=== PATIENT | female | born 1965 | race Caucasian/White ===

== ENCOUNTER 2017-07-09 14:45 | Outpatient (RCR) | payer OTHER, SELFPAY ==
[2017-07-02 15:13] VITALS: BP 137/86; PULSE 16; RESP 16; TEMP 37; BMI 36.8
--- NOTE | 2017-07-02 16:41 | PCM.WC.HP ---
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 She developed the ulcer after a varicose vein in her julio burst. She had stitches placed to close the area initially but it never healed. She has been applying neosporin, carmex and medi-honey to the wound at different times and nothing has helped. She has been prescribed compression stockings but is unable to tolerate wearing them. 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 She denies fever, chills, increased pain or erythema. 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) H/O deep venous thrombosis (Chronic) Lymphedema (Chronic) Surgical History: no surgical history Allergies/Adverse Reactions: Allergies No Known Allergies Allergy (Verified 07/02/17 17:04) Home Medications: Ambulatory Orders Medication Instructions Recorded Apixaban [Eliquis] 2.5 mg PO BID 07/02/17 - Family History Maternal Diabetes Paternal Diabetes Lives: Spouse/ Significant Other Smoking Status: Former smoker Tobacco Use: Non-smoker Alcohol: None Drugs: None Review of Systems Constitutional: Denies: Chills, Fever, Weight Change Eyes: Denies: Pain, Vision Change HEENT: Denies: Difficulty Hearing, Difficulty Swallowing, Sinus Congestion Cardiovascular: Reports: Edema. Denies: Chest Pain, Palpitations Respiratory: Denies: Cough, Shortness of Breath Gastrointestinal: Denies: Diarrhea, Nausea, Vomiting Genitourinary: Denies: Dysuria, Hematuria Skin: Reports: Wounds Endocrine: Denies: Heat/ Cold Intolerance, Polydipsia, Polyuria Hematologic/ Lymphatic: Denies: Easy Bruising, Easy Bleeding - Physical Exam Vital Signs Temp Pulse Resp BP 98.6 F 16 L 16 137/86 H 07/02/17 15:13 07/02/17 15:13 07/02/17 15:13 07/02/17 15:13 General: Alert, Oriented x3, Cooperative, No apparent distress HEENT: Atraumatic, Normocephalic Oral: Moist Mucosa Neck: Supple, No JVD, Negative Carotid Bruits Lungs: Clear to auscultation Cardiovascular: Regular rate, Regular Rhythm, - - occ. ectopy Abdomen: Soft, Non Tender, Obese Extremities: Edema, Peripheral Pulses Normal Skin: Ulcer/ Wound Wound Measurements and Assessment - Nurse 1 - General Ulcer Measurement Start: 07/02/17 15:13 Freq: Status: Active Protocol: Activity Type Activity Date Activity User E-Sign Co-Sign Detail Recorded Client Recorded Date Recorded By Document 07/02/17 15:13 MW [id number] 07/02/17 15:32 MW 07/02/17 15:13 Wound Center Nurse 1 [Ulcer Assessment Protocol: .WD.LOC] #1 Left julio cluster -Combined with other wound No -Current Size (cm) - Length 1.4 -Current Size (cm) - Width 2.0 -Current Size (cm) - Depth 0.2 -Total Square Cm 2.80 -Date of Last Picture (Recall this 07/02/17 field) -Photo Taken Yes -Epithelialization None Present -Tunneling No -Undermining/Tunneling No -Circular Undermining No -Exudate Amt Small (1-33%) -Exudate Type Serosanguineous -Wound Margin Distinct, Outline Attached -Granulation Amt Small (1-33%) -Granulation Quality [place] -Slough/Fibrin Yes -Necrosis Amt Medium (34-66%) -Necrotic Tissue Type Adherent Slough -Structure Exposed N/A -Texture (Kira-wound Skin Appearance) Assessed Localized Edema Scarring -Moisture (Kira-wound Skin Appearance Assessed ) Weeping -Color (Kira-wound Skin Appearance) Assessed Rubor -Temperature (Kira-wound Skin No Abnormality Appearance) (Pt Warm) -Tenderness on Palpation (Kira-wound No Skin Appearance) -Ulcer Cleansing Rinsed/ Irrigated with Saline -Foul Odor after Cleansing No -Anesthetic Used 4% Lidocaine Solution [Edema Assessment] -Lower Limb Edema Present No -Right Calf (cm) 45.4 -Right Ankle (cm) 26.4 -Left Calf (cm) 46.4 -Left Ankle (cm) 26.8 WC - Nurse 2 - General Ulcer CM Notes Start: 07/02/17 15:13 Freq: Status: Active Protocol: Activity Type Activity Date Activity User E-Sign Co-Sign Detail Recorded Client Recorded Date Recorded By Document 07/02/17 16:06 MW [id number] 07/02/17 16:11 MW 07/02/17 16:06 Wound Center Nurse 2 [Procedure/Treatment] #1 Left julio cluster -Time 16:06 -Correct Patient Yes -Correct Side, Site, Position Yes -Correct Procedure Yes -Procedure Performed Yes -Type of Procedure Debridement -Clinical Debridement Subcutaneous -Post Debridement Size (cm) - Length 1.5 -Post Debridement Size (cm) - Width 1.7 -Post Debridement Size (cm) - Depth 0.2 -Total Square Cm 2.55 -Wound/Ulcer Outcome Not Healed -Foul Odor after Cleansing No -Bioengineered Tissue No -Cetacaine [place] No -Bleeding Controlled with Pressure -Treatment Response Procedure Tolerated Well [See Physician Procedure note for Specifics] Pain Scale: 0-10 Numeric [Pain] -Is Patient Pain Free? Yes Psych/Mental Status: Normal Affect, Appropriate Debridement Note Post-Debridement Measurements/Treatment WC - Nurse 2 - General Ulcer CM Notes Start: 07/02/17 15:13 Freq: Status: Active Protocol: Activity Type Activity Date Activity User E-Sign Co-Sign Detail Recorded Client Recorded Date Recorded By Document 07/02/17 16:06 MW [id number] 07/02/17 16:11 MW 07/02/17 16:06 Wound Center Nurse 2 #1 Left julio cluster -Time 16:06 -Correct Patient Yes -Correct Side, Site, Position Yes -Correct Procedure Yes -Procedure Performed Yes -Type of Procedure Debridement -Clinical Debridement Subcutaneous -Post Debridement Size (cm) - Length 1.5 -Post Debridement Size (cm) - Width 1.7 -Post Debridement Size (cm) - Depth 0.2 -Total Square Cm 2.55 -Wound/Ulcer Outcome Not Healed -Foul Odor after Cleansing No -Bioengineered Tissue No -Cetacaine [place] No -Bleeding Controlled with Pressure -Treatment Response Procedure Tolerated Well Pain Scale: 0-10 Numeric Is Patient Pain Free? 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 lymphedema Plan: Fannie's wounds were evaluated and debrided today. Will use Debbie to her wounds once daily and treat her edema with tubigrips for compression. Will obtain recent vascular testing she had done in the summer. Discussed importance of decreasing edema and ways that this can be acheived. Advised her to elevate her legs when possible and avoid idle standing or sitting. Encouraged her to activate her calf muscles when possible while standing at work. Wound/ulcer cultured. Will treat based on results. Also, gave tramadol 50 mg #28 to use as needed for pain. OARRS appropriate and no signs of diversion or abuse. Advised to call if increased pain, erythema, edema or fever or chills. F/U 1 week.
--- NOTE | 2017-07-02 17:00 | HP.PCM_ITS ---
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 She developed the ulcer after a varicose vein in her julio burst. She had stitches placed to close the area initially but it never healed. She has been applying neosporin, carmex and medi-honey to the wound at different times and nothing has helped. She has been prescribed compression stockings but is unable to tolerate wearing them. 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 She denies fever , chills, increased pain or erythema. 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) H/O deep venous thrombosis (Chronic) Lymphedema (Chronic) Surgical History: no surgical history Allergies/Adverse Reactions: Allergies No Known Allergies Allergy (Verified 07/02/17 17:04) Home Medications: Ambulatory Orders Medication Instructions Recorded Apixaban [Eliquis] 2.5 mg PO BID 07/02/17 - Family History Maternal Diabetes Paternal Diabetes Lives: Spouse/ Significant Other Smoking Status: Former smoker Tobacco Use: Non-smoker Alcohol: None Drugs: None Review of Systems Constitutional: Denies: Chills, Fever, Weight Change Eyes: Denies: Pain, Vision Change HEENT: Denies: Difficulty Hearing, Difficulty Swallowing, Sinus Congestion Cardiovascular: Reports: Edema. Denies: Chest Pain, Palpitations Respiratory: Denies: Cough, Shortness of Breath Gastrointestinal: Denies: Diarrhea, Nausea, Vomiting Genitourinary: Denies: Dysuria, Hematuria Skin: Reports: Wounds Endocrine: Denies: Heat/ Cold Intolerance, Polydipsia, Polyuria Hematologic/ Lymphatic: Denies: Easy Bruising, Easy Bleeding - Physical Exam Vital Signs Temp Pulse Resp BP 98.6 F 16 L 16 137/86 H 07/02/17 15:13 07/02/17 15:13 07/02/17 15:13 07/02/17 15:13 General: Alert, Oriented x3, Cooperative, No apparent distress HEENT: Atraumatic, Normocephalic Oral: Moist Mucosa Neck: Supple, No JVD, Negative Carotid Bruits Lungs: Clear to auscultation Cardiovascular: Regular rate, Regular Rhythm, - - occ. ectopy Abdomen: Soft, Non Tender, Obese Extremities: Edema, Peripheral Pulses Normal Skin: Ulcer/ Wound Wound Measurements and Assessment - Nurse 1 - General Ulcer Measurement Start: 07/02/17 15:13 Freq: Status: Active Protocol: Activity Type Activity Date Activity User E-Sign Co-Sign Detail Recorded Client Recorded Date Recorded By Document 07/02/17 15:13 MW [id number] 07/02/17 15:32 MW 07/02/17 15:13 Wound Center Nurse 1 [Ulcer Assessment Protocol: .WD.LOC] #1 Left julio cluster -Combined with other wound No -Current Size (cm) - Length 1.4 -Current Size (cm) - Width 2.0 -Current Size (cm) - Depth 0.2 -Total Square Cm 2.80 -Date of Last Picture (Recall this 07/02/17 field) -Photo Taken Yes -Epithelialization None Present -Tunneling No -Undermining/Tunneling No -Circular Undermining No -Exudate Amt Small (1-33%) -Exudate Type Serosanguineous -Wound Margin Distinct, Outline Attached -Granulation Amt Small (1-33%) -Granulation Quality [place] -Slough/Fibrin Yes -Necrosis Amt Medium (34-66%) -Necrotic Tissue Type Adherent Slough -Structure Exposed N/A -Texture (Kira-wound Skin Appearance) Assessed Localized Edema Scarring -Moisture (Kira-wound Skin Appearance Assessed ) Weeping -Color (Kira-wound Skin Appearance) Assessed Rubor -Temperature (Kira-wound Skin No Abnormality Appearance) (Pt Warm) -Tenderness on Palpation (Kira-wound No Skin Appearance) -Ulcer Cleansing Rinsed/ Irrigated with Saline -Foul Odor after Cleansing No -Anesthetic Used 4% Lidocaine Solution [Edema Assessment] -Lower Limb Edema Present No -Right Calf (cm) 45.4 -Right Ankle (cm) 26.4 -Left Calf (cm) 46.4 -Left Ankle (cm) 26.8 WC - Nurse 2 - General Ulcer CM Notes Start: 07/02/17 15:13 Freq: Status: Active Protocol: Activity Type Activity Date Activity User E-Sign Co-Sign Detail Recorded Client Recorded Date Recorded By Document 07/02/17 16:06 MW [id number] 07/02/17 16:11 MW 07/02/17 16:06 Wound Center Nurse 2 [Procedure/Treatment] #1 Left julio cluster -Time 16:06 -Correct Patient Yes -Correct Side, Site, Position Yes -Correct Procedure Yes -Procedure Performed Yes -Type of Procedure Debridement -Clinical Debridement Subcutaneous -Post Debridement Size (cm) - Length 1.5 -Post Debridement Size (cm) - Width 1.7 -Post Debridement Size (cm) - Depth 0.2 -Total Square Cm 2.55 -Wound/Ulcer Outcome Not Healed -Foul Odor after Cleansing No -Bioengineered Tissue No -Cetacaine [place] No -Bleeding Controlled with Pressure -Treatment Response Procedure Tolerated Well [See Physician Procedure note for Specifics] Pain Scale: 0-10 Numeric [Pain] -Is Patient Pain Free? Yes Psych/Mental Status: Normal Affect, Appropriate Debridement Note Post-Debridement Measurements/Treatment WC - Nurse 2 - General Ulcer CM Notes Start: 07/02/17 15:13 Freq: Status: Active Protocol: Activity Type Activity Date Activity User E-Sign Co-Sign Detail Recorded Client Recorded Date Recorded By Document 07/02/17 16:06 MW [id number] 07/02/17 16:11 MW 07/02/17 16:06 Wound Center Nurse 2 #1 Left julio cluster -Time 16:06 -Correct Patient Yes -Correct Side, Site, Position Yes -Correct Procedure Yes -Procedure Performed Yes -Type of Procedure Debridement -Clinical Debridement Subcutaneous -Post Debridement Size (cm) - Length 1.5 -Post Debridement Size (cm) - Width 1.7 -Post Debridement Size (cm) - Depth 0.2 -Total Square Cm 2.55 -Wound/Ulcer Outcome Not Healed -Foul Odor after Cleansing No -Bioengineered Tissue No -Cetacaine [place] No -Bleeding Controlled with Pressure -Treatment Response Procedure Tolerated Well Pain Scale: 0-10 Numeric Is Patient Pain Free? 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 lymphedema Plan: Fannie's wounds were evaluated and debrided today. Will use Debbie to her wounds once daily and treat her edema with tubigrips for compression. Will obtain recent vascular testing she had done in the summer. Discussed importance of decreasing edema and ways that this can be acheived. Advised her to elevate her legs when possible and avoid idle standing or sitting. Encouraged her to activate her calf muscles when possible while standing at work. Wound/ulcer cultured. Will treat based on results. Also, gave tramadol 50 mg #28 to use as needed for pain. OARRS appropriate and no signs of diversion or abuse. Advised to call if increased pain, erythema, edema or fever or chills. F/U 1 week.
[2017-07-09 16:00] VITALS: BP 140/96; PULSE 87; RESP 18; TEMP 37.4; BMI 36.8
--- NOTE | 2017-07-09 20:08 | PCM.WC.PN ---
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 She developed the ulcer after a varicose vein in her julio burst. She had stitches placed to close the area initially but it never healed. She has been applying neosporin, carmex and medi-honey to the wound at different times and nothing has helped. She has been prescribed compression stockings but is unable to tolerate wearing them. 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 She denies fever, chills, increased pain or erythema. Progress of Wound: Fannie is here for follow up of nonhealing wound/ulcer of her left julio. Debbie was used on the wound for the last week but she states that it was very adherent and dried to the wound. She also has had increased pain. Wound culture taken last week was positive for coag neg. staph which was felt to be skin contaminant and no sensitivities were performed by the micro lab. She denies fever or chills or incresed drainage. She tolerated compression. - Physical Exam Vital Signs Temp Pulse Resp BP 99.3 F H 87 18 140/96 H 07/09/17 16:00 07/09/17 16:00 07/09/17 16:00 01/26/18 16:00 General: Alert, Oriented x3, Cooperative, No apparent distress HEENT: Atraumatic, Normocephalic Oral: Moist Mucosa Abdomen: Obese Extremities: Edema Skin: Ulcer/ Wound Wound Measurements and Assessment - Nurse 1 - General Ulcer Measurement Start: 07/02/17 15:13 Freq: Status: Active Protocol: Activity Type Activity Date Activity User E-Sign Co-Sign Detail Recorded Client Recorded Date Recorded By Document 07/09/17 16:00 MW [id number] 07/09/17 16:02 MW 07/09/17 16:00 Wound Center Nurse 1 [Ulcer Assessment Protocol: .WD.LOC] #1 Left julio cluster -Current Size (cm) - Length 1.5 -Current Size (cm) - Width 1.5 -Current Size (cm) - Depth 0.1 -Total Square Cm 2.25 -Photo Taken No -Exudate Amt Small (1-33%) -Exudate Type Serosanguineous -Wound Margin Distinct, Outline Attached -Granulation Amt Small (1-33%) -Granulation Quality [place] -Necrosis Amt Small (1-33%) -Necrotic Tissue Type Adherent Slough -Structure Exposed N/A -Texture (Kira-wound Skin Appearance) Localized Edema -Moisture (Kira-wound Skin Appearance No Abnormality ) -Color (Kira-wound Skin Appearance) Erythema -Temperature (Kira-wound Skin No Abnormality Appearance) (Pt Warm) -Ulcer Cleansing Rinsed/ Irrigated with Saline -Foul Odor after Cleansing No -Anesthetic Used 4% Lidocaine Solution [Edema Assessment] -Left Calf (cm) 46.9 -Left Ankle (cm) 29.4 WC - Nurse 2 - General Ulcer CM Notes Start: 07/02/17 15:13 Freq: Status: Active Protocol: Activity Type Activity Date Activity User E-Sign Co-Sign Detail Recorded Client Recorded Date Recorded By Document 07/09/17 16:26 TM [id number] 07/09/17 16:33 TM 07/09/17 16:26 Wound Center Nurse 2 [Procedure/Treatment] #1 Left julio cluster -Time 16:31 -Correct Patient Yes -Correct Side, Site, Position Yes -Correct Procedure Yes -Procedure Performed Yes -Type of Procedure Debridement -Clinical Debridement Subcutaneous -Post Debridement Size (cm) - Length 1.2 -Post Debridement Size (cm) - Width 1.5 -Post Debridement Size (cm) - Depth 0.2 -Total Square Cm 1.80 -Wound/Ulcer Outcome Not Healed -Ulcer Cleansing Rinsed/ Irrigated with Saline -Foul Odor after Cleansing No -Bioengineered Tissue No -Cetacaine [place] No -Topical Lidocaine (%) 5 -Bleeding Controlled with Pressure -Treatment Response Procedure Tolerated Well [See Physician Procedure note for Specifics] Pain Scale: 0-10 Numeric [Pain] -Is Patient Pain Free? Yes Psych/Mental Status: Normal Affect, Appropriate Debridement Note Post-Debridement Measurements/Treatment WC - Nurse 2 - General Ulcer CM Notes Start: 07/02/17 15:13 Freq: Status: Active Protocol: Activity Type Activity Date Activity User E-Sign Co-Sign Detail Recorded Client Recorded Date Recorded By Document 07/02/17 16:06 MW [id number] 07/02/17 16:11 MW Document 07/09/17 16:26 TM [id number] 07/09/17 16:33 TM 07/02/17 07/09/17 16:06 16:26 Wound Center Nurse 2 #1 Left julio cluster -Time 16:06 16:31 -Correct Patient Yes Yes -Correct Side, Site, Position Yes Yes -Correct Procedure Yes Yes -Procedure Performed Yes Yes -Type of Procedure Debridement Debridement -Clinical Debridement Subcutaneous Subcutaneous -Post Debridement Size (cm) - Length 1.5 1.2 -Post Debridement Size (cm) - Width 1.7 1.5 -Post Debridement Size (cm) - Depth 0.2 0.2 -Total Square Cm 2.55 1.80 -Wound/Ulcer Outcome Not Healed Not Healed -Ulcer Cleansing Rinsed/ Irrigated with Saline -Foul Odor after Cleansing No No -Bioengineered Tissue No No -Cetacaine [place] No No -Topical Lidocaine (%) 5 -Bleeding Controlled with Pressure Pressure -Treatment Response Procedure Procedure Tolerated Well Tolerated Well Pain Scale: 0-10 Numeric Is Patient Pain Free? 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 lymphedema Plan: Fannie's wounds were evaluated and debrided today. Will have her change to collagen hydrogel and adaptic changed once daily for dressings and treat her edema with tubigrips for compression. Will have her start Augmentin for treatment of wound culture due to her pain. Reviewed vascular testing from [facility] which showed normal JOE's and no evidence of PAD but her venous testing was not in depth and did not assess for competency or reflux. Venous studies were ordered to be done at the hospital to assess the competency of her veins and assess for reflux as I feel that this is likely playing a major role in the poor healing she has had. Discussed importance of decreasing edema and ways that this can be acheived. Advised her to elevate her legs when possible and avoid idle standing or sitting. Encouraged her to activate her calf muscles when possible while standing at work. Advised to call if increased pain, erythema, edema or fever or chills. F/U 1 week.
--- NOTE | 2017-07-09 20:16 | PN.PCM_ITS ---
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 She developed the ulcer after a varicose vein in her julio burst. She had stitches placed to close the area initially but it never healed. She has been applying neosporin, carmex and medi-honey to the wound at different times and nothing has helped. She has been prescribed compression stockings but is unable to tolerate wearing them. 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 She denies fever , chills, increased pain or erythema. Progress of Wound: Fannie is here for follow up of nonhealing wound/ulcer of her left julio. Debbie was used on the wound for the last week but she states that it was very adherent and dried to the wound. She also has had increased pain. Wound culture taken last week was positive for coag neg. staph which was felt to be skin contaminant and no sensitivities were performed by the micro lab. She denies fever or chills or incresed drainage. She tolerated compression. - Physical Exam Vital Signs Temp Pulse Resp BP 99.3 F H 87 18 140/96 H 07/09/17 16:00 07/09/17 16:00 07/09/17 16:00 01/26/18 16:00 General: Alert, Oriented x3, Cooperative, No apparent distress HEENT: Atraumatic, Normocephalic Oral: Moist Mucosa Abdomen: Obese Extremities: Edema Skin: Ulcer/ Wound Wound Measurements and Assessment - Nurse 1 - General Ulcer Measurement Start: 07/02/17 15:13 Freq: Status: Active Protocol: Activity Type Activity Date Activity User E-Sign Co-Sign Detail Recorded Client Recorded Date Recorded By Document 07/09/17 16:00 MW [id number] 07/09/17 16:02 MW 07/09/17 16:00 Wound Center Nurse 1 [Ulcer Assessment Protocol: .WD.LOC] #1 Left julio cluster -Current Size (cm) - Length 1.5 -Current Size (cm) - Width 1.5 -Current Size (cm) - Depth 0.1 -Total Square Cm 2.25 -Photo Taken No -Exudate Amt Small (1-33%) -Exudate Type Serosanguineous -Wound Margin Distinct, Outline Attached -Granulation Amt Small (1-33%) -Granulation Quality Red -Necrosis Amt Small (1-33%) -Necrotic Tissue Type Adherent Slough -Structure Exposed N/A -Texture (Kira-wound Skin Appearance) Localized Edema -Moisture (Kira-wound Skin Appearance No Abnormality ) -Color (Kira-wound Skin Appearance) Erythema -Temperature (Kira-wound Skin No Abnormality Appearance) (Pt Warm) -Ulcer Cleansing Rinsed/ Irrigated with Saline -Foul Odor after Cleansing No -Anesthetic Used 4% Lidocaine Solution [Edema Assessment] -Left Calf (cm) 46.9 -Left Ankle (cm) 29.4 WC - Nurse 2 - General Ulcer CM Notes Start: 07/02/17 15:13 Freq: Status: Active Protocol: Activity Type Activity Date Activity User E-Sign Co-Sign Detail Recorded Client Recorded Date Recorded By Document 07/09/17 16:26 TM [id number] 07/09/17 16:33 TM 07/09/17 16:26 Wound Center Nurse 2 [Procedure/Treatment] #1 Left julio cluster -Time 16:31 -Correct Patient Yes -Correct Side, Site, Position Yes -Correct Procedure Yes -Procedure Performed Yes -Type of Procedure Debridement -Clinical Debridement Subcutaneous -Post Debridement Size (cm) - Length 1.2 -Post Debridement Size (cm) - Width 1.5 -Post Debridement Size (cm) - Depth 0.2 -Total Square Cm 1.80 -Wound/Ulcer Outcome Not Healed -Ulcer Cleansing Rinsed/ Irrigated with Saline -Foul Odor after Cleansing No -Bioengineered Tissue No -Cetacaine Stella No -Topical Lidocaine (%) 5 -Bleeding Controlled with Pressure -Treatment Response Procedure Tolerated Well [See Physician Procedure note for Specifics] Pain Scale: 0-10 Numeric [Pain] -Is Patient Pain Free? Yes Psych/Mental Status: Normal Affect, Appropriate Debridement Note Post-Debridement Measurements/Treatment WC - Nurse 2 - General Ulcer CM Notes Start: 07/02/17 15:13 Freq: Status: Active Protocol: Activity Type Activity Date Activity User E-Sign Co-Sign Detail Recorded Client Recorded Date Recorded By Document 07/02/17 16:06 MW [id number] 07/02/17 16:11 MW Document 07/09/17 16:26 TM [id number] 07/09/17 16:33 TM 07/02/17 07/09/17 16:06 16:26 Wound Center Nurse 2 #1 Left julio cluster -Time 16:06 16:31 -Correct Patient Yes Yes -Correct Side, Site, Position Yes Yes -Correct Procedure Yes Yes -Procedure Performed Yes Yes -Type of Procedure Debridement Debridement -Clinical Debridement Subcutaneous Subcutaneous -Post Debridement Size (cm) - Length 1.5 1.2 -Post Debridement Size (cm) - Width 1.7 1.5 -Post Debridement Size (cm) - Depth 0.2 0.2 -Total Square Cm 2.55 1.80 -Wound/Ulcer Outcome Not Healed Not Healed -Ulcer Cleansing Rinsed/ Irrigated with Saline -Foul Odor after Cleansing No No -Bioengineered Tissue No No -Cetacaine Stella No No -Topical Lidocaine (%) 5 -Bleeding Controlled with Pressure Pressure -Treatment Response Procedure Procedure Tolerated Well Tolerated Well Pain Scale: 0-10 Numeric Is Patient Pain Free? Yes Yes Wound debrided: left julio cluster Laterality: Left Type of Debridement: Excisional debridement Anesthesia Used: 4% Lidocaine Solution Depth: Down to and including healthy tissue, in the subcutaneous layer Percentage of wound debrided: 100 Instrument Used: 3mm curette Tissue Removed: yellow slough, devitalized tissue Severity: Fat Layer Exposed Amount of bleeding with debridement: Mild Bleeding Controlled with: Compression and gauze Patient tolerated procedure well Assessment/Plan Active Problems Venous ulcer of left lower extremity with varicose veins (Chronic) Protein S deficiency (Chronic) Factor V deficiency (Chronic) [facility] current use of anticoagulant (Chronic) H/O deep venous thrombosis (Chronic) Lymphedema (Chronic) Assessment: left julio venous ulcer. lymphedema Plan: Fannie's wounds were evaluated and debrided today. Will have her change to collagen hydrogel and adaptic changed once daily for dressings and treat her edema with tubigrips for compression. Will have her start Augmentin for treatment of wound culture due to her pain. Reviewed vascular testing from [facility] which showed normal JOE's and no evidence of PAD but her venous testing was not in depth and did not assess for competency or reflux. Venous studies were ordered to be done at the hospital to assess the competency of her veins and assess for reflux as I feel that this is likely playing a major role in the poor healing she has had. Discussed importance of decreasing edema and ways that this can be acheived. Advised her to elevate her legs when possible and avoid idle standing or sitting. Encouraged her to activate her calf muscles when possible while standing at work. Advised to call if increased pain, erythema, edema or fever or chills. F/U 1 week.
== END 2017-07-14 23:59 ==
LOC: WC 14:45
PROVIDERS: PCP Family Medicine; Visit Provider Family Medicine
DX: I83.028 Varicose veins of left lower extremity with ulcer other part of lower leg (principal); L97.822 Non-pressure chronic ulcer of other part of left lower leg with fat layer exposed; D68.59 Other primary thrombophilia; D68.2 Hereditary deficiency of other clotting factors; Z79.01 Long term (current) use of anticoagulants; I89.0 Lymphedema, not elsewhere classified; Z86.718 Personal history of other venous thrombosis and embolism
CPT/HCPCS: 11042; 87070; 87075; 87205; 99203; G0463

== ENCOUNTER 2017-07-30 14:45 | Outpatient (RCR) | payer OTHER, SELFPAY ==
[2017-07-09 16:00] VITALS: BP 140/96
[2017-07-15 01:14] VITALS: PULSE 87; RESP 18; TEMP 37.4
--- NOTE | 2017-07-16 13:47 | VDLE_ITS ---
Reason For Study: Non-healing wound RIGHT LEFT GSV is normal. GSV is normal. CFV is compressible, spontaneous, phasic, CFV is compressible, spontaneous, phasic, competent and demonstrates normal competent, and demonstrates normal augmentation. augmentation. FV is compressible, spontaneous, phasic, FV is compressible, spontaneous, phasic, competent and demonstrates normal competent and demonstrates normal augmentation. augmentation. POP V is compressible, spontaneous, phasic, POP V is compressible, spontaneous, phasic, competent and demonstrates normal competent and demonstrates normal augmentation. augmentation. T/P Trunk is compressible. T/P Trunk is compressible. PTV is compressible. PTV is compressible. RT PerV is compressible. LT PerV is compressible. SFJ is competent SFJ is INCOMPETENT GSV is INCOMPETENT with reflux greater GSV is INCOMPETENT with reflux greater than .5 sec and diameter of .49 x .45 cm than .5 sec and diameter of .97 x .96 cm SSV is INCOMPETENT with reflux greater GSV branch at S3 is INCOMPETENT with reflux than .5 sec and diameter of .66 x .65 cm. greater than .5 sec and diameter of .71 Procedure x .73 cm Exam performed in department. SSV is INCOMPETENT with reflux greater A preliminary report was called and/or faxed than .5 sec and diameter of .37 x .34 cm. to [facility]. Interpretation Summary Deep veins of the lower extremities are bilaterally patent and compressible segmentally. There is no evidence of deep vein thrombosis on either side. Valvular competence appears intact within the proximal deep venous systems bilaterally. The greater saphenous veins appear bilaterally patent and compressible segmentally. The right sapheno-femoral junction is competent . The left sapheno- femoral junction is incompetent . Segmental valvular incompetence is noted within the greater saphenous veins bilaterally. Small saphenous veins are patent and incompetent bilaterally. The left accessory saphenous vein at the S3 position is incompetent. Ordering Physician: Domonique Liang Referring Physician: Domonique Liang Performed By: Liat Figueroa RVT
[2017-07-16 15:53] VITALS: BP 143/78; PULSE 83; RESP 16; BMI 36.8
--- NOTE | 2017-07-16 19:22 | PCM.WC.PN ---
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 She developed the ulcer after a varicose vein in her julio burst. She had stitches placed to close the area initially but it never healed. She has been applying neosporin, carmex and medi-honey to the wound at different times and nothing has helped. She has been prescribed compression stockings but is unable to tolerate wearing them. 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 She denies fever, chills, increased pain or erythema. Progress of Wound: Fannie is here for follow up of nonhealing wound/ulcer of her left julio. She used collagen hydrogel to the wound this week with adaptic and states that it stuck to the wound and pulled the skin of the wound. She also has had increased pain. She is almost finished with antibiotics but still has a lot of pain in her leg around the wound and describes it as needles pricking her. She denies fever or chills or increased drainage. She tolerated compression. She had venous studies done today. - Physical Exam Vital Signs Temp Pulse Resp BP 99.3 F H 83 16 143/78 H 07/15/17 01:14 07/16/17 15:53 07/16/17 15:53 07/16/17 15:53 General: Alert, Oriented x3, Cooperative, No apparent distress HEENT: Atraumatic, Normocephalic Oral: Moist Mucosa Abdomen: Obese Extremities: Edema, Tenderness Skin: Ulcer/ Wound Wound Measurements and Assessment WC - Nurse 1 - General Ulcer Measurement Start: 07/16/17 15:42 Freq: Status: Active Protocol: Activity Type Activity Date Activity User E-Sign Co-Sign Detail Recorded Client Recorded Date Recorded By Document 07/16/17 15:53 TN [id number] 07/16/17 15:56 TN 07/16/17 15:53 Wound Center Nurse 1 [Ulcer Assessment Protocol: RADHA.MAREN.LOC] #1 Left julio cluster -Combined with other wound No -Current Size (cm) - Length 0.6 -Current Size (cm) - Width 1.6 -Current Size (cm) - Depth 0.2 -Total Square Cm 0.96 -Photo Taken No -Epithelialization None Present -Tunneling No -Undermining/Tunneling No -Circular Undermining No -Classification - Thickness Full Thickness without Exposed Support Structure -Exudate Amt Small (1-33%) -Exudate Type Serosanguineous -Wound Margin Distinct, Outline Attached -Granulation Amt None Present (0 %) -Slough/Fibrin Yes -Necrosis Amt Small (1-33%) -Necrotic Tissue Type Adherent Slough -Structure Exposed None/Limited to Skin Breakdown -Texture (Kira-wound Skin Appearance) Assessed Localized Edema Scarring -Moisture (Kira-wound Skin Appearance No Abnormality ) Assessed -Color (Kira-wound Skin Appearance) Assessed Erythema Hemosiderin Staining -Temperature (Kira-wound Skin No Abnormality Appearance) (Pt Warm) -Tenderness on Palpation (Kira-wound Yes Skin Appearance) -Ulcer Cleansing Rinsed/ Irrigated with Saline -Foul Odor after Cleansing No -Anesthetic Used 4% Lidocaine Solution 5% Lidocaine Gel [Edema Assessment] -Lower Limb Edema Present No WC - Nurse 2 - General Ulcer CM Notes Start: 07/16/17 15:42 Freq: Status: Active Protocol: Activity Type Activity Date Activity User E-Sign Co-Sign Detail Recorded Client Recorded Date Recorded By Document 07/16/17 15:55 TM [id number] 07/16/17 15:59 TM 07/16/17 15:55 Wound Center Nurse 2 [Procedure/Treatment] #1 Left julio cluster -Time 15:58 -Correct Patient Yes -Correct Side, Site, Position Yes -Correct Procedure Yes -Procedure Performed Yes -Type of Procedure Debridement -Clinical Debridement Subcutaneous -Post Debridement Size (cm) - Length 1.0 -Post Debridement Size (cm) - Width 1.3 -Post Debridement Size (cm) - Depth 0.2 -Total Square Cm 1.30 -Wound/Ulcer Outcome Not Healed -Ulcer Cleansing Rinsed/ Irrigated with Saline -Foul Odor after Cleansing No -Bioengineered Tissue No -Cetacaine [place] No -Topical Lidocaine (%) 5 -Bleeding Controlled with Pressure -Treatment Response Procedure Tolerated Well [See Physician Procedure note for Specifics] Pain Scale: 0-10 Numeric [Pain] -Is Patient Pain Free? Yes Psych/Mental Status: Normal Affect, Appropriate Debridement Note Post-Debridement Measurements/Treatment WC - Nurse 2 - General Ulcer CM Notes Start: 07/16/17 15:42 Freq: Status: Active Protocol: Activity Type Activity Date Activity User E-Sign Co-Sign Detail Recorded Client Recorded Date Recorded By Document 07/16/17 15:55 [id number] 07/16/17 15:59 07/16/17 15:55 Wound Center Nurse 2 #1 Left julio cluster -Time 15:58 -Correct Patient Yes -Correct Side, Site, Position Yes -Correct Procedure Yes -Procedure Performed Yes -Type of Procedure Debridement -Clinical Debridement Subcutaneous -Post Debridement Size (cm) - Length 1.0 -Post Debridement Size (cm) - Width 1.3 -Post Debridement Size (cm) - Depth 0.2 -Total Square Cm 1.30 -Wound/Ulcer Outcome Not Healed -Ulcer Cleansing Rinsed/ Irrigated with Saline -Foul Odor after Cleansing No -Bioengineered Tissue No -Cetacaine [place] No -Topical Lidocaine (%) 5 -Bleeding Controlled with Pressure -Treatment Response Procedure Tolerated Well Pain Scale: 0-10 Numeric Is Patient Pain Free? Yes Wound debrided: left julio cluster Laterality: Left Type of Debridement: Excisional debridement Anesthesia Used: 5% Lidocaine Gel Depth: Down to and including healthy tissue, in the subcutaneous layer Percentage of wound debrided: 100 Instrument Used: 5mm curette Tissue Removed: yellow slough, devitalized tissue Severity: Fat Layer Exposed Amount of bleeding with debridement: Mild Bleeding Controlled with: Compression and gauze Patient tolerated procedure well Assessment/Plan Active Problems Venous ulcer of left lower extremity with varicose veins (Chronic) Protein S deficiency (Chronic) Factor V deficiency (Chronic) 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 lymphedema Plan: Fannie's wounds were evaluated and debrided today. Will have her continue collagen hydrogel and adaptic changed once daily for dressings and treat her edema with tubigrips for compression. Will have her use a washcloth before removing dressings to help alleviate the skin tearing that she experiences. Will have her complete Augmentin for treatment of wound culture. Reviewed vascular testing from [facility] which showed normal JOE's and no evidence of PAD. Venous studies were done today at [facility] and showed that she has incometence of veins in her legs b/l at [facility] and [facility] and [facility]. This is likely playing a major role in the poor healing she has had but her continued high level of pain is concerning to me and I would like to r/o any underlying deeper infection. CT with and without contrast was ordered of her left julio area to r/o underlying abscess or soft tissue infection that may need surgical debridement or IV antibiotics as well as osteomyelitis given the level of pain being out of proportion to the size of her wound. Discussed importance of decreasing edema and ways that this can be acheived. Advised her to elevate her legs when possible and avoid idle standing or sitting. Encouraged her to activate her calf muscles when possible while standing at work. Will also refer her to Dr. Paz for evaluation for venous ablation. Advised to call if increased pain, erythema, edema or fever or chills. F/U 2 weeks.
--- NOTE | 2017-07-16 19:33 | PN.PCM_ITS ---
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 She developed the ulcer after a varicose vein in her julio burst. She had stitches placed to close the area initially but it never healed. She has been applying neosporin, carmex and medi-honey to the wound at different times and nothing has helped. She has been prescribed compression stockings but is unable to tolerate wearing them. 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 She denies fever , chills, increased pain or erythema. Progress of Wound: Fannie is here for follow up of nonhealing wound/ulcer of her left julio. She used collagen hydrogel to the wound this week with adaptic and states that it stuck to the wound and pulled the skin of the wound. She also has had increased pain. She is almost finished with antibiotics but still has a lot of pain in her leg around the wound and describes it as needles pricking her. She denies fever or chills or increased drainage. She tolerated compression. She had venous studies done today. - Physical Exam Vital Signs Temp Pulse Resp BP 99.3 F H 83 16 143/78 H 07/15/17 01:14 07/16/17 15:53 07/16/17 15:53 07/16/17 15:53 General: Alert, Oriented x3, Cooperative, No apparent distress HEENT: Atraumatic, Normocephalic Oral: Moist Mucosa Abdomen: Obese Extremities: Edema, Tenderness Skin: Ulcer/ Wound Wound Measurements and Assessment WC - Nurse 1 - General Ulcer Measurement Start: 07/16/17 15:42 Freq: Status: Active Protocol: Activity Type Activity Date Activity User E-Sign Co-Sign Detail Recorded Client Recorded Date Recorded By Document 07/16/17 15:53 TN [id number] 07/16/17 15:56 TN 07/16/17 15:53 Wound Center Nurse 1 [Ulcer Assessment Protocol: RADHA.MAREN.LOC] #1 Left julio cluster -Combined with other wound No -Current Size (cm) - Length 0.6 -Current Size (cm) - Width 1.6 -Current Size (cm) - Depth 0.2 -Total Square Cm 0.96 -Photo Taken No -Epithelialization None Present -Tunneling No -Undermining/Tunneling No -Circular Undermining No -Classification - Thickness Full Thickness without Exposed Support Structure -Exudate Amt Small (1-33%) -Exudate Type Serosanguineous -Wound Margin Distinct, Outline Attached -Granulation Amt None Present (0 %) -Slough/Fibrin Yes -Necrosis Amt Small (1-33%) -Necrotic Tissue Type Adherent Slough -Structure Exposed None/Limited to Skin Breakdown -Texture (Kira-wound Skin Appearance) Assessed Localized Edema Scarring -Moisture (Kira-wound Skin Appearance No Abnormality ) Assessed -Color (Kira-wound Skin Appearance) Assessed Erythema Hemosiderin Staining -Temperature (Kira-wound Skin No Abnormality Appearance) (Pt Warm) -Tenderness on Palpation (Kira-wound Yes Skin Appearance) -Ulcer Cleansing Rinsed/ Irrigated with Saline -Foul Odor after Cleansing No -Anesthetic Used 4% Lidocaine Solution 5% Lidocaine Gel [Edema Assessment] -Lower Limb Edema Present No WC - Nurse 2 - General Ulcer CM Notes Start: 07/16/17 15:42 Freq: Status: Active Protocol: Activity Type Activity Date Activity User E-Sign Co-Sign Detail Recorded Client Recorded Date Recorded By Document 07/16/17 15:55 TM [id number] 07/16/17 15:59 TM 07/16/17 15:55 Wound Center Nurse 2 [Procedure/Treatment] #1 Left julio cluster -Time 15:58 -Correct Patient Yes -Correct Side, Site, Position Yes -Correct Procedure Yes -Procedure Performed Yes -Type of Procedure Debridement -Clinical Debridement Subcutaneous -Post Debridement Size (cm) - Length 1.0 -Post Debridement Size (cm) - Width 1.3 -Post Debridement Size (cm) - Depth 0.2 -Total Square Cm 1.30 -Wound/Ulcer Outcome Not Healed -Ulcer Cleansing Rinsed/ Irrigated with Saline -Foul Odor after Cleansing No -Bioengineered Tissue No -Cetacaine [place] No -Topical Lidocaine (%) 5 -Bleeding Controlled with Pressure -Treatment Response Procedure Tolerated Well [See Physician Procedure note for Specifics] Pain Scale: 0-10 Numeric [Pain] -Is Patient Pain Free? Yes Psych/Mental Status: Normal Affect, Appropriate Debridement Note Post-Debridement Measurements/Treatment WC - Nurse 2 - General Ulcer CM Notes Start: 07/16/17 15:42 Freq: Status: Active Protocol: Activity Type Activity Date Activity User E-Sign Co-Sign Detail Recorded Client Recorded Date Recorded By Document 07/16/17 15:55 [id number] 07/16/17 15:59 07/16/17 15:55 Wound Center Nurse 2 #1 Left julio cluster -Time 15:58 -Correct Patient Yes -Correct Side, Site, Position Yes -Correct Procedure Yes -Procedure Performed Yes -Type of Procedure Debridement -Clinical Debridement Subcutaneous -Post Debridement Size (cm) - Length 1.0 -Post Debridement Size (cm) - Width 1.3 -Post Debridement Size (cm) - Depth 0.2 -Total Square Cm 1.30 -Wound/Ulcer Outcome Not Healed -Ulcer Cleansing Rinsed/ Irrigated with Saline -Foul Odor after Cleansing No -Bioengineered Tissue No -Cetacaine [place] No -Topical Lidocaine (%) 5 -Bleeding Controlled with Pressure -Treatment Response Procedure Tolerated Well Pain Scale: 0-10 Numeric Is Patient Pain Free? Yes Wound debrided: left julio cluster Laterality: Left Type of Debridement: Excisional debridement Anesthesia Used: 5% Lidocaine Gel Depth: Down to and including healthy tissue, in the subcutaneous layer Percentage of wound debrided: 100 Instrument Used: 5mm curette Tissue Removed: yellow slough, devitalized tissue Severity: Fat Layer Exposed Amount of bleeding with debridement: Mild Bleeding Controlled with: Compression and gauze Patient tolerated procedure well Assessment/Plan Active Problems Venous ulcer of left lower extremity with varicose veins (Chronic) Protein S deficiency (Chronic) Factor V deficiency (Chronic) 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 lymphedema Plan: Fannie's wounds were evaluated and debrided today. Will have her continue collagen hydrogel and adaptic changed once daily for dressings and treat her edema with tubigrips for compression. Will have her use a washcloth before removing dressings to help alleviate the skin tearing that she experiences. Will have her complete Augmentin for treatment of wound culture. Reviewed vascular testing from [facility] which showed normal JOE's and no evidence of PAD. Venous studies were done today at [facility] and showed that she has incometence of veins in her legs b/l at [facility] and [facility]. This is likely playing a major role in the poor healing she has had but her continued high level of pain is concerning to me and I would like to r/o any underlying deeper infection. CT with and without contrast was ordered of her left julio area to r/o underlying abscess or soft tissue infection that may need surgical debridement or IV antibiotics as well as osteomyelitis given the level of pain being out of proportion to the size of her wound. Discussed importance of decreasing edema and ways that this can be acheived. Advised her to elevate her legs when possible and avoid idle standing or sitting. Encouraged her to activate her calf muscles when possible while standing at work. Will also refer her to Dr. Paz for evaluation for venous ablation. Advised to call if increased pain, erythema, edema or fever or chills. F/U 2 weeks.
[2017-07-30 14:40] VITALS: BP 126/75; PULSE 81; RESP 16; TEMP 37.4; BMI 36.8
--- NOTE | 2017-07-30 18:58 | PCM.WC.PN ---
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 She developed the ulcer after a varicose vein in her julio burst. She had stitches placed to close the area initially but it never healed. She has been applying neosporin, carmex and medi-honey to the wound at different times and nothing has helped. She has been prescribed compression stockings but is unable to tolerate wearing them. 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 She denies fever, chills, increased pain or erythema. Progress of Wound: Fannie is here for follow up of nonhealing wound/ulcer of her left julio. She used collagen hydrogel to the wound this week with adaptic and has been tolerating this well. She underwent CT scan of her left lower leg today to r/o osteomyelitis or abscess which did not show either. She denies fever or chills or increased drainage. She tolerated compression. No odor or fever or chills. - Physical Exam Vital Signs Temp Pulse Resp BP 99.3 F H 81 16 126/75 H 07/30/17 14:40 07/30/17 14:40 07/30/17 14:40 07/30/17 14:40 General: Alert, Oriented x3, Cooperative, No apparent distress HEENT: Atraumatic, Normocephalic Oral: Moist Mucosa Extremities: Edema Skin: Ulcer/ Wound Wound Measurements and Assessment WC - Nurse 1 - General Ulcer Measurement Start: 07/16/17 15:42 Freq: Status: Active Protocol: Activity Type Activity Date Activity User E-Sign Co-Sign Detail Recorded Client Recorded Date Recorded By Document 07/30/17 14:40 MW [id number] 07/30/17 14:48 MW 07/30/17 14:40 Wound Center Nurse 1 [Ulcer Assessment] #1 Left julio cluster -Combined with other wound No -Current Size (cm) - Length 1.2 -Current Size (cm) - Width 1.3 -Current Size (cm) - Depth 0.2 -Total Square Cm 1.56 -Date of Last Picture (Recall this 07/30/17 field) -Photo Taken Yes -Epithelialization None Present -Tunneling No -Undermining/Tunneling No -Circular Undermining No -Exudate Amt Small (1-33%) -Exudate Type Serosanguineous -Wound Margin Distinct, Outline Attached -Granulation Amt None Present (0 %) -Granulation Quality Hyper- granulation -Slough/Fibrin Yes -Necrosis Amt Large (67-100%) -Necrotic Tissue Type Adherent Slough -Structure Exposed N/A -Texture (Kira-wound Skin Appearance) Assessed Localized Edema -Moisture (Kira-wound Skin Appearance No Abnormality ) Assessed -Color (Kira-wound Skin Appearance) Assessed Rubor -Temperature (Kira-wound Skin No Abnormality Appearance) (Pt Warm) -Tenderness on Palpation (Kira-wound No Skin Appearance) -Ulcer Cleansing Rinsed/ Irrigated with Saline -Foul Odor after Cleansing No -Anesthetic Used 5% Lidocaine Gel [Edema Assessment] -Lower Limb Edema Present Yes -Right Calf (cm) 46.5 -Right Ankle (cm) 30.5 WC - Nurse 2 - General Ulcer CM Notes Start: 07/16/17 15:42 Freq: Status: Active Protocol: Activity Type Activity Date Activity User E-Sign Co-Sign Detail Recorded Client Recorded Date Recorded By Document 07/30/17 16:14 TM [id number] 07/30/17 16:22 TM 07/30/17 16:14 Wound Center Nurse 2 [Procedure/Treatment] #1 Left julio cluster -Time 16:20 -Correct Patient Yes -Correct Side, Site, Position Yes -Correct Procedure Yes -Procedure Performed Yes -Type of Procedure Debridement -Clinical Debridement Subcutaneous -Post Debridement Size (cm) - Length 1.3 -Post Debridement Size (cm) - Width 1.4 -Post Debridement Size (cm) - Depth 0.2 -Total Square Cm 1.82 -Wound/Ulcer Outcome Not Healed -Ulcer Cleansing Rinsed/ Irrigated with Saline -Foul Odor after Cleansing No -Bioengineered Tissue No -Topical Lidocaine (%) 5 -Bleeding Controlled with Pressure -Treatment Response Procedure Tolerated Well [See Physician Procedure note for Specifics] Pain Scale: 0-10 Numeric [Pain] -Is Patient Pain Free? Yes Psych/Mental Status: Normal Affect, Appropriate Debridement Note Post-Debridement Measurements/Treatment WC - Nurse 2 - General Ulcer CM Notes Start: 07/16/17 15:42 Freq: Status: Active Protocol: Activity Type Activity Date Activity User E-Sign Co-Sign Detail Recorded Client Recorded Date Recorded By Document 07/16/17 15:55 TM [id number] 07/16/17 15:59 TM Document 07/30/17 16:14 TM [id number] 07/30/17 16:22 TM 07/16/17 07/30/17 15:55 16:14 Wound Center Nurse 2 #1 Left julio cluster -Time 15:58 16:20 -Correct Patient Yes Yes -Correct Side, Site, Position Yes Yes -Correct Procedure Yes Yes -Procedure Performed Yes Yes -Type of Procedure Debridement Debridement -Clinical Debridement Subcutaneous Subcutaneous -Post Debridement Size (cm) - Length 1.0 1.3 -Post Debridement Size (cm) - Width 1.3 1.4 -Post Debridement Size (cm) - Depth 0.2 0.2 -Total Square Cm 1.30 1.82 -Wound/Ulcer Outcome Not Healed Not Healed -Ulcer Cleansing Rinsed/ Rinsed/ Irrigated with Irrigated with Saline Saline -Foul Odor after Cleansing No No -Bioengineered Tissue No No -Cetacaine [place] No -Topical Lidocaine (%) 5 5 -Bleeding Controlled with Pressure Pressure -Treatment Response Procedure Procedure Tolerated Well Tolerated Well Pain Scale: 0-10 Numeric Is Patient Pain Free? Yes Yes Wound debrided: left julio cluster Laterality: Left Type of Debridement: Excisional debridement Anesthesia Used: 4% Lidocaine Solution, 5% Lidocaine Gel Depth: Down to and including healthy tissue, in the subcutaneous layer Percentage of wound debrided: 100 Instrument Used: 3mm curette Tissue Removed: yellow slough and devitalized tissue Severity: Fat Layer Exposed Amount of bleeding with debridement: Mild Bleeding Controlled with: Compression and gauze Patient tolerated procedure well Assessment/Plan Active Problems Lymphedema (Chronic) detention current use of anticoagulant (Chronic) 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 lymphedema Plan: Fannie's wounds were evaluated and debrided today. Will have her continue collagen hydrogel and adaptic changed once daily for dressings and treat her edema with tubigrips for compression. Will have her use a washcloth before removing dressings to help alleviate the skin tearing that she experiences. Will have her try adding venous stasis pads. Reviewed vascular testing from [facility] which showed normal JOE's and no evidence of PAD. Venous studies were done today at [facility] and showed that she has incometence of veins in her legs b/l at [facility] and [facility]. This is likely playing a major role in the poor healing she has had. CT with and without contrast was done which did r/o underlying abscess or soft tissue infection. Discussed importance of decreasing edema and ways that this can be acheived. Advised her to elevate her legs when possible and avoid idle standing or sitting. Encouraged her to activate her calf muscles when possible while standing at work. She is scheduled to see Dr. Paz for evaluation for venous ablation this week. Advised to call if increased pain, erythema, edema or fever or chills. F/U 2 weeks.
--- NOTE | 2017-07-30 19:14 | PN.PCM_ITS ---
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 She developed the ulcer after a varicose vein in her julio burst. She had stitches placed to close the area initially but it never healed. She has been applying neosporin, carmex and medi-honey to the wound at different times and nothing has helped. She has been prescribed compression stockings but is unable to tolerate wearing them. 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 She denies fever , chills, increased pain or erythema. Progress of Wound: Fannie is here for follow up of nonhealing wound/ulcer of her left julio. She used collagen hydrogel to the wound this week with adaptic and has been tolerating this well. She underwent CT scan of her left lower leg today to r/o osteomyelitis or abscess which did not show either. She denies fever or chills or increased drainage. She tolerated compression. No odor or fever or chills. - Physical Exam Vital Signs Temp Pulse Resp BP 99.3 F H 81 16 126/75 H 07/30/17 14:40 07/30/17 14:40 07/30/17 14:40 07/30/17 14:40 General: Alert, Oriented x3, Cooperative, No apparent distress HEENT: Atraumatic, Normocephalic Oral: Moist Mucosa Extremities: Edema Skin: Ulcer/ Wound Wound Measurements and Assessment WC - Nurse 1 - General Ulcer Measurement Start: 07/16/17 15:42 Freq: Status: Active Protocol: Activity Type Activity Date Activity User E-Sign Co-Sign Detail Recorded Client Recorded Date Recorded By Document 07/30/17 14:40 MW [id number] 07/30/17 14:48 MW 07/30/17 14:40 Wound Center Nurse 1 [Ulcer Assessment] #1 Left julio cluster -Combined with other wound No -Current Size (cm) - Length 1.2 -Current Size (cm) - Width 1.3 -Current Size (cm) - Depth 0.2 -Total Square Cm 1.56 -Date of Last Picture (Recall this 07/30/17 field) -Photo Taken Yes -Epithelialization None Present -Tunneling No -Undermining/Tunneling No -Circular Undermining No -Exudate Amt Small (1-33%) -Exudate Type Serosanguineous -Wound Margin Distinct, Outline Attached -Granulation Amt None Present (0 %) -Granulation Quality Hyper- granulation -Slough/Fibrin Yes -Necrosis Amt Large (67-100%) -Necrotic Tissue Type Adherent Slough -Structure Exposed N/A -Texture (Kira-wound Skin Appearance) Assessed Localized Edema -Moisture (Kira-wound Skin Appearance No Abnormality ) Assessed -Color (Kira-wound Skin Appearance) Assessed Rubor -Temperature (Kira-wound Skin No Abnormality Appearance) (Pt Warm) -Tenderness on Palpation (Kira-wound No Skin Appearance) -Ulcer Cleansing Rinsed/ Irrigated with Saline -Foul Odor after Cleansing No -Anesthetic Used 5% Lidocaine Gel [Edema Assessment] -Lower Limb Edema Present Yes -Right Calf (cm) 46.5 -Right Ankle (cm) 30.5 WC - Nurse 2 - General Ulcer CM Notes Start: 07/16/17 15:42 Freq: Status: Active Protocol: Activity Type Activity Date Activity User E-Sign Co-Sign Detail Recorded Client Recorded Date Recorded By Document 07/30/17 16:14 TM [id number] 07/30/17 16:22 TM 07/30/17 16:14 Wound Center Nurse 2 [Procedure/Treatment] #1 Left julio cluster -Time 16:20 -Correct Patient Yes -Correct Side, Site, Position Yes -Correct Procedure Yes -Procedure Performed Yes -Type of Procedure Debridement -Clinical Debridement Subcutaneous -Post Debridement Size (cm) - Length 1.3 -Post Debridement Size (cm) - Width 1.4 -Post Debridement Size (cm) - Depth 0.2 -Total Square Cm 1.82 -Wound/Ulcer Outcome Not Healed -Ulcer Cleansing Rinsed/ Irrigated with Saline -Foul Odor after Cleansing No -Bioengineered Tissue No -Topical Lidocaine (%) 5 -Bleeding Controlled with Pressure -Treatment Response Procedure Tolerated Well [See Physician Procedure note for Specifics] Pain Scale: 0-10 Numeric [Pain] -Is Patient Pain Free? Yes Psych/Mental Status: Normal Affect, Appropriate Debridement Note Post-Debridement Measurements/Treatment WC - Nurse 2 - General Ulcer CM Notes Start: 07/16/17 15:42 Freq: Status: Active Protocol: Activity Type Activity Date Activity User E-Sign Co-Sign Detail Recorded Client Recorded Date Recorded By Document 07/16/17 15:55 TM [id number] 07/16/17 15:59 TM Document 07/30/17 16:14 TM [id number] 07/30/17 16:22 TM 07/16/17 07/30/17 15:55 16:14 Wound Center Nurse 2 #1 Left julio cluster -Time 15:58 16:20 -Correct Patient Yes Yes -Correct Side, Site, Position Yes Yes -Correct Procedure Yes Yes -Procedure Performed Yes Yes -Type of Procedure Debridement Debridement -Clinical Debridement Subcutaneous Subcutaneous -Post Debridement Size (cm) - Length 1.0 1.3 -Post Debridement Size (cm) - Width 1.3 1.4 -Post Debridement Size (cm) - Depth 0.2 0.2 -Total Square Cm 1.30 1.82 -Wound/Ulcer Outcome Not Healed Not Healed -Ulcer Cleansing Rinsed/ Rinsed/ Irrigated with Irrigated with Saline Saline -Foul Odor after Cleansing No No -Bioengineered Tissue No No -Cetacaine [place] No -Topical Lidocaine (%) 5 5 -Bleeding Controlled with Pressure Pressure -Treatment Response Procedure Procedure Tolerated Well Tolerated Well Pain Scale: 0-10 Numeric Is Patient Pain Free? Yes Yes Wound debrided: left julio cluster Laterality: Left Type of Debridement: Excisional debridement Anesthesia Used: 4% Lidocaine Solution, 5% Lidocaine Gel Depth: Down to and including healthy tissue, in the subcutaneous layer Percentage of wound debrided: 100 Instrument Used: 3mm curette Tissue Removed: yellow slough and devitalized tissue Severity: Fat Layer Exposed Amount of bleeding with debridement: Mild Bleeding Controlled with: Compression and gauze Patient tolerated procedure well Assessment/Plan Active Problems Lymphedema (Chronic) care home current use of anticoagulant (Chronic) 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 lymphedema Plan: Fannie's wounds were evaluated and debrided today. Will have her continue collagen hydrogel and adaptic changed once daily for dressings and treat her edema with tubigrips for compression. Will have her use a washcloth before removing dressings to help alleviate the skin tearing that she experiences. Will have her try adding venous stasis pads. Reviewed vascular testing from [facility] which showed normal JOE's and no evidence of PAD. Venous studies were done today at [facility] and showed that she has incometence of veins in her legs b/l at [facility] and [facility]. This is likely playing a major role in the poor healing she has had. CT with and without contrast was done which did r/o underlying abscess or soft tissue infection. Discussed importance of decreasing edema and ways that this can be acheived. Advised her to elevate her legs when possible and avoid idle standing or sitting. Encouraged her to activate her calf muscles when possible while standing at work. She is scheduled to see Dr. Paz for evaluation for venous ablation this week. Advised to call if increased pain, erythema, edema or fever or chills. F/U 2 weeks.
== END 2017-08-11 23:59 ==
LOC: WC 14:45
PROVIDERS: Family Provider Family Medicine; PCP Family Medicine; Visit Provider Family Medicine
DX: I83.028 Varicose veins of left lower extremity with ulcer other part of lower leg (principal); L97.822 Non-pressure chronic ulcer of other part of left lower leg with fat layer exposed; D68.59 Other primary thrombophilia; I89.0 Lymphedema, not elsewhere classified; D68.2 Hereditary deficiency of other clotting factors
CPT/HCPCS: 11042; 93970

== ENCOUNTER 2017-09-10 12:30 | Outpatient (RCR) | payer OTHER, SELFPAY ==
[2017-08-12 00:56] VITALS: BP 143/78; PULSE 81; RESP 16; TEMP 37.4; BMI 36.8
[2017-08-13 14:34] VITALS: BP 143/93; PULSE 89; RESP 18; TEMP 37.1; BMI 36.8
--- NOTE | 2017-08-13 18:12 | PCM.WC.PN ---
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 She developed the ulcer after a varicose vein in her julio burst. She had stitches placed to close the area initially but it never healed. She has been applying neosporin, carmex and medi-honey to the wound at different times and nothing has helped. She has been prescribed compression stockings but is unable to tolerate wearing them. 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 She denies fever, chills, increased pain or erythema. Progress of Wound: Fannie is here for follow up of nonhealing wound/ulcer of her left julio. She has been using collagen hydrogel to the wound with adaptic and has been tolerating this well. She has been tolerating tubigrip for compression and venous stasis pad. She denies fever or chills or increased drainage. No odor or fever or chills. - Physical Exam Vital Signs Temp Pulse Resp BP 98.7 F 89 18 143/93 H 08/13/17 14:34 08/13/17 14:34 08/13/17 14:34 08/13/17 14:34 General: Alert, Oriented x3, Cooperative, No apparent distress HEENT: Atraumatic, Normocephalic Oral: Moist Mucosa Abdomen: Obese Extremities: Edema Skin: Ulcer/ Wound Wound Measurements and Assessment WC - Nurse 1 - General Ulcer Measurement Start: 08/13/17 14:34 Freq: Status: Active Protocol: Activity Type Activity Date Activity User E-Sign Co-Sign Detail Recorded Client Recorded Date Recorded By Document 08/13/17 14:34 TN [id number] 08/13/17 14:44 TN 08/13/17 14:34 Wound Center Nurse 1 [Ulcer Assessment] #1 Left julio cluster -Combined with other wound No -Current Size (cm) - Length 1.8 -Current Size (cm) - Width 0.3 -Current Size (cm) - Depth 0.1 -Total Square Cm 0.54 -Photo Taken No -Epithelialization None Present -Tunneling No -Undermining/Tunneling No -Circular Undermining No -Classification - Thickness Full Thickness without Exposed Support Structure -Exudate Amt Small (1-33%) -Exudate Type Serosanguineous -Wound Margin Flat & Intact -Granulation Amt Small (1-33%) -Granulation Quality Red -Slough/Fibrin Yes -Necrotic Tissue Type Adherent Slough -Structure Exposed None/Limited to Skin Breakdown -Texture (Kira-wound Skin Appearance) Assessed Localized Edema -Moisture (Kira-wound Skin Appearance No Abnormality ) Assessed -Color (Kira-wound Skin Appearance) Assessed Hemosiderin Staining -Temperature (Kira-wound Skin No Abnormality Appearance) (Pt Warm) -Tenderness on Palpation (Kira-wound No Skin Appearance) -Ulcer Cleansing Rinsed/ Irrigated with Saline -Foul Odor after Cleansing No -Anesthetic Used 4% Lidocaine Solution 5% Lidocaine Gel [Edema Assessment] -Lower Limb Edema Present No WC - Nurse 2 - General Ulcer CM Notes Start: 08/13/17 14:34 Freq: Status: Active Protocol: Activity Type Activity Date Activity User E-Sign Co-Sign Detail Recorded Client Recorded Date Recorded By Document 08/13/17 15:07 [id number] 08/13/17 15:08 08/13/17 15:07 Wound Center Nurse 2 [Procedure/Treatment] #1 Left julio cluster -Time 15:07 -Correct Patient Yes -Correct Side, Site, Position Yes -Correct Procedure Yes -Procedure Performed Yes -Type of Procedure Debridement -Clinical Debridement Subcutaneous -Post Debridement Size (cm) - Length 1.1 -Post Debridement Size (cm) - Width 1.3 -Post Debridement Size (cm) - Depth 0.2 -Total Square Cm 1.43 -Wound/Ulcer Outcome Not Healed -Ulcer Cleansing Rinsed/ Irrigated with Saline -Foul Odor after Cleansing No -Bioengineered Tissue No -Topical Lidocaine (%) 4 -Bleeding Controlled with Pressure -Treatment Response Procedure Tolerated Well [See Physician Procedure note for Specifics] Pain Scale: 0-10 Numeric [Pain] -Is Patient Pain Free? Yes Psych/Mental Status: Normal Affect, Appropriate Debridement Note Post-Debridement Measurements/Treatment WC - Nurse 2 - General Ulcer CM Notes Start: 08/13/17 14:34 Freq: Status: Active Protocol: Activity Type Activity Date Activity User E-Sign Co-Sign Detail Recorded Client Recorded Date Recorded By Document 08/13/17 15:07 [id number] 08/13/17 15:08 08/13/17 15:07 Wound Center Nurse 2 #1 Left julio cluster -Time 15:07 -Correct Patient Yes -Correct Side, Site, Position Yes -Correct Procedure Yes -Procedure Performed Yes -Type of Procedure Debridement -Clinical Debridement Subcutaneous -Post Debridement Size (cm) - Length 1.1 -Post Debridement Size (cm) - Width 1.3 -Post Debridement Size (cm) - Depth 0.2 -Total Square Cm 1.43 -Wound/Ulcer Outcome Not Healed -Ulcer Cleansing Rinsed/ Irrigated with Saline -Foul Odor after Cleansing No -Bioengineered Tissue No -Topical Lidocaine (%) 4 -Bleeding Controlled with Pressure -Treatment Response Procedure Tolerated Well Pain Scale: 0-10 Numeric Is Patient Pain Free? 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 lymphedema Plan: Fannie's wounds were evaluated and debrided today and are relatively unchanged with conservative management at this point. Discussed possibility of advanced wound healing product to hellp heal her wound such as Epifix which would help to provide a scaffold and amniotic cells to stimulate skin growth. She is agreeable to looking into this option. Will have her continue collagen hydrogel and adaptic changed once daily for dressings and treat her edema with tubigrips for compression. Will have her use a washcloth before removing dressings to help alleviate the skin tearing that she experiences. Will have her continue venous stasis pads. Vascular testing from [facility] which showed normal JOE's and no evidence of PAD. 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 This is likely playing a major role in the poor healing she has had. CT with and without contrast was done which did r/o underlying abscess or soft tissue infection. Discussed importance of decreasing edema and ways that this can be acheived. Advised her to elevate her legs when possible and avoid idle standing or sitting. Encouraged her to activate her calf muscles when possible while standing at work. She saw Dr. Paz for evaluation for venous ablation on 08/11/16 and he recommended waiting until her wound was healed to proceed with any intervention and is having her return in 3 months. Advised to call if increased pain, erythema, edema or fever or chills. F/U 1 week if epifix approved otherwise will have her follow up in 2 weeks.
--- NOTE | 2017-08-13 18:19 | PN.PCM_ITS ---
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 She developed the ulcer after a varicose vein in her julio burst. She had stitches placed to close the area initially but it never healed. She has been applying neosporin, carmex and medi-honey to the wound at different times and nothing has helped. She has been prescribed compression stockings but is unable to tolerate wearing them. 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 She denies fever , chills, increased pain or erythema. Progress of Wound: Fannie is here for follow up of nonhealing wound/ulcer of her left julio. She has been using collagen hydrogel to the wound with adaptic and has been tolerating this well. She has been tolerating tubigrip for compression and venous stasis pad. She denies fever or chills or increased drainage. No odor or fever or chills. - Physical Exam Vital Signs Temp Pulse Resp BP 98.7 F 89 18 143/93 H 08/13/17 14:34 08/13/17 14:34 08/13/17 14:34 08/13/17 14:34 General: Alert, Oriented x3, Cooperative, No apparent distress HEENT: Atraumatic, Normocephalic Oral: Moist Mucosa Abdomen: Obese Extremities: Edema Skin: Ulcer/ Wound Wound Measurements and Assessment WC - Nurse 1 - General Ulcer Measurement Start: 08/13/17 14:34 Freq: Status: Active Protocol: Activity Type Activity Date Activity User E-Sign Co-Sign Detail Recorded Client Recorded Date Recorded By Document 08/13/17 14:34 TN [id number] 08/13/17 14:44 TN 08/13/17 14:34 Wound Center Nurse 1 [Ulcer Assessment] #1 Left julio cluster -Combined with other wound No -Current Size (cm) - Length 1.8 -Current Size (cm) - Width 0.3 -Current Size (cm) - Depth 0.1 -Total Square Cm 0.54 -Photo Taken No -Epithelialization None Present -Tunneling No -Undermining/Tunneling No -Circular Undermining No -Classification - Thickness Full Thickness without Exposed Support Structure -Exudate Amt Small (1-33%) -Exudate Type Serosanguineous -Wound Margin Flat & Intact -Granulation Amt Small (1-33%) -Granulation Quality Red -Slough/Fibrin Yes -Necrotic Tissue Type Adherent Slough -Structure Exposed None/Limited to Skin Breakdown -Texture (Kira-wound Skin Appearance) Assessed Localized Edema -Moisture (Kira-wound Skin Appearance No Abnormality ) Assessed -Color (Kira-wound Skin Appearance) Assessed Hemosiderin Staining -Temperature (Kira-wound Skin No Abnormality Appearance) (Pt Warm) -Tenderness on Palpation (Kira-wound No Skin Appearance) -Ulcer Cleansing Rinsed/ Irrigated with Saline -Foul Odor after Cleansing No -Anesthetic Used 4% Lidocaine Solution 5% Lidocaine Gel [Edema Assessment] -Lower Limb Edema Present No WC - Nurse 2 - General Ulcer CM Notes Start: 08/13/17 14:34 Freq: Status: Active Protocol: Activity Type Activity Date Activity User E-Sign Co-Sign Detail Recorded Client Recorded Date Recorded By Document 08/13/17 15:07 [id number] 08/13/17 15:08 08/13/17 15:07 Wound Center Nurse 2 [Procedure/Treatment] #1 Left julio cluster -Time 15:07 -Correct Patient Yes -Correct Side, Site, Position Yes -Correct Procedure Yes -Procedure Performed Yes -Type of Procedure Debridement -Clinical Debridement Subcutaneous -Post Debridement Size (cm) - Length 1.1 -Post Debridement Size (cm) - Width 1.3 -Post Debridement Size (cm) - Depth 0.2 -Total Square Cm 1.43 -Wound/Ulcer Outcome Not Healed -Ulcer Cleansing Rinsed/ Irrigated with Saline -Foul Odor after Cleansing No -Bioengineered Tissue No -Topical Lidocaine (%) 4 -Bleeding Controlled with Pressure -Treatment Response Procedure Tolerated Well [See Physician Procedure note for Specifics] Pain Scale: 0-10 Numeric [Pain] -Is Patient Pain Free? Yes Psych/Mental Status: Normal Affect, Appropriate Debridement Note Post-Debridement Measurements/Treatment WC - Nurse 2 - General Ulcer CM Notes Start: 08/13/17 14:34 Freq: Status: Active Protocol: Activity Type Activity Date Activity User E-Sign Co-Sign Detail Recorded Client Recorded Date Recorded By Document 08/13/17 15:07 [id number] 08/13/17 15:08 08/13/17 15:07 Wound Center Nurse 2 #1 Left julio cluster -Time 15:07 -Correct Patient Yes -Correct Side, Site, Position Yes -Correct Procedure Yes -Procedure Performed Yes -Type of Procedure Debridement -Clinical Debridement Subcutaneous -Post Debridement Size (cm) - Length 1.1 -Post Debridement Size (cm) - Width 1.3 -Post Debridement Size (cm) - Depth 0.2 -Total Square Cm 1.43 -Wound/Ulcer Outcome Not Healed -Ulcer Cleansing Rinsed/ Irrigated with Saline -Foul Odor after Cleansing No -Bioengineered Tissue No -Topical Lidocaine (%) 4 -Bleeding Controlled with Pressure -Treatment Response Procedure Tolerated Well Pain Scale: 0-10 Numeric Is Patient Pain Free? 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 lymphedema Plan: Fannie's wounds were evaluated and debrided today and are relatively unchanged with conservative management at this point. Discussed possibility of advanced wound healing product to hellp heal her wound such as Epifix which would help to provide a scaffold and amniotic cells to stimulate skin growth. She is agreeable to looking into this option. Will have her continue collagen hydrogel and adaptic changed once daily for dressings and treat her edema with tubigrips for compression. Will have her use a washcloth before removing dressings to help alleviate the skin tearing that she experiences. Will have her continue venous stasis pads. Vascular testing from [facility] which showed normal JOE's and no evidence of PAD. 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 This is likely playing a major role in the poor healing she has had. CT with and without contrast was done which did r/o underlying abscess or soft tissue infection. Discussed importance of decreasing edema and ways that this can be acheived. Advised her to elevate her legs when possible and avoid idle standing or sitting. Encouraged her to activate her calf muscles when possible while standing at work. She saw Dr. Paz for evaluation for venous ablation on 08/11/16 and he recommended waiting until her wound was healed to proceed with any intervention and is having her return in 3 months. Advised to call if increased pain, erythema, edema or fever or chills. F/U 1 week if epifix approved otherwise will have her follow up in 2 weeks.
[2017-08-20 15:00] VITALS: BP 136/68; PULSE 83; RESP 18; TEMP 37.4; BMI 36.8
--- NOTE | 2017-08-20 17:13 | PCM.WC.PN ---
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 She developed the ulcer after a varicose vein in her julio burst. She had stitches placed to close the area initially but it never healed. She has been applying neosporin, carmex and medi-honey to the wound at different times and nothing has helped. She has been prescribed compression stockings but is unable to tolerate wearing them. 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 She denies fever, chills, increased pain or erythema. Progress of Wound: Fannie is here for follow up of nonhealing wound/ulcer of her left julio. She has been using collagen hydrogel to the wound with adaptic and has been tolerating this well but there has not been improvement in her wound. She has been tolerating tubigrip for compression and venous stasis pad. She denies fever or chills or increased drainage. No odor or fever or chills. Epifix was denied by her insurance. - Physical Exam Vital Signs Temp Pulse Resp BP 99.3 F H 83 18 136/68 H 08/20/17 15:00 08/20/17 15:00 08/20/17 15:00 08/20/17 15:00 General: Alert, Oriented x3, Cooperative, No apparent distress HEENT: Atraumatic, Normocephalic Oral: Moist Mucosa Abdomen: Obese Extremities: Edema Wound Measurements and Assessment WC - Nurse 1 - General Ulcer Measurement Start: 08/13/17 14:34 Freq: Status: Active Protocol: Activity Type Activity Date Activity User E-Sign Co-Sign Detail Recorded Client Recorded Date Recorded By Document 08/20/17 15:00 DV [id number] 08/20/17 15:05 DV 08/20/17 15:00 Wound Center Nurse 1 [Ulcer Assessment] #1 Left julio cluster -Combined with other wound No -Current Size (cm) - Length 1.0 -Current Size (cm) - Width 1.3 -Current Size (cm) - Depth 0.2 -Total Square Cm 1.30 -Photo Taken No -Epithelialization None Present -Tunneling No -Undermining/Tunneling No -Exudate Amt Small (1-33%) -Exudate Type Serosanguineous -Wound Margin Distinct, Outline Attached -Granulation Amt None Present (0 %) -Granulation Quality N/A -Slough/Fibrin Yes -Necrosis Amt Small (1-33%) -Necrotic Tissue Type Adherent Slough -Structure Exposed None/Limited to Skin Breakdown -Texture (Kira-wound Skin Appearance) Assessed Scarring -Moisture (Kira-wound Skin Appearance Assessed ) Weeping -Color (Kira-wound Skin Appearance) Assessed Erythema -Temperature (Kira-wound Skin No Abnormality Appearance) (Pt Warm) -Tenderness on Palpation (Kira-wound Yes Skin Appearance) -Ulcer Cleansing Rinsed/ Irrigated with Saline -Foul Odor after Cleansing No -Anesthetic Used 5% Lidocaine Gel WC - Nurse 2 - General Ulcer CM Notes Start: 08/13/17 14:34 Freq: Status: Active Protocol: Activity Type Activity Date Activity User E-Sign Co-Sign Detail Recorded Client Recorded Date Recorded By Document 08/20/17 15:23 [id number] 08/20/17 15:43 08/20/17 15:23 Wound Center Nurse 2 [Procedure/Treatment] -Time 15:40 -Correct Patient Yes -Correct Side, Site, Position Yes -Correct Procedure Yes -Procedure Performed Yes -Type of Procedure Debridement -Clinical Debridement Subcutaneous -Post Debridement Size (cm) - Length 1.1 -Post Debridement Size (cm) - Width 1.3 -Post Debridement Size (cm) - Depth 0.2 -Total Square Cm 1.43 -Wound/Ulcer Outcome Not Healed -Ulcer Cleansing Rinsed/ Irrigated with Saline -Foul Odor after Cleansing No -Bioengineered Tissue No -Topical Lidocaine (%) 5 -Bleeding Controlled with Pressure -Treatment Response Procedure Tolerated Well [See Physician Procedure note for Specifics] Pain Scale: 0-10 Numeric [Pain] -Is Patient Pain Free? Yes Psych/Mental Status: Normal Affect, Appropriate Debridement Note Post-Debridement Measurements/Treatment WC - Nurse 2 - General Ulcer CM Notes Start: 08/13/17 14:34 Freq: Status: Active Protocol: Activity Type Activity Date Activity User E-Sign Co-Sign Detail Recorded Client Recorded Date Recorded By Document 08/13/17 15:07 [id number] 08/13/17 15:08 TM Document 08/20/17 15:23 [id number] 08/20/17 15:43 TM 08/13/17 08/20/17 15:07 15:23 Wound Center Nurse 2 #1 Left julio cluster -Time 15:07 15:40 -Correct Patient Yes Yes -Correct Side, Site, Position Yes Yes -Correct Procedure Yes Yes -Procedure Performed Yes Yes -Type of Procedure Debridement Debridement -Clinical Debridement Subcutaneous Subcutaneous -Post Debridement Size (cm) - Length 1.1 1.1 -Post Debridement Size (cm) - Width 1.3 1.3 -Post Debridement Size (cm) - Depth 0.2 0.2 -Total Square Cm 1.43 1.43 -Wound/Ulcer Outcome Not Healed Not Healed -Ulcer Cleansing Rinsed/ Rinsed/ Irrigated with Irrigated with Saline Saline -Foul Odor after Cleansing No No -Bioengineered Tissue No No -Topical Lidocaine (%) 4 5 -Bleeding Controlled with Pressure Pressure -Treatment Response Procedure Procedure Tolerated Well Tolerated Well Pain Scale: 0-10 Numeric Is Patient Pain Free? 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 lymphedema Plan: Cleo wounds were evaluated and debrided today and are relatively unchanged with conservative management at this point. Epifix was denied by her insurance. Will have her continue collagen hydrogel and adaptic changed once daily for dressings and treat her edema with tubigrips for compression. Will have her use a washcloth before removing dressings to help alleviate the skin tearing that she experiences. Will have her continue venous stasis pads. Vascular testing from [facility] which showed normal JOE's and no evidence of PAD. 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 This is likely playing a major role in the poor healing she has had. CT with and without contrast was done which did r/o underlying abscess or soft tissue infection. Discussed importance of decreasing edema and ways that this can be acheived. Advised her to elevate her legs when possible and avoid idle standing or sitting. Encouraged her to activate her calf muscles when possible while standing at work. She saw Dr. Paz for evaluation for venous ablation on 08/11/16 and he recommended waiting until her wound was healed to proceed with any intervention and is having her return in October. Advised to call if increased pain, erythema, edema or fever or chills. F/U in 2 weeks.
--- NOTE | 2017-08-20 17:19 | PN.PCM_ITS ---
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 She developed the ulcer after a varicose vein in her julio burst. She had stitches placed to close the area initially but it never healed. She has been applying neosporin, carmex and medi-honey to the wound at different times and nothing has helped. She has been prescribed compression stockings but is unable to tolerate wearing them. 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 She denies fever , chills, increased pain or erythema. Progress of Wound: Fannie is here for follow up of nonhealing wound/ulcer of her left julio. She has been using collagen hydrogel to the wound with adaptic and has been tolerating this well but there has not been improvement in her wound. She has been tolerating tubigrip for compression and venous stasis pad. She denies fever or chills or increased drainage. No odor or fever or chills. Epifix was denied by her insurance. - Physical Exam Vital Signs Temp Pulse Resp BP 99.3 F H 83 18 136/68 H 08/20/17 15:00 08/20/17 15:00 08/20/17 15:00 08/20/17 15:00 General: Alert, Oriented x3, Cooperative, No apparent distress HEENT: Atraumatic, Normocephalic Oral: Moist Mucosa Abdomen: Obese Extremities: Edema Wound Measurements and Assessment WC - Nurse 1 - General Ulcer Measurement Start: 08/13/17 14:34 Freq: Status: Active Protocol: Activity Type Activity Date Activity User E-Sign Co-Sign Detail Recorded Client Recorded Date Recorded By Document 08/20/17 15:00 DV [id number] 08/20/17 15:05 DV 08/20/17 15:00 Wound Center Nurse 1 [Ulcer Assessment] #1 Left julio cluster -Combined with other wound No -Current Size (cm) - Length 1.0 -Current Size (cm) - Width 1.3 -Current Size (cm) - Depth 0.2 -Total Square Cm 1.30 -Photo Taken No -Epithelialization None Present -Tunneling No -Undermining/Tunneling No -Exudate Amt Small (1-33%) -Exudate Type Serosanguineous -Wound Margin Distinct, Outline Attached -Granulation Amt None Present (0 %) -Granulation Quality N/A -Slough/Fibrin Yes -Necrosis Amt Small (1-33%) -Necrotic Tissue Type Adherent Slough -Structure Exposed None/Limited to Skin Breakdown -Texture (Kira-wound Skin Appearance) Assessed Scarring -Moisture (Kira-wound Skin Appearance Assessed ) Weeping -Color (Kira-wound Skin Appearance) Assessed Erythema -Temperature (Kira-wound Skin No Abnormality Appearance) (Pt Warm) -Tenderness on Palpation (Kira-wound Yes Skin Appearance) -Ulcer Cleansing Rinsed/ Irrigated with Saline -Foul Odor after Cleansing No -Anesthetic Used 5% Lidocaine Gel WC - Nurse 2 - General Ulcer CM Notes Start: 08/13/17 14:34 Freq: Status: Active Protocol: Activity Type Activity Date Activity User E-Sign Co-Sign Detail Recorded Client Recorded Date Recorded By Document 08/20/17 15:23 [id number] 08/20/17 15:43 08/20/17 15:23 Wound Center Nurse 2 [Procedure/Treatment] -Time 15:40 -Correct Patient Yes -Correct Side, Site, Position Yes -Correct Procedure Yes -Procedure Performed Yes -Type of Procedure Debridement -Clinical Debridement Subcutaneous -Post Debridement Size (cm) - Length 1.1 -Post Debridement Size (cm) - Width 1.3 -Post Debridement Size (cm) - Depth 0.2 -Total Square Cm 1.43 -Wound/Ulcer Outcome Not Healed -Ulcer Cleansing Rinsed/ Irrigated with Saline -Foul Odor after Cleansing No -Bioengineered Tissue No -Topical Lidocaine (%) 5 -Bleeding Controlled with Pressure -Treatment Response Procedure Tolerated Well [See Physician Procedure note for Specifics] Pain Scale: 0-10 Numeric [Pain] -Is Patient Pain Free? Yes Psych/Mental Status: Normal Affect, Appropriate Debridement Note Post-Debridement Measurements/Treatment WC - Nurse 2 - General Ulcer CM Notes Start: 08/13/17 14:34 Freq: Status: Active Protocol: Activity Type Activity Date Activity User E-Sign Co-Sign Detail Recorded Client Recorded Date Recorded By Document 08/13/17 15:07 TM [id number] 08/13/17 15:08 TM Document 08/20/17 15:23 [id number] 08/20/17 15:43 TM 08/13/17 08/20/17 15:07 15:23 Wound Center Nurse 2 #1 Left julio cluster -Time 15:07 15:40 -Correct Patient Yes Yes -Correct Side, Site, Position Yes Yes -Correct Procedure Yes Yes -Procedure Performed Yes Yes -Type of Procedure Debridement Debridement -Clinical Debridement Subcutaneous Subcutaneous -Post Debridement Size (cm) - Length 1.1 1.1 -Post Debridement Size (cm) - Width 1.3 1.3 -Post Debridement Size (cm) - Depth 0.2 0.2 -Total Square Cm 1.43 1.43 -Wound/Ulcer Outcome Not Healed Not Healed -Ulcer Cleansing Rinsed/ Rinsed/ Irrigated with Irrigated with Saline Saline -Foul Odor after Cleansing No No -Bioengineered Tissue No No -Topical Lidocaine (%) 4 5 -Bleeding Controlled with Pressure Pressure -Treatment Response Procedure Procedure Tolerated Well Tolerated Well Pain Scale: 0-10 Numeric Is Patient Pain Free? Yes Yes Wound debrided: left julio cluster Laterality: Left Type of Debridement: Excisional debridement Anesthesia Used: 4% Lidocaine Solution, 5% Lidocaine Gel Depth: Down to and including healthy tissue, in the subcutaneous layer Percentage of wound debrided: 100 Instrument Used: 3mm curette Tissue Removed: yellow slough, devitalized tissue Severity: Fat Layer Exposed Amount of bleeding with debridement: Mild Bleeding Controlled with: Compression and gauze Patient tolerated procedure well Assessment/Plan Active Problems Lymphedema (Chronic) senior care current use of anticoagulant (Chronic) Venous ulcer of left lower extremity with varicose veins (Chronic) Assessment: left julio venous ulcer. lymphedema Plan: Cleo wounds were evaluated and debrided today and are relatively unchanged with conservative management at this point. Epifix was denied by her insurance. Will have her continue collagen hydrogel and adaptic changed once daily for dressings and treat her edema with tubigrips for compression. Will have her use a washcloth before removing dressings to help alleviate the skin tearing that she experiences. Will have her continue venous stasis pads. Vascular testing from [facility] which showed normal JOE's and no evidence of PAD. 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 This is likely playing a major role in the poor healing she has had. CT with and without contrast was done which did r/o underlying abscess or soft tissue infection. Discussed importance of decreasing edema and ways that this can be acheived. Advised her to elevate her legs when possible and avoid idle standing or sitting. Encouraged her to activate her calf muscles when possible while standing at work. She saw Dr. Paz for evaluation for venous ablation on 08/11/16 and he recommended waiting until her wound was healed to proceed with any intervention and is having her return in October. Advised to call if increased pain, erythema, edema or fever or chills. F/U in 2 weeks.
[2017-09-10 13:22] VITALS: BP 139/70; PULSE 68; RESP 18; TEMP 37.3; BMI 36.8
--- NOTE | 2017-09-10 18:56 | PCM.WC.PN ---
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 She developed the ulcer after a varicose vein in her julio burst. She had stitches placed to close the area initially but it never healed. She has been applying neosporin, carmex and medi-honey to the wound at different times and nothing has helped. She has been prescribed compression stockings but is unable to tolerate wearing them. 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 She denies fever, chills, increased pain or erythema. Progress of Wound: Fannie is here for follow up of nonhealing wound/ulcer of her left julio. She has been using collagen hydrogel to the wound with adaptic and has been tolerating this well but there continues to be no improvement in her wound. She has been tolerating tubigrip for compression and venous stasis pad. She denies fever or chills or increased drainage. No odor or fever or chills. Epifix was denied by her insurance. - Physical Exam Vital Signs Temp Pulse Resp BP 99.1 F 68 18 139/70 H 09/10/17 13:22 09/10/17 13:22 09/10/17 13:22 09/10/17 13:22 General: Alert, Oriented x3, Cooperative, No apparent distress HEENT: Atraumatic, Normocephalic Abdomen: Obese Extremities: Edema Skin: Ulcer/ Wound Wound Measurements and Assessment WC - Nurse 1 - General Ulcer Measurement Start: 08/13/17 14:34 Freq: Status: Active Protocol: Activity Type Activity Date Activity User E-Sign Co-Sign Detail Recorded Client Recorded Date Recorded By Document 09/10/17 13:22 TM [id number] 09/10/17 13:34 09/10/17 13:22 Wound Center Nurse 1 [Ulcer Assessment] #1 Left julio cluster -Combined with other wound No -Current Size (cm) - Length 0.5 -Current Size (cm) - Width 0.5 -Current Size (cm) - Depth 0.2 -Total Square Cm 0.25 -Photo Taken No -Epithelialization Small 1-33% -Tunneling No -Undermining/Tunneling No -Circular Undermining No -Classification - Thickness Full Thickness without Exposed Support Structure -Exudate Amt Small (1-33%) -Exudate Type Serosanguineous -Wound Margin Distinct, Outline Attached -Granulation Amt None Present (0 %) -Granulation Quality N/A -Slough/Fibrin Yes -Necrosis Amt Large (67-100%) -Necrotic Tissue Type Adherent Slough -Structure Exposed Fascia Fat Layer Exposed -Texture (Kira-wound Skin Appearance) Localized Edema Scarring -Moisture (Kira-wound Skin Appearance No Abnormality ) -Color (Kira-wound Skin Appearance) Erythema Hemosiderin Staining -Temperature (Kira-wound Skin No Abnormality Appearance) (Pt Warm) -Tenderness on Palpation (Kira-wound No Skin Appearance) -Ulcer Cleansing Rinsed/ Irrigated with Saline -Foul Odor after Cleansing No -Anesthetic Used 5% Lidocaine Gel [Edema Assessment] -Lower Limb Edema Present Yes -Left Calf (cm) 45.5 -Left Ankle (cm) 28.0 - Nurse 2 - General Ulcer CM Notes Start: 08/13/17 14:34 Freq: Status: Active Protocol: Activity Type Activity Date Activity User E-Sign Co-Sign Detail Recorded Client Recorded Date Recorded By Document 09/10/17 13:22 [id number] 09/10/17 13:34 09/10/17 13:22 Wound Center Nurse 2 [Procedure/Treatment] #1 Left julio cluster -Time 13:26 -Correct Patient Yes -Correct Side, Site, Position Yes -Correct Procedure Yes -Procedure Performed Yes -Type of Procedure Debridement -Clinical Debridement Subcutaneous -Post Debridement Size (cm) - Length 0.6 -Post Debridement Size (cm) - Width 0.5 -Post Debridement Size (cm) - Depth 0.2 -Total Square Cm 0.30 -Wound/Ulcer Outcome Not Healed -Ulcer Cleansing Rinsed/ Irrigated with Saline -Foul Odor after Cleansing No -Bioengineered Tissue No -Topical Lidocaine (%) 5 -Bleeding Controlled with Pressure -Treatment Response Procedure Tolerated Well Psych/Mental Status: Normal Affect, Appropriate Debridement Note Post-Debridement Measurements/Treatment WC - Nurse 2 - General Ulcer CM Notes Start: 08/13/17 14:34 Freq: Status: Active Protocol: Activity Type Activity Date Activity User E-Sign Co-Sign Detail Recorded Client Recorded Date Recorded By Document 08/13/17 15:07 TM [id number] 08/13/17 15:08 TM Document 08/20/17 15:23 TM [id number] 08/20/17 15:43 TM Document 09/10/17 13:22 TM [id number] 09/10/17 13:34 TM 08/13/17 08/20/17 09/10/17 15:07 15:23 13:22 Wound Center Nurse 2 #1 Left julio cluster -Time 15:07 15:40 13:26 -Correct Patient Yes Yes Yes -Correct Side, Site, Position Yes Yes Yes -Correct Procedure Yes Yes Yes -Procedure Performed Yes Yes Yes -Type of Procedure Debridement Debridement Debridement -Clinical Debridement Subcutaneous Subcutaneous Subcutaneous -Post Debridement Size (cm) - Length 1.1 1.1 0.6 -Post Debridement Size (cm) - Width 1.3 1.3 0.5 -Post Debridement Size (cm) - Depth 0.2 0.2 0.2 -Total Square Cm 1.43 1.43 0.30 -Wound/Ulcer Outcome Not Healed Not Healed Not Healed -Ulcer Cleansing Rinsed/ Rinsed/ Rinsed/ Irrigated with Irrigated with Irrigated with Saline Saline Saline -Foul Odor after Cleansing No No No -Bioengineered Tissue No No No -Topical Lidocaine (%) 4 5 5 -Bleeding Controlled with Pressure Pressure Pressure -Treatment Response Procedure Procedure Procedure Tolerated Well Tolerated Well Tolerated Well Pain Scale: 0-10 Numeric Is Patient Pain Free? 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 lymphedema Plan: Fannie's wounds were evaluated and debrided today and are unchanged again. Epifix was denied by her insurance. Will have her try treatment with promogran moistened with hydrogel adaptic changed once daily for dressings and treat her edema with tubigrips for compression. Will have her use a washcloth before removing dressings to help alleviate the skin tearing that she experiences. Will have her continue venous stasis pads. Vascular testing from [facility] which showed normal JOE's and no evidence of PAD. 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 This is likely playing a major role in the poor healing she has had. She saw Dr. Paz for evaluation for venous ablation on 08/11/16 and he recommended waiting until her wound was healed to proceed with any intervention and is having her return in October. CT with and without contrast was done which did r/o underlying abscess or soft tissue infection. Discussed importance of decreasing edema and ways that this can be acheived. Advised her to elevate her legs when possible and avoid idle standing or sitting. Encouraged her to activate her calf muscles when possible while standing at work. Advised to call if increased pain, erythema, edema or fever or chills. F/U in 2 weeks.
--- NOTE | 2017-09-10 19:00 | PN.PCM_ITS ---
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 She developed the ulcer after a varicose vein in her julio burst. She had stitches placed to close the area initially but it never healed. She has been applying neosporin, carmex and medi-honey to the wound at different times and nothing has helped. She has been prescribed compression stockings but is unable to tolerate wearing them. 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 She denies fever , chills, increased pain or erythema. Progress of Wound: Fannie is here for follow up of nonhealing wound/ulcer of her left julio. She has been using collagen hydrogel to the wound with adaptic and has been tolerating this well but there continues to be no improvement in her wound. She has been tolerating tubigrip for compression and venous stasis pad. She denies fever or chills or increased drainage. No odor or fever or chills. Epifix was denied by her insurance. - Physical Exam Vital Signs Temp Pulse Resp BP 99.1 F 68 18 139/70 H 09/10/17 13:22 09/10/17 13:22 09/10/17 13:22 09/10/17 13:22 General: Alert, Oriented x3, Cooperative, No apparent distress HEENT: Atraumatic, Normocephalic Abdomen: Obese Extremities: Edema Skin: Ulcer/ Wound Wound Measurements and Assessment WC - Nurse 1 - General Ulcer Measurement Start: 08/13/17 14:34 Freq: Status: Active Protocol: Activity Type Activity Date Activity User E-Sign Co-Sign Detail Recorded Client Recorded Date Recorded By Document 09/10/17 13:22 TM [id number] 09/10/17 13:34 09/10/17 13:22 Wound Center Nurse 1 [Ulcer Assessment] #1 Left julio cluster -Combined with other wound No -Current Size (cm) - Length 0.5 -Current Size (cm) - Width 0.5 -Current Size (cm) - Depth 0.2 -Total Square Cm 0.25 -Photo Taken No -Epithelialization Small 1-33% -Tunneling No -Undermining/Tunneling No -Circular Undermining No -Classification - Thickness Full Thickness without Exposed Support Structure -Exudate Amt Small (1-33%) -Exudate Type Serosanguineous -Wound Margin Distinct, Outline Attached -Granulation Amt None Present (0 %) -Granulation Quality N/A -Slough/Fibrin Yes -Necrosis Amt Large (67-100%) -Necrotic Tissue Type Adherent Slough -Structure Exposed Fascia Fat Layer Exposed -Texture (Kira-wound Skin Appearance) Localized Edema Scarring -Moisture (Kira-wound Skin Appearance No Abnormality ) -Color (Kira-wound Skin Appearance) Erythema Hemosiderin Staining -Temperature (Kira-wound Skin No Abnormality Appearance) (Pt Warm) -Tenderness on Palpation (Kira-wound No Skin Appearance) -Ulcer Cleansing Rinsed/ Irrigated with Saline -Foul Odor after Cleansing No -Anesthetic Used 5% Lidocaine Gel [Edema Assessment] -Lower Limb Edema Present Yes -Left Calf (cm) 45.5 -Left Ankle (cm) 28.0 - Nurse 2 - General Ulcer CM Notes Start: 08/13/17 14:34 Freq: Status: Active Protocol: Activity Type Activity Date Activity User E-Sign Co-Sign Detail Recorded Client Recorded Date Recorded By Document 09/10/17 13:22 [id number] 09/10/17 13:34 09/10/17 13:22 Wound Center Nurse 2 [Procedure/Treatment] #1 Left julio cluster -Time 13:26 -Correct Patient Yes -Correct Side, Site, Position Yes -Correct Procedure Yes -Procedure Performed Yes -Type of Procedure Debridement -Clinical Debridement Subcutaneous -Post Debridement Size (cm) - Length 0.6 -Post Debridement Size (cm) - Width 0.5 -Post Debridement Size (cm) - Depth 0.2 -Total Square Cm 0.30 -Wound/Ulcer Outcome Not Healed -Ulcer Cleansing Rinsed/ Irrigated with Saline -Foul Odor after Cleansing No -Bioengineered Tissue No -Topical Lidocaine (%) 5 -Bleeding Controlled with Pressure -Treatment Response Procedure Tolerated Well Psych/Mental Status: Normal Affect, Appropriate Debridement Note Post-Debridement Measurements/Treatment WC - Nurse 2 - General Ulcer CM Notes Start: 08/13/17 14:34 Freq: Status: Active Protocol: Activity Type Activity Date Activity User E-Sign Co-Sign Detail Recorded Client Recorded Date Recorded By Document 08/13/17 15:07 TM [id number] 08/13/17 15:08 TM Document 08/20/17 15:23 TM [id number] 08/20/17 15:43 TM Document 09/10/17 13:22 TM [id number] 09/10/17 13:34 TM 08/13/17 08/20/17 09/10/17 15:07 15:23 13:22 Wound Center Nurse 2 #1 Left julio cluster -Time 15:07 15:40 13:26 -Correct Patient Yes Yes Yes -Correct Side, Site, Position Yes Yes Yes -Correct Procedure Yes Yes Yes -Procedure Performed Yes Yes Yes -Type of Procedure Debridement Debridement Debridement -Clinical Debridement Subcutaneous Subcutaneous Subcutaneous -Post Debridement Size (cm) - Length 1.1 1.1 0.6 -Post Debridement Size (cm) - Width 1.3 1.3 0.5 -Post Debridement Size (cm) - Depth 0.2 0.2 0.2 -Total Square Cm 1.43 1.43 0.30 -Wound/Ulcer Outcome Not Healed Not Healed Not Healed -Ulcer Cleansing Rinsed/ Rinsed/ Rinsed/ Irrigated with Irrigated with Irrigated with Saline Saline Saline -Foul Odor after Cleansing No No No -Bioengineered Tissue No No No -Topical Lidocaine (%) 4 5 5 -Bleeding Controlled with Pressure Pressure Pressure -Treatment Response Procedure Procedure Procedure Tolerated Well Tolerated Well Tolerated Well Pain Scale: 0-10 Numeric Is Patient Pain Free? Yes Yes Wound debrided: left julio cluster Laterality: Left Type of Debridement: Excisional debridement Anesthesia Used: 4% Lidocaine Solution, 5% Lidocaine Gel Depth: Down to and including healthy tissue, in the subcutaneous layer Percentage of wound debrided: 100 Instrument Used: 3mm curette Tissue Removed: yellow slough, devitalized tissue Severity: Fat Layer Exposed Amount of bleeding with debridement: Mild Bleeding Controlled with: Compression and gauze Patient tolerated procedure well Assessment/Plan Active Problems Lymphedema (Chronic) senior living current use of anticoagulant (Chronic) Venous ulcer of left lower extremity with varicose veins (Chronic) Assessment: left julio venous ulcer. lymphedema Plan: Fannie's wounds were evaluated and debrided today and are unchanged again. Epifix was denied by her insurance. Will have her try treatment with promogran moistened with hydrogel adaptic changed once daily for dressings and treat her edema with tubigrips for compression. Will have her use a washcloth before removing dressings to help alleviate the skin tearing that she experiences. Will have her continue venous stasis pads. Vascular testing from [facility] which showed normal JOE's and no evidence of PAD. 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 This is likely playing a major role in the poor healing she has had. She saw Dr. Paz for evaluation for venous ablation on 08/11/16 and he recommended waiting until her wound was healed to proceed with any intervention and is having her return in October. CT with and without contrast was done which did r/o underlying abscess or soft tissue infection. Discussed importance of decreasing edema and ways that this can be acheived. Advised her to elevate her legs when possible and avoid idle standing or sitting. Encouraged her to activate her calf muscles when possible while standing at work. Advised to call if increased pain, erythema, edema or fever or chills. F/U in 2 weeks.
== END 2017-09-11 23:59 ==
LOC: WC 12:30
PROVIDERS: Family Provider Family Medicine; PCP Family Medicine; Visit Provider Family Medicine
DX: I83.028 Varicose veins of left lower extremity with ulcer other part of lower leg (principal); L97.822 Non-pressure chronic ulcer of other part of left lower leg with fat layer exposed; I89.0 Lymphedema, not elsewhere classified; Z79.01 Long term (current) use of anticoagulants
CPT/HCPCS: 11042

== ENCOUNTER 2017-10-06 14:30 | Outpatient (RCR) | payer OTHER, SELFPAY ==
[2017-09-12 00:47] VITALS: BP 143/78; PULSE 68; RESP 18; TEMP 37.3; BMI 36.8
[2017-09-15 15:11] VITALS: BP 135/72; PULSE 77; RESP 16; TEMP 36.1; BMI 36.8
--- NOTE | 2017-09-15 22:19 | PCM.WC.PN ---
(1) Ulcer of left lower extremity with fat layer exposed Status: Acute Current Visit: Yes Code(s): L97.922 - Non-pressure chronic ulcer of unspecified part of left lower leg with fat layer exposed (2) Lymphedema Status: Chronic Current Visit: Yes Code(s): I89.0 - Lymphedema, not elsewhere classified (3) Venous ulcer of left lower extremity with varicose veins Status: Chronic Current Visit: Yes Code(s): I83.029 - Varicose veins of left lower extremity with ulcer of unspecified site Type of Wound Date of Service: 09/17/17 Chief Complaint: wound/ulcer on left julio History of Wound: Fannie is here today for evaluation and treatment of a left julio ulcer that she has been present for over 1 year. She developed the ulcer after a varicose vein in her julio burst. She has been prescribed compression stockings but is unable to tolerate wearing them. 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 She denies fever, chills, increased pain or redness. Progress of Wound: stable - Physical Exam Vital Signs Temp Pulse Resp BP 97 F L 77 16 135/72 H 09/15/17 15:11 09/15/17 15:11 09/15/17 15:11 09/15/17 15:11 General: Alert, Oriented x3, Cooperative HEENT: Atraumatic Extremities: No cyanosis, Capillary Refill Less than 3 Seconds, No Calf Tenderness - negative khadijah and alfaro bilateral, Diminished Peripheral Pulses, Edema Skin: Ulcer/ Wound - left leg no purulence, no erythema, no odor, no necrosis, no infection, no maceration noted. the skin is atrophic kira wound. Wound Measurements and Assessment WC - Nurse 1 - General Ulcer Measurement Start: 09/15/17 15:11 Freq: Status: Active Protocol: Activity Type Activity Date Activity User E-Sign Co-Sign Detail Recorded Client Recorded Date Recorded By Document 09/15/17 15:11 DL [id number] 09/15/17 15:19 DL 09/15/17 15:11 Wound Center Nurse 1 [Ulcer Assessment] #1 Left julio cluster -Current Size (cm) - Length 1.2 -Current Size (cm) - Width 2 -Current Size (cm) - Depth 0.2 -Total Square Cm 2.4 -Photo Taken No -Exudate Amt Small (1-33%) -Exudate Type Serosanguineous -Wound Margin Thickened -Granulation Amt Small (1-33%) -Granulation Quality [place] -Necrosis Amt Large (67-100%) -Necrotic Tissue Type Adherent Slough -Structure Exposed N/A -Texture (Kira-wound Skin Appearance) Scarring -Moisture (Kira-wound Skin Appearance No Abnormality ) -Color (Kira-wound Skin Appearance) Hemosiderin Staining -Temperature (Kira-wound Skin No Abnormality Appearance) (Pt Warm) -Tenderness on Palpation (Kira-wound No Skin Appearance) -Ulcer Cleansing Rinsed/ Irrigated with Saline -Foul Odor after Cleansing No -Anesthetic Used 4% Lidocaine Solution [Edema Assessment] -Left Calf (cm) 43.5 -Left Ankle (cm) 25 WC - Nurse 2 - General Ulcer CM Notes Start: 09/15/17 15:11 Freq: Status: Active Protocol: Activity Type Activity Date Activity User E-Sign Co-Sign Detail Recorded Client Recorded Date Recorded By Document 09/15/17 15:53 [id number] 09/15/17 15:55 09/15/17 15:53 Wound Center Nurse 2 [Procedure/Treatment] #1 Left julio cluster -Time 15:54 -Correct Patient Yes -Correct Side, Site, Position Yes -Correct Procedure Yes -Procedure Performed Yes -Type of Procedure Debridement -Clinical Debridement Subcutaneous -Post Debridement Size (cm) - Length 1.3 -Post Debridement Size (cm) - Width 2.0 -Post Debridement Size (cm) - Depth 0.1 -Total Square Cm 2.60 -Wound/Ulcer Outcome Not Healed -Ulcer Cleansing Rinsed/ Irrigated with Saline -Foul Odor after Cleansing No -Bioengineered Tissue No -Bleeding Controlled with Pressure -Treatment Response Procedure Tolerated Well [See Physician Procedure note for Specifics] Pain Scale: 0-10 Numeric [Pain] -Is Patient Pain Free? Yes Musculoskeletal: No Tenderness to Palpation of Joints or Extremities, Muscle Wasting, - - compartments of the lower extremity remain soft Neurological: Sensory exam intact to light touch and pain Psych/Mental Status: Normal Affect, Appropriate Debridement Note Post-Debridement Measurements/Treatment - Nurse 2 - General Ulcer CM Notes Start: 09/15/17 15:11 Freq: Status: Active Protocol: Activity Type Activity Date Activity User E-Sign Co-Sign Detail Recorded Client Recorded Date Recorded By Document 09/15/17 15:53 JF [id number] 09/15/17 15:55 JF 09/15/17 15:53 Wound Center Nurse 2 #1 Left julio cluster -Time 15:54 -Correct Patient Yes -Correct Side, Site, Position Yes -Correct Procedure Yes -Procedure Performed Yes -Type of Procedure Debridement -Clinical Debridement Subcutaneous -Post Debridement Size (cm) - Length 1.3 -Post Debridement Size (cm) - Width 2.0 -Post Debridement Size (cm) - Depth 0.1 -Total Square Cm 2.60 -Wound/Ulcer Outcome Not Healed -Ulcer Cleansing Rinsed/ Irrigated with Saline -Foul Odor after Cleansing No -Bioengineered Tissue No -Bleeding Controlled with Pressure -Treatment Response Procedure Tolerated Well Pain Scale: 0-10 Numeric Is Patient Pain Free? Yes Wound debrided: leg Laterality: Left Type of Debridement: Excisional debridement Anesthesia Used: 4% Lidocaine Solution Depth: in the subcutaneous layer Percentage of wound debrided: 100 Instrument Used: #15 blade Tissue Removed: fibrous, devitalized subcutaneous, biofilm, slough Severity: Fat Layer Exposed Amount of bleeding with debridement: Mild Bleeding Controlled with: Pressure Patient tolerated procedure well Assessment/Plan Active Problems Ulcer of left lower extremity with fat layer exposed (Acute) Lymphedema (Chronic) Venous ulcer of left lower extremity with varicose veins (Chronic) Assessment: left julio venous ulcer. lymphedema Plan: Fannie's wounds were evaluated and debrided today and are unchanged again. Ulcer debridement was debrided as noted in the clinical panel. Epifix was denied by her insurance. To continue promogran moistened with hydrogel adaptic changed once daily for dressings and treat her edema with tubigrips for compression. Will have her use a washcloth before removing dressings to help alleviate the skin tearing that she experiences. Order for circaid compression wraps were provided today. Vascular testing from [facility] [place] which showed normal JOE's and no evidence of PAD were noted. 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 This is likely playing a major role in the poor healing she has had. She saw Dr. Pza for evaluation for venous ablation on 08/11/16 and he recommended waiting until her wound was healed. I further discussed importance of decreasing edema and ways that this can be acheived. To maintain a well balance diet to optimize healing and wayne nutritional supplementation was recommended. She was reassured no signs of infection were noted. I answered her questions. To return to clinic in one week or call sooner if questions or concerns.
[2017-09-22 15:28] VITALS: BP 141/86; PULSE 86; RESP 16; TEMP 37.4; BMI 36.8
--- NOTE | 2017-09-22 17:24 | PN.PCM_ITS ---
(1) Ulcer of left lower extremity with fat layer exposed Status: Chronic Current Visit: Yes Code(s): L97.922 - Non-pressure chronic ulcer of unspecified part of left lower leg with fat layer exposed (2) Lymphedema Status: Chronic Current Visit: Yes Code(s): I89.0 - Lymphedema, not elsewhere classified (3) Venous ulcer of left lower extremity with varicose veins Status: Chronic Current Visit: Yes Code(s): I83.029 - Varicose veins of left lower extremity with ulcer of unspecified site Type of Wound Date of Service: 09/22/17 Chief Complaint: wound/ulcer on left julio History of Wound: Fannie is here today for evaluation and treatment of a left julio ulcer that she has been present for over 1 year. She developed the ulcer after a varicose vein in her julio burst. She has been prescribed compression stockings but is unable to tolerate wearing them. 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 She denies fever, chills, increased pain or redness. Progress of Wound: Improving - Physical Exam Vital Signs Temp Pulse Resp BP 99.3 F H 86 16 141/86 H 09/22/17 15:28 09/22/17 15:28 09/22/17 15:28 09/22/17 15:28 General: Alert, Oriented x3, Cooperative Extremities: No cyanosis, Capillary Refill Less than 3 Seconds, No Calf Tenderness - Negative [place] and [place]erm[place] left, Diminished Peripheral Pulses, Edema , Peripheral Pulses Normal - Palpable DP left Skin: Ulcer/ Wound - No purulence, no erythema, streaking, no necrosis, no acute infection left lower extremity. The atrophic skin is noted peripherally. There is reduction in wound size and peripheral epithelialization is noted. Improved granulation tissue the base is also noted Wound Measurements and Assessment WC - Nurse 1 - General Ulcer Measurement Start: 09/15/17 15:11 Freq: Status: Active Protocol: Activity Type Activity Date Activity User E-Sign Co-Sign Detail Recorded Client Recorded Date Recorded By Document 09/22/17 15:28 MW [id number] 09/22/17 15:30 MW 09/22/17 15:28 Wound Center Nurse 1 [Ulcer Assessment] #1 Left julio cluster -Combined with other wound No -Current Size (cm) - Length 1.3 -Current Size (cm) - Width 1.5 -Current Size (cm) - Depth 0.1 -Total Square Cm 1.95 -Photo Taken No -Epithelialization None Present -Tunneling No -Undermining/Tunneling No -Circular Undermining No -Exudate Amt Small (1-33%) -Exudate Type Serosanguineous -Wound Margin Flat & Intact -Granulation Amt None Present (0 %) -Granulation Quality N/A -Slough/Fibrin Yes -Necrosis Amt Large (67-100%) -Necrotic Tissue Type Adherent Slough -Structure Exposed N/A -Texture (Kira-wound Skin Appearance) Assessed Localized Edema Scarring -Moisture (Kira-wound Skin Appearance No Abnormality ) Assessed -Color (Kira-wound Skin Appearance) Assessed Hemosiderin Staining -Temperature (Kira-wound Skin No Abnormality Appearance) (Pt Warm) -Tenderness on Palpation (Kira-wound Yes Skin Appearance) -Ulcer Cleansing Rinsed/ Irrigated with Saline -Foul Odor after Cleansing No -Anesthetic Used 5% Lidocaine Gel [Edema Assessment] -Lower Limb Edema Present Yes -Left Calf (cm) 47.0 -Left Ankle (cm) 27.2 WC - Nurse 2 - General Ulcer CM Notes Start: 09/15/17 15:11 Freq: Status: Active Protocol: Activity Type Activity Date Activity User E-Sign Co-Sign Detail Recorded Client Recorded Date Recorded By Document 09/22/17 15:44 [id number] 09/22/17 15:45 09/22/17 15:44 Wound Center Nurse 2 [Procedure/Treatment] #1 Left julio cluster -Time 15:44 -Correct Patient Yes -Correct Side, Site, Position Yes -Correct Procedure Yes -Procedure Performed Yes -Type of Procedure Debridement -Clinical Debridement Subcutaneous -Post Debridement Size (cm) - Length 1.4 -Post Debridement Size (cm) - Width 1.6 -Post Debridement Size (cm) - Depth 0.1 -Total Square Cm 2.24 -Wound/Ulcer Outcome Not Healed -Ulcer Cleansing Rinsed/ Irrigated with Saline -Foul Odor after Cleansing No -Bioengineered Tissue No -Topical Lidocaine (%) 5 -Bleeding Controlled with Pressure -Treatment Response Procedure Tolerated Well [See Physician Procedure note for Specifics] Pain Scale: 0-10 Numeric [Pain] -Is Patient Pain Free? Yes Musculoskeletal: No Tenderness to Palpation of Joints or Extremities, Muscle Wasting Neurological: Sensory exam intact to light touch and pain Psych/Mental Status: Normal Affect, Appropriate Debridement Note Post-Debridement Measurements/Treatment WC - Nurse 2 - General Ulcer CM Notes Start: 09/15/17 15:11 Freq: Status: Active Protocol: Activity Type Activity Date Activity User E-Sign Co-Sign Detail Recorded Client Recorded Date Recorded By Document 09/15/17 15:53 [id number] 09/15/17 15:55 Document 09/22/17 15:44 TM [id number] 09/22/17 15:45 TM 09/15/17 09/22/17 15:53 15:44 Wound Center Nurse 2 #1 Left julio cluster -Time 15:54 15:44 -Correct Patient Yes Yes -Correct Side, Site, Position Yes Yes -Correct Procedure Yes Yes -Procedure Performed Yes Yes -Type of Procedure Debridement Debridement -Clinical Debridement Subcutaneous Subcutaneous -Post Debridement Size (cm) - Length 1.3 1.4 -Post Debridement Size (cm) - Width 2.0 1.6 -Post Debridement Size (cm) - Depth 0.1 0.1 -Total Square Cm 2.60 2.24 -Wound/Ulcer Outcome Not Healed Not Healed -Ulcer Cleansing Rinsed/ Rinsed/ Irrigated with Irrigated with Saline Saline -Foul Odor after Cleansing No No -Bioengineered Tissue No No -Topical Lidocaine (%) 5 -Bleeding Controlled with Pressure Pressure -Treatment Response Procedure Procedure Tolerated Well Tolerated Well Pain Scale: 0-10 Numeric Is Patient Pain Free? Yes Yes Wound debrided: leg Laterality: Left Type of Debridement: Excisional debridement Anesthesia Used: 4% Lidocaine Solution Depth: in the subcutaneous layer Percentage of wound debrided: 100 Instrument Used: #15 blade Tissue Removed: fibrous, devitalized subcutaneous, biofilm, slough Severity: Fat Layer Exposed Amount of bleeding with debridement: Mild Bleeding Controlled with: Pressure Patient tolerated procedure well Assessment/Plan Active Problems Ulcer of left lower extremity with fat layer exposed (Chronic) Lymphedema (Chronic) Venous ulcer of left lower extremity with varicose veins (Chronic) Assessment: left julio venous ulcer. lymphedema. Delayed healing. Chronic leg edema. Malnutrition suspected Plan: Cleo wounds were evaluated and debrided today. I reviewed and discussed her care plan and treatment recommendations. Ulcer debridement was debrided as noted in the clinical panel. To continue promogran moistened with hydrogel adaptic changed once daily for dressings and treat her edema with tubigrips for compression. Will have her use a washcloth before removing dressings to help alleviate the skin tearing that she experiences. Order for circaid compression wraps were provided today. Vascular testing from [facility] which showed normal JOE's and no evidence of PAD were noted. 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 This is likely playing a major role in the poor healing she has had. She saw Dr. Paz for evaluation for venous ablation on 08/11/16 and he recommended waiting until her wound was healed. I further discussed importance of decreasing edema and ways that this can be acheived. To maintain a well balance diet to optimize healing and wayne nutritional supplementation was recommended. She was reassured no signs of infection were noted. I answered her questions. To return to clinic in 2 weeks or call sooner if questions or concerns.
[2017-10-06 14:48] VITALS: BP 158/70; PULSE 76; RESP 16; TEMP 36.6; BMI 36.8
--- NOTE | 2017-10-06 15:46 | PN.PCM_ITS ---
(1) Ulcer of left lower extremity with fat layer exposed Status: Chronic Current Visit: Yes Code(s): L97.922 - Non-pressure chronic ulcer of unspecified part of left lower leg with fat layer exposed (2) Lymphedema Status: Chronic Current Visit: Yes Code(s): I89.0 - Lymphedema, not elsewhere classified (3) Venous ulcer of left lower extremity with varicose veins Status: Chronic Current Visit: Yes Code(s): I83.029 - Varicose veins of left lower extremity with ulcer of unspecified site Type of Wound Date of Service: 10/08/17 Chief Complaint: wound/ulcer on left julio History of Wound: Fannie is here today for follow up treatment of a left julio ulcer. She denies fever, chills, increased redness. She does report increased discomfort and some inflammation and swelling at the wound site. She denies loss of appetite, nausea or vomiting. Progress of Wound: Mild infection progression, worsening status - Physical Exam Vital Signs Temp Pulse Resp BP 97.8 F 76 16 158/70 H 10/06/17 14:48 10/06/17 14:48 10/06/17 14:48 10/06/17 14:48 General: Alert, Oriented x3, Cooperative Extremities: No cyanosis, Capillary Refill Less than 3 Seconds, No Calf Tenderness - Negative Ju[place] and Lerma sign bilateral, Diminished Peripheral Pulses, Edema - Bilateral lower extremities Skin: Ulcer/ Wound - No purulence, no odor, no necrosis, no streaking to the left leg. The peripheral skin is atrophic. The wound and direct periwound does have some edema and inflammation noted and there is increased pain patient. Is no bogginess or fluctuance on palpation to the wound site. The compartments of the lower extremity remain soft Wound Measurements and Assessment WC - Nurse 1 - General Ulcer Measurement Start: 09/15/17 15:11 Freq: Status: Active Protocol: Activity Type Activity Date Activity User E-Sign Co-Sign Detail Recorded Client Recorded Date Recorded By Document 10/06/17 14:48 MW [id number] 10/06/17 14:51 MW 10/06/17 14:48 Wound Center Nurse 1 [Ulcer Assessment] #1 Left julio cluster -Combined with other wound No -Current Size (cm) - Length 1.4 -Current Size (cm) - Width 1.6 -Current Size (cm) - Depth 0.2 -Total Square Cm 2.24 -Date of Last Picture (Recall this 10/06/17 field) -Photo Taken Yes -Epithelialization None Present -Tunneling No -Undermining/Tunneling No -Circular Undermining No -Exudate Amt Small (1-33%) -Exudate Type Yellow/Green -Wound Margin Distinct, Outline Attached -Granulation Amt None Present (0 %) -Granulation Quality N/A -Slough/Fibrin Yes -Necrosis Amt Small (1-33%) -Necrotic Tissue Type Adherent Slough -Structure Exposed N/A -Texture (Kira-wound Skin Appearance) Assessed Localized Edema Scarring -Moisture (Kira-wound Skin Appearance No Abnormality ) Assessed -Color (Kira-wound Skin Appearance) No Abnormality Assessed -Temperature (Kira-wound Skin No Abnormality Appearance) (Pt Warm) -Tenderness on Palpation (Kira-wound Yes Skin Appearance) -Ulcer Cleansing Rinsed/ Irrigated with Saline -Foul Odor after Cleansing No -Anesthetic Used 4% Lidocaine Solution 5% Lidocaine Gel [Edema Assessment] -Lower Limb Edema Present Yes -Left Calf (cm) 46.8 -Left Ankle (cm) 26.6 WC - Nurse 2 - General Ulcer CM Notes Start: 09/15/17 15:11 Freq: Status: Active Protocol: Activity Type Activity Date Activity User E-Sign Co-Sign Detail Recorded Client Recorded Date Recorded By Document 10/06/17 15:43 KELLEY [id number] 10/06/17 15:43 KELLEY 10/06/17 15:43 Wound Center Nurse 2 [Procedure/Treatment] #1 Left julio cluster -Time 15:43 -Correct Patient Yes -Correct Side, Site, Position Yes -Correct Procedure Yes -Procedure Performed Yes -Type of Procedure Debridement -Clinical Debridement Subcutaneous -Post Debridement Size (cm) - Length 1.5 -Post Debridement Size (cm) - Width 1.6 -Post Debridement Size (cm) - Depth 0.2 -Total Square Cm 2.40 -Wound/Ulcer Outcome Not Healed -Ulcer Cleansing Rinsed/ Irrigated with Saline -Foul Odor after Cleansing No -Bioengineered Tissue No -Bleeding Controlled with Pressure -Treatment Response Procedure Tolerated Well [See Physician Procedure note for Specifics] Pain Scale: 0-10 Numeric [Pain] -Is Patient Pain Free? Yes Musculoskeletal: No Tenderness to Palpation of Joints or Extremities, Muscle Wasting Neurological: Sensory exam intact to light touch and pain Psych/Mental Status: Normal Affect, Appropriate Debridement Note Post-Debridement Measurements/Treatment WC - Nurse 2 - General Ulcer CM Notes Start: 09/15/17 15:11 Freq: Status: Active Protocol: Activity Type Activity Date Activity User E-Sign Co-Sign Detail Recorded Client Recorded Date Recorded By Document 09/15/17 15:53 [id number] 09/15/17 15:55 Document 09/22/17 15:44 [id number] 09/22/17 15:45 Document 10/06/17 15:43 [id number] 10/06/17 15:43 09/15/17 09/22/17 10/06/17 15:53 15:44 15:43 Wound Center Nurse 2 #1 Left julio cluster -Time 15:54 15:44 15:43 -Correct Patient Yes Yes Yes -Correct Side, Site, Position Yes Yes Yes -Correct Procedure Yes Yes Yes -Procedure Performed Yes Yes Yes -Type of Procedure Debridement Debridement Debridement -Clinical Debridement Subcutaneous Subcutaneous Subcutaneous -Post Debridement Size (cm) - Length 1.3 1.4 1.5 -Post Debridement Size (cm) - Width 2.0 1.6 1.6 -Post Debridement Size (cm) - Depth 0.1 0.1 0.2 -Total Square Cm 2.60 2.24 2.40 -Wound/Ulcer Outcome Not Healed Not Healed Not Healed -Ulcer Cleansing Rinsed/ Rinsed/ Rinsed/ Irrigated with Irrigated with Irrigated with Saline Saline Saline -Foul Odor after Cleansing No No No -Bioengineered Tissue No No No -Topical Lidocaine (%) 5 -Bleeding Controlled with Pressure Pressure Pressure -Treatment Response Procedure Procedure Procedure Tolerated Well Tolerated Well Tolerated Well Pain Scale: 0-10 Numeric Is Patient Pain Free? Yes Yes Yes Wound debrided: leg Laterality: Left Type of Debridement: Excisional debridement Anesthesia Used: 5% Lidocaine Gel Depth: in the subcutaneous layer Percentage of wound debrided: 50 Instrument Used: #15 blade Tissue Removed: fibrous, devitalized subcutaneous, biofilm, slough Severity: Fat Layer Exposed Amount of bleeding with debridement: Mild Bleeding Controlled with: Pressure Patient tolerated procedure well Assessment/Plan Active Problems Ulcer of left lower extremity with fat layer exposed (Chronic) Lymphedema (Chronic) Venous ulcer of left lower extremity with varicose veins (Chronic) Assessment: left julio venous ulcer. lymphedema. Delayed healing. Chronic leg edema. Malnutrition suspected Plan: Fannie's wounds were evaluated and debrided today. I reviewed and discussed her care plan and treatment recommendations. Ulcer debridement was debrided as noted in the clinical panel; 50%. To continue hydrogel adaptic changed once daily for dressings and treat her edema with tubigrips for compression. Order for circaid compression wraps was provided at a previous visit and this is still pending. Vascular testing from [facility] which showed normal JOE's and no evidence of PAD were noted. 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 This is likely playing a major role in the poor healing she has had. She saw Dr. Paz for evaluation for venous ablation on 08/11/16 and he recommended waiting until her wound was healed. I further discussed importance of decreasing edema and ways that this can be acheived. To maintain a well balance diet to optimize healing and wayne nutritional supplementation was recommended. She is having increased pain and inflammation of the wound site and I am concerned of a mild starting Augmentin and a prescription was provided today. A culture was also taken and the results are pending. I answered her questions. To return to clinic in 1 week or call sooner if questions or concerns.
== END 2017-10-11 23:59 ==
LOC: WC 14:30
PROVIDERS: Family Provider Family Medicine; PCP Family Medicine; Visit Provider Podiatrist
DX: I83.028 Varicose veins of left lower extremity with ulcer other part of lower leg (principal); L97.822 Non-pressure chronic ulcer of other part of left lower leg with fat layer exposed; I89.0 Lymphedema, not elsewhere classified; R60.0 Localized edema; L03.116 Cellulitis of left lower limb
CPT/HCPCS: 11042; 87070; 87075; 87205

== ENCOUNTER 2017-11-10 13:30 | Outpatient (RCR) | payer OTHER, SELFPAY ==
[2017-10-12 00:40] VITALS: BP 143/78; PULSE 76; RESP 16; TEMP 36.6; BMI 36.8
[2017-10-13 15:35] VITALS: BMI 36.8
--- NOTE | 2017-10-13 17:37 | PN.PCM_ITS ---
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 Current Visit: Yes Code(s): Z79.01 - care home (current) use of anticoagulants (5) Factor V deficiency Status: Chronic Current Visit: Yes Code(s): D68.2 - Hereditary deficiency of other clotting factors (6) Protein S deficiency Status: Chronic Current Visit: Yes Code(s): D68.59 - Other primary thrombophilia (7) Venous ulcer of left lower extremity with varicose veins Status: Chronic Current Visit: Yes Code(s): I83.029 - Varicose veins of left lower extremity with ulcer of unspecified site Type of Wound Date of Service: 10/14/17 Chief Complaint: wound/ulcer on left julio History of Wound: Fannie is here today for follow up treatment of a left julio ulcer. She denies fever, chills, increased redness. She does report increased discomfort and some inflammation and swelling at the wound site. She denies loss of appetite, nausea or vomiting. She is not completing her CircAid compression order yet here to today and nursing staff did assist her with ordering us via phone this afternoon. She has been taking her oral antibiotics as advised. Progress of Wound: stable - Physical Exam Vital Signs Temp Pulse Resp BP 97.8 F 76 16 143/78 H 10/12/17 00:40 10/12/17 00:40 10/12/17 00:40 10/12/17 00:40 General: Alert, Oriented x3, Cooperative Extremities: No cyanosis, Capillary Refill Less than 3 Seconds, No Calf Tenderness, Diminished Peripheral Pulses, Edema Skin: Ulcer/ Wound - No purulence, no erythema, streaking, odor noted today. The wound bed is granular and slightly devitalized with slough visualized. Her adjacent skin is atrophic. She does have some hyperpigmentation secondary to chronic swelling Wound Measurements and Assessment WC - Nurse 1 - General Ulcer Measurement Start: 10/13/17 15:35 Freq: Status: Active Protocol: Activity Type Activity Date Activity User E-Sign Co-Sign Detail Recorded Client Recorded Date Recorded By Document 10/13/17 15:35 RUI [id number] 10/13/17 15:40 DV 10/13/17 15:35 Wound Center Nurse 1 [Ulcer Assessment] #1 Left julio cluster -Combined with other wound No -Current Size (cm) - Length 1.4 -Current Size (cm) - Width 1.5 -Current Size (cm) - Depth 0.2 -Total Square Cm 2.10 -Photo Taken No -Epithelialization None Present -Tunneling No -Undermining/Tunneling No -Classification - Thickness Full Thickness without Exposed Support Structure -Exudate Amt Small (1-33%) -Exudate Type Serosanguineous -Wound Margin Distinct, Outline Attached -Granulation Amt None Present (0 %) -Granulation Quality N/A -Slough/Fibrin Yes -Necrosis Amt Large (67-100%) -Necrotic Tissue Type Adherent Slough -Structure Exposed None/Limited to Skin Breakdown -Texture (Kira-wound Skin Appearance) Assessed Localized Edema Scarring -Moisture (Kira-wound Skin Appearance Assessed ) Weeping -Color (Kira-wound Skin Appearance) Assessed Hemosiderin Staining -Temperature (Kira-wound Skin No Abnormality Appearance) (Pt Warm) -Ulcer Cleansing Rinsed/ Irrigated with Saline -Foul Odor after Cleansing No -Anesthetic Used 4% Lidocaine Solution 5% Lidocaine Gel [Edema Assessment] -Lower Limb Edema Present Yes -Left Calf (cm) 45.0 -Left Ankle (cm) 28 - Nurse 2 - General Ulcer CM Notes Start: 10/13/17 15:35 Freq: Status: Active Protocol: Activity Type Activity Date Activity User E-Sign Co-Sign Detail Recorded Client Recorded Date Recorded By Document 10/13/17 16:12 KELLEY [id number] 10/13/17 16:13 KELLEY 10/13/17 16:12 Wound Center Nurse 2 [Procedure/Treatment] #1 Left julio cluster -Time 16:13 -Correct Patient Yes -Correct Side, Site, Position Yes -Correct Procedure Yes -Procedure Performed Yes -Type of Procedure Debridement -Clinical Debridement Subcutaneous -Post Debridement Size (cm) - Length 2 -Post Debridement Size (cm) - Width 2 -Post Debridement Size (cm) - Depth 0.2 -Total Square Cm 4 -Wound/Ulcer Outcome Not Healed -Ulcer Cleansing Rinsed/ Irrigated with Saline -Foul Odor after Cleansing No -Bioengineered Tissue No -Bleeding Controlled with Pressure -Treatment Response Procedure Tolerated Well [See Physician Procedure note for Specifics] Pain Scale: 0-10 Numeric [Pain] -Is Patient Pain Free? Yes Musculoskeletal: No Tenderness to Palpation of Joints or Extremities, Muscle Wasting, Tenderness - Pain with one manipulation leg Neurological: Sensory exam intact to light touch and pain Psych/Mental Status: Normal Affect, Appropriate Debridement Note Post-Debridement Measurements/Treatment WC - Nurse 2 - General Ulcer CM Notes Start: 10/13/17 15:35 Freq: Status: Active Protocol: Activity Type Activity Date Activity User E-Sign Co-Sign Detail Recorded Client Recorded Date Recorded By Document 10/13/17 16:12 KELLEY [id number] 10/13/17 16:13 KELLEY 10/13/17 16:12 Wound Center Nurse 2 #1 Left julio cluster -Time 16:13 -Correct Patient Yes -Correct Side, Site, Position Yes -Correct Procedure Yes -Procedure Performed Yes -Type of Procedure Debridement -Clinical Debridement Subcutaneous -Post Debridement Size (cm) - Length 2 -Post Debridement Size (cm) - Width 2 -Post Debridement Size (cm) - Depth 0.2 -Total Square Cm 4 -Wound/Ulcer Outcome Not Healed -Ulcer Cleansing Rinsed/ Irrigated with Saline -Foul Odor after Cleansing No -Bioengineered Tissue No -Bleeding Controlled with Pressure -Treatment Response Procedure Tolerated Well Pain Scale: 0-10 Numeric Is Patient Pain Free? Yes Wound debrided: leg Laterality: Left Type of Debridement: Excisional debridement Anesthesia Used: 5% Lidocaine Gel Depth: in the subcutaneous layer Percentage of wound debrided: 100 Instrument Used: #15 blade Tissue Removed: fibrous, devitalized subcutaneous, biofilm, slough Severity: Fat Layer Exposed Amount of bleeding with debridement: Mild Bleeding Controlled with: Pressure, Compression and gauze Patient tolerated procedure well Assessment/Plan Active Problems Ulcer of left lower extremity with fat layer exposed (Chronic) Lymphedema (Chronic) H/O deep venous thrombosis (Chronic) care home current use of anticoagulant (Chronic) 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 lymphedema. Delayed healing. Chronic leg edema. Malnutrition suspected Plan: Fannie's wounds were evaluated and debrided today. I reviewed and discussed her care plan and treatment recommendations. Ulcer debridement was debrided as noted in the clinical panel; 50%. To continue hydrogel adaptic changed once daily for dressings and treat her edema with tubigrips for compression. Order for circaid compression wraps was provided at a previous visit and chief complaint and ordering process via phone this afternoon with the help of the nursing staff. Vascular testing from [facility] which showed normal JOE's and no evidence of PAD were noted. Venous studies were done at [facility] and showed that she has incompetence of veins in her legs b/l at [facility] and [facility] and LSV. This is likely playing a major role in the poor healing she has had. She saw Dr. Paz for evaluation for venous ablation on 08/11/16 and he recommended waiting until her wound was healed. I further discussed importance of decreasing edema and ways that this can be acheived. To maintain a well balance diet to optimize healing and wayne nutritional supplementation was recommended. She was having increased pain and inflammation of the wound site and she is taking Augmentin antibiotics as prescribed. A culture was also taken and no growth was identified. to elevate legs at rest and avoid sitting or standing. I recommend application of advanced wound care provided with growth factors to optimize healing a preauthorization for the effects was already initiated by different provider earlier in her care plan and this was denied. I recommend she will be notified upon preauthorization. She has demonstrated significant delays in healing and this is medically necessary. We discussed the indications, plan application, and anticipate healing healing management. I answered her questions. To return to clinic in 1 week or call sooner if questions or concerns; a wound care center provider will be covering.
[2017-10-22 13:52] VITALS: BP 162/99; PULSE 89; RESP 16; TEMP 37; BMI 36.8
--- NOTE | 2017-10-22 15:44 | PCM.WC.PN ---
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 Current Visit: Yes Code(s): Z79.01 - half-way (current) use of anticoagulants (5) Factor V deficiency Status: Chronic Current Visit: Yes Code(s): D68.2 - Hereditary deficiency of other clotting factors (6) Protein S deficiency Status: Chronic Current Visit: Yes Code(s): D68.59 - Other primary thrombophilia (7) Venous ulcer of left lower extremity with varicose veins Status: Chronic Current Visit: Yes Code(s): I83.029 - Varicose veins of left lower extremity with ulcer of unspecified site (8) Skin cancer Status: Acute Current Visit: Yes Code(s): C44.90 - Unspecified malignant neoplasm of skin, unspecified (9) Cellulitis Status: Acute Current Visit: Yes Qualifiers: Site of cellulitis of extremity: lower extremity Laterality: left Code(s): L03.90 - Cellulitis, unspecified (10) Cellulitis of leg, left Status: Acute Current Visit: Yes Code(s): L03.116 - Cellulitis of left lower limb Type of Wound Date of Service: 10/24/17 Chief Complaint: wound/ulcer on left julio with increased pain History of Wound: Fannie is here today for follow up treatment of a left julio ulcer. She denies fever, chills, increased redness. She does report increased discomfort and some inflammation and swelling at the wound site. She denies loss of appetite, nausea or vomiting. She obtained a CircAid compression wrap and was not able to tolerate it for more than a half hour; she relates that she followed the written instructions on proper application. She has been taking her oral antibiotics as advised. She has continued leg swelling. Progress of Wound: Worse - Physical Exam Vital Signs Temp Pulse Resp BP 98.6 F 89 16 162/99 H 10/22/17 13:52 10/22/17 13:52 10/22/17 13:52 10/22/17 13:52 General: Alert, Oriented x3, Cooperative Extremities: No cyanosis, Capillary Refill Less than 3 Seconds, No Calf Tenderness - Negative Ju[place] and Lerma sign bilateral, Diminished Peripheral Pulses Skin: Ulcer/ Wound - No purulence on expression or odor. There is periwound edema and erythema. The wound bed is fibrous. The peripheral skin is hairless and atrophic. Wound Measurements and Assessment WC - Nurse 1 - General Ulcer Measurement Start: 10/13/17 15:35 Freq: Status: Active Protocol: Activity Type Activity Date Activity User E-Sign Co-Sign Detail Recorded Client Recorded Date Recorded By Document 10/22/17 13:52 MW [id number] 10/22/17 13:54 MW 10/22/17 13:52 Wound Center Nurse 1 [Ulcer Assessment] #1 Left julio cluster -Combined with other wound No -Current Size (cm) - Length 1.5 -Current Size (cm) - Width 2.0 -Current Size (cm) - Depth 0.2 -Total Square Cm 3.00 -Photo Taken No -Epithelialization None Present -Tunneling No -Undermining/Tunneling No -Circular Undermining No -Exudate Amt Small (1-33%) -Exudate Type Serosanguineous -Wound Margin Distinct, Outline Attached -Granulation Amt None Present (0 %) -Granulation Quality N/A -Slough/Fibrin Yes -Necrosis Amt Large (67-100%) -Necrotic Tissue Type Adherent Slough -Structure Exposed N/A -Texture (Kira-wound Skin Appearance) Assessed Localized Edema Scarring -Moisture (Kira-wound Skin Appearance No Abnormality ) Assessed -Color (Kira-wound Skin Appearance) Assessed Erythema -Temperature (Kira-wound Skin No Abnormality Appearance) (Pt Warm) -Tenderness on Palpation (Kira-wound No Skin Appearance) -Ulcer Cleansing Rinsed/ Irrigated with Saline -Foul Odor after Cleansing No -Anesthetic Used 4% Lidocaine Solution 5% Lidocaine Gel [Edema Assessment] -Lower Limb Edema Present Yes -Left Calf (cm) 48.0 -Left Ankle (cm) 30.1 Musculoskeletal: No Tenderness to Palpation of Joints or Extremities, Muscle Wasting, Tenderness - Pain with wound manipulation left leg Neurological: Sensory exam intact to light touch and pain Psych/Mental Status: Normal Affect, Appropriate Debridement Note Post-Debridement Measurements/Treatment WC - Nurse 2 - General Ulcer CM Notes Start: 10/13/17 15:35 Freq: Status: Active Protocol: Activity Type Activity Date Activity User E-Sign Co-Sign Detail Recorded Client Recorded Date Recorded By Document 10/13/17 16:12 KELLEY [id number] 10/13/17 16:13 KELLEY 10/13/17 16:12 Wound Center Nurse 2 #1 Left julio cluster -Time 16:13 -Correct Patient Yes -Correct Side, Site, Position Yes -Correct Procedure Yes -Procedure Performed Yes -Type of Procedure Debridement -Clinical Debridement Subcutaneous -Post Debridement Size (cm) - Length 2 -Post Debridement Size (cm) - Width 2 -Post Debridement Size (cm) - Depth 0.2 -Total Square Cm 4 -Wound/Ulcer Outcome Not Healed -Ulcer Cleansing Rinsed/ Irrigated with Saline -Foul Odor after Cleansing No -Bioengineered Tissue No -Bleeding Controlled with Pressure -Treatment Response Procedure Tolerated Well Pain Scale: 0-10 Numeric Is Patient Pain Free? Yes Wound debrided: leg Laterality: Left Type of Debridement: Excisional debridement Anesthesia Used: 5% Lidocaine Gel Depth: in the subcutaneous layer Percentage of wound debrided: 50 Instrument Used: #15 blade Tissue Removed: fibrous, devitalized subcutaneous, biofilm, slough Severity: Fat Layer Exposed Amount of bleeding with debridement: Mild Bleeding Controlled with: Pressure Patient tolerated procedure well Assessment/Plan Active Problems Skin cancer (Acute) Cellulitis (Acute) Cellulitis of leg, left (Acute) Cellulitis of left leg (Acute) Ulcer of left lower extremity with fat layer exposed (Chronic) Lymphedema (Chronic) H/O deep venous thrombosis (Chronic) 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 Cellulitis. lymphedema. Delayed healing. Chronic leg edema. Malnutrition suspected Plan: Cleo wounds were evaluated and debrided today as noted in the clinical panel. I reviewed and discussed her care plan and treatment recommendations. Ulcer debridement was debrided as noted in the clinical panel; 50%. To continue hydrogel with collagen and Adaptic changed once daily for dressings and treat her edema with CircAid compression wraps. I advised her to retry the application and ease into the full recommended. I advised her to put these on first thing in the morning before her legs begin to swell. To avoid idle sitting or standing. To elevate limbs at rest. I advised her to bring this CircAid compression wraps with her to her next wound center visit for additional demonstration. Vascular testing from [facility] which showed normal JOE's and no evidence of PAD were noted. Venous studies were done at [facility] and showed that she has incompetence of veins in her legs b/l at GSV and SFJ and LSV. This is likely playing a major role in the poor healing she has had. She saw Dr. Paz for evaluation for venous ablation on 08/11/16 and he recommended waiting until her wound was healed. I further discussed importance of decreasing edema and ways that this can be acheived. To maintain a well balance diet to optimize healing and wayne nutritional supplementation was recommended. She was having increased pain and inflammation of the wound site and she is taking Augmentin antibiotics as prescribed; to continue. A punch biopsy was taken in 2 sites in the wound bed. Part of this was sent to pathology to rule out skin malignancy or other dermatological condition. He had a punch biopsy was sent to microbiology as a deeper wound culture to evaluate for microorganism growth again. I also recommend she obtain the left leg x-ray and an order was provided today. I recommend application of advanced wound care provided with growth factors to optimize healing a preauthorization for the effects was already initiated by different provider earlier in her care plan and this was denied for epi fix. I recommend she will be notified upon preauthorization of [employer] in which the order was already placed. She has demonstrated significant delays in healing and this is medically necessary. We discussed the indications, plan application, and anticipate healing healing management. I answered her questions. To return to clinic in 1 week or call sooner if questions or concerns.
[2017-10-22 22:03] LABS: M R Staph aureus DNA By PCR Negative (Negative); Probe Check PASS; Specimen Processing Control PASS; Staph aureus DNA By PCR NEGATIVE (Negative)
--- NOTE | 2017-10-23 | UL_PTH ---
PATIENT: DANIEL MICHAEL LOC: U#:[id number] AGE/SX: 52/F ROOM: RE11/10/[address]: Dr. Domonique Liang DO : 1965 BED: DIS: 11/11/2017 SPEC #: [id number] RECD: 10/25/17 10:38 STATUS: COREY RENUKA #: [id number] FRANCO: 10/23/17 00:[address]: Danette Knott DEPT: SURGICAL PATHOLOGY RECD BY: Zaire Hdez ENTERED: 10/25/17 10:39 SP TYPE: ULCER OTHR DR: MD Dr. Domonique Holland DO Tissues: ULCER Procedures: Special Stain Group I Surgery Specimen Level IV AFB Stain (control) GMS Stain (control) HEADER OPERATION: Punch biopsy left leg PRE-OP DIAGNOSIS: Nonhealing left leg ulcer TISSUE SUBMITTED: Left leg MICROSCOPIC DIAGNOSIS Left leg ulcer, punch biopsy: A piece of fibroconnective tissue with acute and chronic inflammation and abscess formation. Special stains for acid fast bacilli and fungi are negative for organisms; matched controls are appropriate. Negative for malignancy. SAMMIE:finn 10/26/17 MICROSCOPIC DESCRIPTION Slides are reviewed. No epidermis is noted in the submitted specimen. GROSS DESCRIPTION Received in fixative is one container labeled with the patient's name and designated skin ulcer. The specimen consists of a punch biopsy of johnson-white skin measuring 0.3 x 0.2 x 0.1 cm. The specimen is totally submitted in one cassette. / SAMMIE:finn 10/25/17 TC:2 CPT: 17941, [id number] x2
--- NOTE | 2017-10-23 11:25 | RAD_ITS ---
STUDY: X-RAY - LEFT TIBIA AND FIBULA REASON FOR EXAM: Female, 52 years old. Nonhealing soft tissue wound. TECHNIQUE: 2 view(s) of the tibia and fibula were obtained. COMPARISON: None. FINDINGS: Normal visualized tibia. Normal visualized fibula. There is no demonstrated acute fracture. There is non-specific soft tissue swelling. RAD/Tibia & Fibula 2 Views IMPRESSION: Normal tibia and fibula. Electronically Signed: Surya Holloway MD at 19:19 EDT , Service support ,
[2017-10-23 12:18] LABS: ALB/GLOB Ratio 1.1 RATIO (0.9-2.4); AST(SGOT) 15 U/L (15-37); Alanine Aminotransfer ALT/SGPT 23 U/L (13-56); Albumin, Serum 3.7 g/dL (3.2-5.0); Alkaline Phosphatase 55 U/L (45-117); Anion Gap 9 (5-15); BUN 14 mg/dL (7-18); BUN/Creat Ratio 20.9 RATIO (10-20); CRP 4.69 mg/L (0.0-3.0); Calcium,Total 8.4 mg/dL (8.5-10.1); Chloride 108 mmol/L (98-107); Creatinine, Serum 0.67 mg/dL (0.55-1.02); EST Glomerular Filtration Rate 99 mL/min (>60); Est Glom Filt Rate - Afr Amer 120 mL/min (>60); Globulin 3.4 g/dL (2.2-4.2); Glucose 129 mg/dL (74-106); Potassium 4.2 mmol/L (3.5-5.1); Protein, Total 7.1 g/dL (6.4-8.2); Sodium Level 139 mmol/L (136-145)
[2017-10-23 12:32] LABS: Absolute Lymphocyte Count 2.52 X10^3/ul (0.83-4.51); Absolute Neutrophil Count 3.4 X10^3/uL (2.0-7.7); Basophil# 0.03 X10^3/uL; Basophil% 0.4 % (0-1); Eosinophils% 5.7 % (0-5); Hematocrit 40.6 % (37-47); Hemoglobin 13.5 g/dl (12.0-15.0); Lymphocyte # 2.52 X10^3/ul (4.0); Lymphocyte % 36.1 % (19-41); Mean Corp Hgb Conc 33.3 g/gl (32-36); Mean Corpuscular Hgb 31.1 pg (27.0-32.0); Mean Corpuscular Volume 93.5 fL (81-99); Mean Platelet Vol. 10.2 fl (6.2-12.0); Monocyte# 0.61 X10^3/uL; Monocyte% 8.7 % (0-10); Neutrophil # 3.42 X10^3/uL (2.7-7.7); Platelet Count 241 K/mm3 (150-450); RBC Distribution Width CV 13.1 % (11.6-14.6); RBC Distribution Width SD 43.4 fl (35.1-43.9); Red Blood Count 4.34 M/mm3 (4.2-5.4)
[2017-10-23 12:36] LABS: POSITIVE COUNT NO; POSITIVE DIFFERENTIAL NO; POSITIVE MORPHOLOGY NO
[2017-10-23 12:37] LABS: Erythrocyte Sedimentation Rate 22 mm/hr (0-30)
[2017-10-27 14:17] VITALS: BP 155/77; PULSE 76; RESP 20; TEMP 37.2; BMI 36.8
--- NOTE | 2017-10-27 15:16 | PCM.WC.PN ---
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 Current Visit: Yes Code(s): Z79.01 - longterm (current) use of anticoagulants (5) Factor V deficiency Status: Chronic Current Visit: Yes Code(s): D68.2 - Hereditary deficiency of other clotting factors (6) Protein S deficiency Status: Chronic Current Visit: Yes Code(s): D68.59 - Other primary thrombophilia (7) Venous ulcer of left lower extremity with varicose veins Status: Chronic Current Visit: Yes Code(s): I83.029 - Varicose veins of left lower extremity with ulcer of unspecified site (8) Skin cancer Status: Acute Current Visit: Yes Code(s): C44.90 - Unspecified malignant neoplasm of skin, unspecified (9) Cellulitis of leg, left Status: Acute Current Visit: Yes Code(s): L03.116 - Cellulitis of left lower limb (10) Pseudomonas infection Status: Acute Current Visit: Yes Code(s): B96.5 - Pseudomonas (aeruginosa) (mallei) (pseudomallei) as the cause of diseases classified elsewhere Type of Wound Date of Service: 10/28/17 Chief Complaint: wound/ulcer on left julio with increased pain History of Wound: Fannie is here today for follow up treatment of a left julio ulcer. She denies fever, chills, increased redness. She does report increased discomfort and some inflammation and swelling at the wound site. She denies loss of appetite, nausea or vomiting. She has retried application of CircAid compression wrap. She has been taking her oral antibiotics as advised; cipro. She asks about her xray and culture results today. She has continued leg swelling. Progress of Wound: stable - Physical Exam Vital Signs Temp Pulse Resp BP 98.9 F 76 20 H 155/77 H 10/27/17 14:17 05/16/18 14:17 10/27/17 14:17 10/27/17 14:17 General: Alert, Oriented x3, Cooperative HEENT: Atraumatic Extremities: No cyanosis, Capillary Refill Less than 3 Seconds, No Calf Tenderness, Diminished Peripheral Pulses, Edema Skin: Ulcer/ Wound - Periwound edema and hyperpigmentation. The wound bed is fibrous and devitalized. There is no deep bone or fascia exposure. There is no purulence, odor, erythema noted. The peripheral skin is atrophic. Wound Measurements and Assessment WC - Nurse 1 - General Ulcer Measurement Start: 10/13/17 15:35 Freq: Status: Active Protocol: Activity Type Activity Date Activity User E-Sign Co-Sign Detail Recorded Client Recorded Date Recorded By Document 10/27/17 14:17 DL [id number] 10/27/17 14:24 DL 10/27/17 14:17 Wound Center Nurse 1 [Ulcer Assessment] #1 Left julio cluster -Current Size (cm) - Length 2.1 -Current Size (cm) - Width 2.1 -Current Size (cm) - Depth 0.3 -Total Square Cm 4.41 -Photo Taken No -Exudate Amt Medium (34-66%) -Exudate Type Serosanguineous -Wound Margin Distinct, Outline Attached -Granulation Amt Small (1-33%) -Granulation Quality [place] -Necrosis Amt Large (67-100%) -Necrotic Tissue Type Adherent Slough -Structure Exposed N/A -Texture (Kira-wound Skin Appearance) Localized Edema -Moisture (Kira-wound Skin Appearance No Abnormality ) -Color (Kira-wound Skin Appearance) Erythema -Temperature (Kira-wound Skin Hot Appearance) -Tenderness on Palpation (Kira-wound Yes Skin Appearance) -Ulcer Cleansing Rinsed/ Irrigated with Saline -Foul Odor after Cleansing No -Anesthetic Used 4% Lidocaine Solution [Edema Assessment] -Point of Measurement (cm from the 44 distal point) -Point of measurement (cm from the 26 medial instep) WC - Nurse 2 - General Ulcer CM Notes Start: 10/13/17 15:35 Freq: Status: Active Protocol: Activity Type Activity Date Activity User E-Sign Co-Sign Detail Recorded Client Recorded Date Recorded By Document 10/27/17 14:36 JF [id number] 10/27/17 14:50 JF 10/27/17 14:36 Wound Center Nurse 2 [Procedure/Treatment] #1 Left julio cluster -Time 14:50 -Correct Patient Yes -Correct Side, Site, Position Yes -Correct Procedure Yes -Procedure Performed Yes -Type of Procedure Debridement -Clinical Debridement Subcutaneous -Post Debridement Size (cm) - Length 2.2 -Post Debridement Size (cm) - Width 2.1 -Post Debridement Size (cm) - Depth 0.2 -Total Square Cm 4.62 -Wound/Ulcer Outcome Not Healed -Ulcer Cleansing Rinsed/ Irrigated with Saline -Foul Odor after Cleansing No -Bioengineered Tissue No -Bleeding Controlled with Pressure -Treatment Response Procedure Tolerated Well [See Physician Procedure note for Specifics] Pain Scale: 0-10 Numeric [Pain] -Is Patient Pain Free? Yes Musculoskeletal: No Tenderness to Palpation of Joints or Extremities, Muscle Wasting Neurological: Sensory exam intact to light touch and pain Psych/Mental Status: Normal Affect, Appropriate Debridement Note Post-Debridement Measurements/Treatment WC - Nurse 2 - General Ulcer CM Notes Start: 10/13/17 15:35 Freq: Status: Active Protocol: Activity Type Activity Date Activity User E-Sign Co-Sign Detail Recorded Client Recorded Date Recorded By Document 10/13/17 16:12 [id number] 10/13/17 16:13 Document 10/27/17 14:36 [id number] 10/27/17 14:50 10/13/17 10/27/17 16:12 14:36 Wound Center Nurse 2 #1 Left julio cluster -Time 16:13 14:50 -Correct Patient Yes Yes -Correct Side, Site, Position Yes Yes -Correct Procedure Yes Yes -Procedure Performed Yes Yes -Type of Procedure Debridement Debridement -Clinical Debridement Subcutaneous Subcutaneous -Post Debridement Size (cm) - Length 2 2.2 -Post Debridement Size (cm) - Width 2 2.1 -Post Debridement Size (cm) - Depth 0.2 0.2 -Total Square Cm 4 4.62 -Wound/Ulcer Outcome Not Healed Not Healed -Ulcer Cleansing Rinsed/ Rinsed/ Irrigated with Irrigated with Saline Saline -Foul Odor after Cleansing No No -Bioengineered Tissue No No -Bleeding Controlled with Pressure Pressure -Treatment Response Procedure Procedure Tolerated Well Tolerated Well Pain Scale: 0-10 Numeric Is Patient Pain Free? Yes Yes Wound debrided: leg Laterality: Left Type of Debridement: Excisional debridement Anesthesia Used: 5% Lidocaine Gel Depth: in the subcutaneous layer Percentage of wound debrided: 100 Instrument Used: 5mm curette Tissue Removed: fibrous, devitalized subcutaneous, biofilm, slough Severity: Fat Layer Exposed Amount of bleeding with debridement: Mild Bleeding Controlled with: Pressure Patient tolerated procedure well Assessment/Plan Clinical Impression(s) from Imaging Studies Tibia/Fibula X-Ray 10/23/17 11:25 IMPRESSION: Normal tibia and fibula. 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 Cellulitis. lymphedema. Delayed healing. Chronic leg edema. Malnutrition suspected Plan: Fannie'moreno wounds were evaluated and debrided today as noted in the clinical panel. I reviewed and discussed her care plan and treatment recommendations. Ulcer debridement was debrided as noted in the clinical panel; 50%. To continue hydrogel with collagen and Adaptic changed once daily for dressings and treat her edema with CircAid compression wraps. She is retried application will continue. I advised her to put these on first thing in the morning before her legs begin to swell. To avoid idle sitting or standing. To elevate limbs at rest. Vascular testing from [facility] which showed normal JOE's and no evidence of PAD were noted. Venous studies were done at [facility] and showed that she has incompetence of veins in her legs b/l at [facility] and [facility] and [facility]. This is likely playing a major role in the poor healing she has had. She saw Dr. Paz for evaluation for venous ablation on 08/11/16 and he recommended waiting until her wound was healed. I further discussed importance of decreasing edema and ways that this can be acheived. To maintain a well balance diet to optimize healing and wayne nutritional supplementation was recommended. She was having increased pain and inflammation of the wound site and she is taking Augmentin antibiotics as prescribed; to continue. Her microbiology report is reviewed with Pseudomonas and ciprofloxacin was added to her antibiotic regimen. Due to the wound deterioration and delays in healing and we will try to get her scheduled with this physician next time she is at the wound center. The pathology assessment demonstrates chronic ulceration without malignancy or other rare abnormality. Her leg x-rays were negative for any fractures, soft tissue emphysema, foreign body, or underlying bone abnormalities adjacent to the wound. I recommend application of advanced wound care provided with growth factors to optimize healing a preauthorization for the effects was already initiated by different provider earlier in her care plan and this was denied for epi fix. I recommend she will be notified upon preauthorization of Regranex in which the order was already placed. This is still pending. She has demonstrated significant delays in healing and this is medically necessary. We discussed the indications, plan application, and anticipate healing healing management. I answered her questions. To return to clinic in 1 week or call sooner if questions or concerns.
[2017-11-03 12:59] VITALS: BP 149/86; PULSE 79; RESP 20; TEMP 36.8; BMI 36.8
--- NOTE | 2017-11-03 13:46 | PN.PCM_ITS ---
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 Current Visit: Yes Code(s): Z79.01 - halfway (current) use of anticoagulants (5) Factor V deficiency Status: Chronic Current Visit: Yes Code(s): D68.2 - Hereditary deficiency of other clotting factors (6) Protein S deficiency Status: Chronic Current Visit: Yes Code(s): D68.59 - Other primary thrombophilia (7) Venous ulcer of left lower extremity with varicose veins Status: Chronic Current Visit: Yes Code(s): I83.029 - Varicose veins of left lower extremity with ulcer of unspecified site (8) Skin cancer Status: Acute Current Visit: Yes Code(s): C44.90 - Unspecified malignant neoplasm of skin, unspecified (9) Cellulitis of leg, left Status: Resolved Current Visit: Yes Code(s): L03.116 - Cellulitis of left lower limb (10) Pseudomonas infection Status: Acute Current Visit: Yes Code(s): B96.5 - Pseudomonas (aeruginosa) ( mallei) (pseudomallei) as the cause of diseases classified elsewhere Type of Wound Date of Service: 11/03/17 Chief Complaint: wound/ulcer on left juloi with increased pain History of Wound: Fannie is here today for follow up treatment of a left julio ulcer. She denies fever, chills, increased redness. She has continued wound pain. She has been taking ciprofloxacin as prescribed and uses antimicrobial soap to cleanse the biofilm and contaminated wound bed daily. She denies loss of appetite, nausea or vomiting. She has retried application of CircAid compression wrap and is still not able to tolerate this. She saw vascular surgeon, this past week who is recommending venous procedure intervention prior to wound closure and insurance preauthorization has been initiated. She also saw infectious disease today as well for recommendations on her chronic bacterial biofilm contamination issue. Progress of Wound: stable - Physical Exam Vital Signs Temp Pulse Resp BP 98.2 F 79 20 H 149/86 H 11/03/17 12:59 11/03/17 12:59 11/03/17 12:59 11/03/17 12:59 General: Alert, Oriented x3, Cooperative HEENT: Atraumatic Extremities: No cyanosis, Capillary Refill Less than 3 Seconds, No Calf Tenderness - Negative [place] left, Diminished Peripheral Pulses, Tenderness - Pain with wound manipulation and periwound manipulation along the anterior compartment Skin: Ulcer/ Wound - No purulence, odor, streaking, no distinct erythema necrosis noted to left leg. There is periwound hyperpigmentation and edema noted. There is decreased devitalized and fibrous tissue in the wound bed. There is no odor. The skin on the left lower extremity is atrophic and there is scant hair. Wound Measurements and Assessment WC - Nurse 1 - General Ulcer Measurement Start: 10/13/17 15:35 Freq: Status: Active Protocol: Activity Type Activity Date Activity User E-Sign Co-Sign Detail Recorded Client Recorded Date Recorded By Document 11/03/17 12:59 DL [id number] 11/03/17 13:03 DL 11/03/17 12:59 Wound Center Nurse 1 [Ulcer Assessment] #1 Left julio cluster -Current Size (cm) - Length 2 -Current Size (cm) - Width 2.5 -Current Size (cm) - Depth 0.5 -Total Square Cm 5.0 -Photo Taken No -Exudate Amt Medium (34-66%) -Exudate Type Serosanguineous -Wound Margin Distinct, Outline Attached -Granulation Amt Small (1-33%) -Granulation Quality [place] -Necrosis Amt Large (67-100%) -Necrotic Tissue Type Adherent Slough -Structure Exposed N/A -Texture (Kira-wound Skin Appearance) Scarring -Moisture (Kira-wound Skin Appearance No Abnormality ) -Color (Kira-wound Skin Appearance) Hemosiderin Staining Rubor -Temperature (Kira-wound Skin No Abnormality Appearance) (Pt Warm) -Tenderness on Palpation (Kira-wound No Skin Appearance) -Ulcer Cleansing Rinsed/ Irrigated with Saline -Foul Odor after Cleansing No -Anesthetic Used 4% Lidocaine Solution [Edema Assessment] -Left Calf (cm) 44 -Left Ankle (cm) 27 - Nurse 2 - General Ulcer CM Notes Start: 10/13/17 15:35 Freq: Status: Active Protocol: Activity Type Activity Date Activity User E-Sign Co-Sign Detail Recorded Client Recorded Date Recorded By Document 11/03/17 13:30 [id number] 11/03/17 13:31 11/03/17 13:30 Wound Center Nurse 2 [Procedure/Treatment] #1 Left julio cluster -Correct Patient No -Correct Side, Site, Position No -Correct Procedure No -Procedure Performed No [See Physician Procedure note for Specifics] Pain Scale: 0-10 Numeric [Pain] -Is Patient Pain Free? Yes Musculoskeletal: No Tenderness to Palpation of Joints or Extremities, Muscle Wasting Neurological: Sensory exam intact to light touch and pain Psych/Mental Status: Normal Affect, Appropriate, Anxious Debridement Note Post-Debridement Measurements/Treatment - Nurse 2 - General Ulcer CM Notes Start: 10/13/17 15:35 Freq: Status: Active Protocol: Activity Type Activity Date Activity User E-Sign Co-Sign Detail Recorded Client Recorded Date Recorded By Document 10/13/17 16:12 [id number] 10/13/17 16:13 Document 10/27/17 14:36 [id number] 10/27/17 14:50 Document 11/03/17 13:30 [id number] 11/03/17 13:31 10/13/17 10/27/17 11/03/17 16:12 14:36 13:30 Wound Center Nurse 2 #1 Left julio cluster -Time 16:13 14:50 -Correct Patient Yes Yes No -Correct Side, Site, Position Yes Yes No -Correct Procedure Yes Yes No -Procedure Performed Yes Yes No -Type of Procedure Debridement Debridement -Clinical Debridement Subcutaneous Subcutaneous -Post Debridement Size (cm) - Length 2 2.2 -Post Debridement Size (cm) - Width 2 2.1 -Post Debridement Size (cm) - Depth 0.2 0.2 -Total Square Cm 4 4.62 -Wound/Ulcer Outcome Not Healed Not Healed -Ulcer Cleansing Rinsed/ Rinsed/ Irrigated with Irrigated with Saline Saline -Foul Odor after Cleansing No No -Bioengineered Tissue No No -Bleeding Controlled with Pressure Pressure -Treatment Response Procedure Procedure Tolerated Well Tolerated Well Pain Scale: 0-10 Numeric Is Patient Pain Free? Yes Yes Yes No debridement was completed today - The patient refuses Assessment/Plan Clinical Impression(s) from Imaging Studies Tibia/Fibula X-Ray 10/23/17 11:25 IMPRESSION: Normal tibia and fibula. 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 lymphedema. Delayed healing. Chronic leg edema. Malnutrition suspected Plan: I reviewed and discussed her care plan and treatment recommendations. She refuses debridement today. We discussed alternative dressing plans. She was not approved for antimicrobial collagen dressing. Apply. I recommended Adaptic and Aquacel Ag to address any microbial bioburden and provoke granulation. To gently wash with soap and water. I do not recommend continuation of the antimicrobial soap cleanse for more than an additional week. She understands this is typically utilized for staph contaminated wounds only. It was utilized in this case in conjunction with her oral antibiotics to decrease bioburden in case additional microbial findings were does not detected in the culture process. It is noted PCR detection was not utilized. To elevate and continue with compression management as tolerated; it is noted this is been going very poorly. To elevate limbs at rest. She is followed up with vascular surgery is recommended and venous intervention will be scheduled after insurance preauthorization is completed Dr. Paz. Venous studies were done previously at [facility] and showed that she has incompetence of veins in her legs b/l at [facility] and [facility] and [facility]. To maintain a well balance diet to optimize healing and wayne nutritional supplementation was recommended. The pathology assessment demonstrates chronic ulceration without malignancy or other rare abnormality. Her leg x-rays were negative for any fractures, soft tissue emphysema, foreign body, or underlying bone abnormalities adjacent to the wound. To complete course of ciprofloxacin. Infectious disease did see the patient today and recommendations are greatly appreciated. I recommend application of advanced wound care provided with growth factors to optimize healing a preauthorization for the effects was already initiated by different provider earlier in her care plan and this was denied for epi fix. I recommend she will be notified upon preauthorization of Regranex in which the order was already placed. This is still pending. She has demonstrated significant delays in healing and this is medically necessary. We discussed the indications , plan application, and anticipate healing healing management. I answered her questions. To return to clinic in 1 week or call sooner if questions or concerns.
[2017-11-10 13:51] VITALS: BP 132/93; PULSE 90; RESP 18; TEMP 37.9; BMI 36.8
--- NOTE | 2017-11-10 15:16 | PCM.WC.PN ---
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 Current Visit: Yes Code(s): Z79.01 - alf (current) use of anticoagulants (5) Factor V deficiency Status: Chronic Current Visit: Yes Code(s): D68.2 - Hereditary deficiency of other clotting factors (6) Protein S deficiency Status: Chronic Current Visit: Yes Code(s): D68.59 - Other primary thrombophilia (7) Venous ulcer of left lower extremity with varicose veins Status: Chronic Current Visit: Yes Code(s): I83.029 - Varicose veins of left lower extremity with ulcer of unspecified site (8) Skin cancer Status: Acute Current Visit: Yes Code(s): C44.90 - Unspecified malignant neoplasm of skin, unspecified (9) Cellulitis of leg, left Status: Resolved Current Visit: Yes Code(s): L03.116 - Cellulitis of left lower limb (10) Pseudomonas infection Status: Acute Current Visit: Yes Code(s): B96.5 - Pseudomonas (aeruginosa) (mallei) (pseudomallei) as the cause of diseases classified elsewhere Type of Wound Date of Service: 11/10/17 Chief Complaint: wound/ulcer on left julio with increased pain History of Wound: Fannie is here today for follow up treatment of a left julio ulcer. She denies fever, chills, increased redness. She has continued wound pain. She has been taking ciprofloxacin as prescribed and uses antimicrobial soap to cleanse the biofilm and contaminated wound bed daily. She denies loss of appetite, nausea or vomiting. She has retried application of CircAid compression wrap and is still not able to tolerate this. She saw vascular surgeon, and schedule venous procedure intervention. She also saw infectious disease previously and will complete her oral antibiotic course. Progress of Wound: stable - Physical Exam Vital Signs Temp Pulse Resp BP 100.2 F H 90 18 132/93 H 11/10/17 13:51 11/10/17 13:51 11/10/17 13:51 11/10/17 13:51 General: Alert, Oriented x3, Cooperative Extremities: No cyanosis, Capillary Refill Less than 3 Seconds, No Calf Tenderness, Diminished Peripheral Pulses, Edema Skin: Ulcer/ Wound - No purulence, no erythema, no streaking odor, no infection. The periwound inflammation still present but is decreased Wound Measurements and Assessment WC - Nurse 1 - General Ulcer Measurement Start: 10/13/17 15:35 Freq: Status: Active Protocol: Activity Type Activity Date Activity User E-Sign Co-Sign Detail Recorded Client Recorded Date Recorded By Document 11/10/17 13:51 KELLEY [id number] 11/10/17 13:52 KELLEY 11/10/17 13:51 Wound Center Nurse 1 [Ulcer Assessment] #1 Left julio cluster -Combined with other wound No -Current Size (cm) - Length 2.2 -Current Size (cm) - Width 2.4 -Current Size (cm) - Depth 0.2 -Total Square Cm 5.28 -Photo Taken No -Epithelialization None Present -Tunneling No -Undermining/Tunneling No -Circular Undermining No -Exudate Amt Small (1-33%) -Exudate Type Serosanguineous -Wound Margin Flat & Intact -Granulation Amt None Present (0 %) -Slough/Fibrin Yes -Necrosis Amt Large (67-100%) -Necrotic Tissue Type Adherent Slough -Structure Exposed N/A -Texture (Kira-wound Skin Appearance) Assessed Localized Edema -Moisture (Kira-wound Skin Appearance Assessed ) Dry/Scaly -Color (Kira-wound Skin Appearance) Assessed Hemosiderin Staining -Temperature (Kira-wound Skin No Abnormality Appearance) (Pt Warm) -Tenderness on Palpation (Kira-wound No Skin Appearance) -Ulcer Cleansing Rinsed/ Irrigated with Saline -Foul Odor after Cleansing No -Anesthetic Used 4% Lidocaine Solution 5% Lidocaine Gel [Edema Assessment] -Lower Limb Edema Present Yes -Left Calf (cm) 48.4 -Left Ankle (cm) 26.6 WC - Nurse 2 - General Ulcer CM Notes Start: 10/13/17 15:35 Freq: Status: Active Protocol: Activity Type Activity Date Activity User E-Sign Co-Sign Detail Recorded Client Recorded Date Recorded By Document 11/10/17 13:55 [id number] 11/10/17 13:56 11/10/17 13:55 Wound Center Nurse 2 [Procedure/Treatment] #1 Left julio cluster -Time 13:55 -Correct Patient Yes -Correct Side, Site, Position Yes -Correct Procedure Yes -Procedure Performed Yes -Type of Procedure Debridement -Clinical Debridement Subcutaneous -Post Debridement Size (cm) - Length 2.2 -Post Debridement Size (cm) - Width 2.4 -Post Debridement Size (cm) - Depth 0.2 -Total Square Cm 5.28 -Wound/Ulcer Outcome Not Healed -Ulcer Cleansing Rinsed/ Irrigated with Saline -Foul Odor after Cleansing No -Bioengineered Tissue No -Bleeding Controlled with Pressure -Treatment Response Procedure Tolerated Well [See Physician Procedure note for Specifics] Pain Scale: 0-10 Numeric [Pain] -Is Patient Pain Free? Yes Musculoskeletal: No Tenderness to Palpation of Joints or Extremities, Muscle Wasting Neurological: Sensory exam intact to light touch and pain Psych/Mental Status: Normal Affect, Appropriate Debridement Note Post-Debridement Measurements/Treatment WC - Nurse 2 - General Ulcer CM Notes Start: 10/13/17 15:35 Freq: Status: Active Protocol: Activity Type Activity Date Activity User E-Sign Co-Sign Detail Recorded Client Recorded Date Recorded By Document 10/13/17 16:12 [id number] 10/13/17 16:13 Document 10/27/17 14:36 [id number] 10/27/17 14:50 Document 11/03/17 13:30 [id number] 11/03/17 13:31 Document 11/10/17 13:55 [id number] 11/10/17 13:56 10/13/17 10/27/17 11/03/17 16:12 14:36 13:30 Wound Center Nurse 2 #1 Left julio cluster -Time 16:13 14:50 -Correct Patient Yes Yes No -Correct Side, Site, Position Yes Yes No -Correct Procedure Yes Yes No -Procedure Performed Yes Yes No -Type of Procedure Debridement Debridement -Clinical Debridement Subcutaneous Subcutaneous -Post Debridement Size (cm) - Length 2 2.2 -Post Debridement Size (cm) - Width 2 2.1 -Post Debridement Size (cm) - Depth 0.2 0.2 -Total Square Cm 4 4.62 -Wound/Ulcer Outcome Not Healed Not Healed -Ulcer Cleansing Rinsed/ Rinsed/ Irrigated with Irrigated with Saline Saline -Foul Odor after Cleansing No No -Bioengineered Tissue No No -Bleeding Controlled with Pressure Pressure -Treatment Response Procedure Procedure Tolerated Well Tolerated Well Pain Scale: 0-10 Numeric Is Patient Pain Free? Yes Yes Yes 11/10/17 13:55 Wound Center Nurse 2 #1 Left julio cluster -Time 13:55 -Correct Patient Yes -Correct Side, Site, Position Yes -Correct Procedure Yes -Procedure Performed Yes -Type of Procedure Debridement -Clinical Debridement Subcutaneous -Post Debridement Size (cm) - Length 2.2 -Post Debridement Size (cm) - Width 2.4 -Post Debridement Size (cm) - Depth 0.2 -Total Square Cm 5.28 -Wound/Ulcer Outcome Not Healed -Ulcer Cleansing Rinsed/ Irrigated with Saline -Foul Odor after Cleansing No -Bioengineered Tissue No -Bleeding Controlled with Pressure -Treatment Response Procedure Tolerated Well Pain Scale: 0-10 Numeric Is Patient Pain Free? Yes Wound debrided: leg Laterality: Left Type of Debridement: Excisional debridement Anesthesia Used: 5% Lidocaine Gel Depth: in the subcutaneous layer Percentage of wound debrided: 100 Instrument Used: 5mm curette Tissue Removed: fibrous, devitalized subcutaneous, biofilm, slough Amount of bleeding with debridement: Mild Bleeding Controlled with: Pressure Patient tolerated procedure well Assessment/Plan Clinical Impression(s) from Imaging Studies Tibia/Fibula X-Ray 10/23/17 11:25 IMPRESSION: Normal tibia and fibula. 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 lymphedema. Delayed healing. Chronic leg edema. Malnutrition suspected Plan: I reviewed and discussed her care plan and treatment recommendations. Debridement was performed as noted in the clinical panel. We discussed alternative dressing plans. She was not approved for antimicrobial collagen dressing. I recommended Adaptic and Aquacel Ag to address any microbial bioburden and provoke granulation. To gently wash with soap and water. I do not recommend continuation of the antimicrobial soap cleanse for more than an additional week. To elevate and continue with compression management as tolerated; it is noted this is been going very poorly. To elevate limbs at rest. She is followed up with vascular surgery is recommended and venous intervention will be scheduled after insurance preauthorization is completed Dr. Paz. Venous studies were done previously at [facility] and showed that she has incompetence of veins in her legs b/l at [facility] and [facility]. To maintain a well balance diet to optimize healing and wayne nutritional supplementation was recommended. The pathology assessment demonstrates chronic ulceration without malignancy or other rare abnormality. Her leg x-rays were negative for any fractures, soft tissue emphysema, foreign body, or underlying bone abnormalities adjacent to the wound. Previous infectious disease recommendations are appreciated. I recommend application of advanced wound care provided with growth factors to optimize healing a preauthorization for the effects was already initiated by different provider earlier in her care plan and this was denied for epi fix. I recommend she will be notified upon preauthorization of Regranex in which the order was already placed. This is still pending. She has demonstrated significant delays in healing and this is medically necessary. We discussed the indications, plan application, and anticipate healing healing management. I answered her questions. It is her pain is still uncontrolled. It is also okay for her to take this once prior to debridement. Injectable local anesthetic will be considered at follow-up visit and after her venous intervention to debride more aggressively in a tolerable manner. To return to clinic in 1 week or call sooner if questions or concerns.
== END 2017-11-11 23:59 ==
LOC: WC 13:30
PROVIDERS: Podiatrist; Family Provider Family Medicine; PCP Family Medicine; Visit Provider Family Medicine
DX: L97.922 Non-pressure chronic ulcer of unspecified part of left lower leg with fat layer exposed (principal); I89.0 Lymphedema, not elsewhere classified; Z79.01 Long term (current) use of anticoagulants; Z86.718 Personal history of other venous thrombosis and embolism; D68.2 Hereditary deficiency of other clotting factors; D68.59 Other primary thrombophilia; I83.029 Varicose veins of left lower extremity with ulcer of unspecified site; I87.2 Venous insufficiency (chronic) (peripheral); C44.90 Unspecified malignant neoplasm of skin, unspecified; L03.116 Cellulitis of left lower limb; B96.5 Pseudomonas (aeruginosa) (mallei) (pseudomallei) as the cause of diseases classified elsewhere; R60.0 Localized edema
CPT/HCPCS: 11042; 11100; 73590; 80053; 85025; 85652; 86140; 87070; 87077; 87186; 87205; 87640; 88304; 88305; 88312; 99213; G0463

== ENCOUNTER 2017-12-10 13:00 | Outpatient (RCR) | payer OTHER, SELFPAY ==
[2017-11-12 00:37] VITALS: BP 132/93; PULSE 90; RESP 18; TEMP 37.9; BMI 36.8
[2017-11-26 15:30] VITALS: BP 142/76; PULSE 85; RESP 20; TEMP 37.4; BMI 36.8
--- NOTE | 2017-11-26 21:56 | PCM.WC.PN ---
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 She denies fever, chills, increased redness. She has continued wound pain. She has been taking ciprofloxacin as prescribed and uses antimicrobial soap to cleanse the biofilm and contaminated wound bed daily. She denies loss of appetite, nausea or vomiting. She has retried application of CircAid compression wrap and is still not able to tolerate this. She saw vascular surgeon, and is scheduled for venous procedure intervention. Progress of Wound: Fannie's wound is relatively unchanged from her previous visit. She is unable to tolerate the venous stasis pad due to pain. Will continue to use - Physical Exam Vital Signs Temp Pulse Resp BP 99.3 F H 85 20 H 142/76 H 11/26/17 15:30 11/26/17 15:30 11/26/17 15:30 11/26/17 15:30 General: Alert, Oriented x3, Cooperative, No apparent distress HEENT: Atraumatic, Normocephalic Oral: Moist Mucosa Abdomen: Obese Extremities: Edema Skin: Ulcer/ Wound Wound Measurements and Assessment WC - Nurse 1 - General Ulcer Measurement Start: 11/26/17 15:29 Freq: Status: Active Protocol: Activity Type Activity Date Activity User E-Sign Co-Sign Detail Recorded Client Recorded Date Recorded By Document 11/26/17 15:30 SHANDRA [id number] 11/26/17 15:44 11/26/17 15:30 Wound Center Nurse 1 [Ulcer Assessment] #1 Left julio cluster -Combined with other wound Yes -Combined with (Name of Wound-Exactly LEFT JULIO as it is documented) CLUSTER -Current Size (cm) - Length 2.0 -Current Size (cm) - Width 2.3 -Current Size (cm) - Depth 0.3 -Total Square Cm 4.60 -Date of Last Picture (Recall this 11/26/17 field) -Photo Taken Yes -Epithelialization None Present -Tunneling No -Undermining/Tunneling No -Circular Undermining No -Classification - Thickness Full Thickness without Exposed Support Structure -Change in Wound Grade/Stage No Query Text:If change please identify the Stage/Grade in the comment (ie. S2 G3) -Exudate Amt Small (1-33%) -Exudate Type Serosanguineous -Wound Margin Distinct, Outline Attached -Granulation Amt Small (1-33%) -Granulation Quality Red -Slough/Fibrin Yes -Necrosis Amt None Present (0 %) -Necrotic Tissue Type Eschar -Structure Exposed N/A -Texture (Kira-wound Skin Appearance) No Abnormality Localized Edema -Moisture (Kira-wound Skin Appearance No Abnormality ) -Color (Kira-wound Skin Appearance) No Abnormality Hemosiderin Staining -Temperature (Kira-wound Skin No Abnormality Appearance) (Pt Warm) -Tenderness on Palpation (Kira-wound Yes Skin Appearance) -Ulcer Cleansing Rinsed/ Irrigated with Saline -Foul Odor after Cleansing No -Anesthetic Used 5% Lidocaine Gel [Edema Assessment] -Lower Limb Edema Present Yes -Left Calf (cm) 48.5 -Left Ankle (cm) 27.0 WC - Nurse 2 - General Ulcer CM Notes Start: 11/26/17 15:29 Freq: Status: Active Protocol: Activity Type Activity Date Activity User E-Sign Co-Sign Detail Recorded Client Recorded Date Recorded By Document 11/26/17 16:13 DV [id number] 11/26/17 16:19 DV 11/26/17 16:13 Wound Center Nurse 2 [Procedure/Treatment] #1 Left julio cluster -Time 16:14 -Correct Patient Yes -Correct Side, Site, Position Yes -Correct Procedure Yes -Procedure Performed Yes -Type of Procedure Debridement -Clinical Debridement Subcutaneous -Post Debridement Size (cm) - Length 2.0 -Post Debridement Size (cm) - Width 2.0 -Post Debridement Size (cm) - Depth 0.3 -Total Square Cm 4.00 -Wound/Ulcer Outcome Not Healed -Ulcer Cleansing Rinsed/ Irrigated with Saline -Foul Odor after Cleansing No -Bioengineered Tissue No -Bleeding Controlled with Pressure -Treatment Response Procedure Tolerated Well [See Physician Procedure note for Specifics] Pain Scale: 0-10 Numeric [Pain] -Is Patient Pain Free? Yes Psych/Mental Status: Normal Affect, Appropriate Debridement Note Post-Debridement Measurements/Treatment WC - Nurse 2 - General Ulcer CM Notes Start: 11/26/17 15:29 Freq: Status: Active Protocol: Activity Type Activity Date Activity User E-Sign Co-Sign Detail Recorded Client Recorded Date Recorded By Document 11/26/17 16:13 DV [id number] 11/26/17 16:19 DV 11/26/17 16:13 Wound Center Nurse 2 #1 Left julio cluster -Time 16:14 -Correct Patient Yes -Correct Side, Site, Position Yes -Correct Procedure Yes -Procedure Performed Yes -Type of Procedure Debridement -Clinical Debridement Subcutaneous -Post Debridement Size (cm) - Length 2.0 -Post Debridement Size (cm) - Width 2.0 -Post Debridement Size (cm) - Depth 0.3 -Total Square Cm 4.00 -Wound/Ulcer Outcome Not Healed -Ulcer Cleansing Rinsed/ Irrigated with Saline -Foul Odor after Cleansing No -Bioengineered Tissue No -Bleeding Controlled with Pressure -Treatment Response Procedure Tolerated Well Pain Scale: 0-10 Numeric Is Patient Pain Free? Yes Wound debrided: left julio cluster Laterality: Left Type of Debridement: Excisional debridement Anesthesia Used: 4% Lidocaine Solution, 5% Lidocaine Gel Depth: Down to and including healthy tissue, in the subcutaneous layer Percentage of wound debrided: 100 Instrument Used: 5mm curette Tissue Removed: yellow slough, devitalized tissue Severity: Fat Layer Exposed Amount of bleeding with debridement: Mild Bleeding Controlled with: Compression and gauze Patient tolerated procedure well Assessment/Plan Active Problems Ulcer of left lower extremity with fat layer exposed (Chronic) Lymphedema (Chronic) H/O deep venous thrombosis (Chronic) 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 lymphedema. Delayed healing. Chronic leg edema. Malnutrition suspected Plan: Fannie's wounds were evaluated and debrided today. Will continue treatment with Adaptic and Debbie to address any microbial bioburden and provoke granulation. To gently wash with soap and water. To elevate and continue with compression management as tolerated. She is encouraged to elevate legs when at rest. She has followed up with vascular surgery and venous intervention will be scheduled after insurance preauthorization is completed by Dr. Paz. Venous studies were done previously at [facility] and showed that she has incompetence of veins in her legs b/l at [facility] and [facility]. Encouraged protein supplementation. The pathology assessment demonstrates chronic ulceration without malignancy or other rare abnormality. Her leg x-rays were negative for any fractures, soft tissue emphysema, foreign body, or underlying bone abnormalities adjacent to the wound. Previous infectious disease recommendations are appreciated. I recommend application of advanced wound care provided with growth factors to optimize healing a preauthorization for the effects was already initiated by different provider earlier in her care plan and this was denied for epifix. She has been denied for Regranex as well. She has demonstrated significant delays in healing and this is medically necessary but not approved by her insurance. Her pain is still uncontrolled. She has tramadol to take as needed as well as gabapentin to take at bedtime. It is okay for her to take this once prior to debridement. Injectable local anesthetic will be considered at follow-up visit and after her venous intervention to debride more aggressively in a tolerable manner. To return to clinic in 1 week or call sooner if questions or concerns.
--- NOTE | 2017-11-26 22:04 | PN.PCM_ITS ---
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 She denies fever, chills, increased redness. She has continued wound pain. She has been taking ciprofloxacin as prescribed and uses antimicrobial soap to cleanse the biofilm and contaminated wound bed daily. She denies loss of appetite, nausea or vomiting. She has retried application of CircAid compression wrap and is still not able to tolerate this. She saw vascular surgeon, and is scheduled for venous procedure intervention. Progress of Wound: Fannie's wound is relatively unchanged from her previous visit. She is unable to tolerate the venous stasis pad due to pain. Will continue to use - Physical Exam Vital Signs Temp Pulse Resp BP 99.3 F H 85 20 H 142/76 H 11/26/17 15:30 11/26/17 15:30 11/26/17 15:30 11/26/17 15:30 General: Alert, Oriented x3, Cooperative, No apparent distress HEENT: Atraumatic, Normocephalic Oral: Moist Mucosa Abdomen: Obese Extremities: Edema Skin: Ulcer/ Wound Wound Measurements and Assessment WC - Nurse 1 - General Ulcer Measurement Start: 11/26/17 15:29 Freq: Status: Active Protocol: Activity Type Activity Date Activity User E-Sign Co-Sign Detail Recorded Client Recorded Date Recorded By Document 11/26/17 15:30 [email or web address] [id number] 11/26/17 15:44 11/26/17 15:30 Wound Center Nurse 1 [Ulcer Assessment] #1 Left julio cluster -Combined with other wound Yes -Combined with (Name of Wound-Exactly LEFT JULIO as it is documented) CLUSTER -Current Size (cm) - Length 2.0 -Current Size (cm) - Width 2.3 -Current Size (cm) - Depth 0.3 -Total Square Cm 4.60 -Date of Last Picture (Recall this 11/26/17 field) -Photo Taken Yes -Epithelialization None Present -Tunneling No -Undermining/Tunneling No -Circular Undermining No -Classification - Thickness Full Thickness without Exposed Support Structure -Change in Wound Grade/Stage No Query Text:If change please identify the Stage/Grade in the comment (ie. S2 G3) -Exudate Amt Small (1-33%) -Exudate Type Serosanguineous -Wound Margin Distinct, Outline Attached -Granulation Amt Small (1-33%) -Granulation Quality Red -Slough/Fibrin Yes -Necrosis Amt None Present (0 %) -Necrotic Tissue Type Eschar -Structure Exposed N/A -Texture (Kira-wound Skin Appearance) No Abnormality Localized Edema -Moisture (Kira-wound Skin Appearance No Abnormality ) -Color (Kira-wound Skin Appearance) No Abnormality Hemosiderin Staining -Temperature (Kira-wound Skin No Abnormality Appearance) (Pt Warm) -Tenderness on Palpation (Kira-wound Yes Skin Appearance) -Ulcer Cleansing Rinsed/ Irrigated with Saline -Foul Odor after Cleansing No -Anesthetic Used 5% Lidocaine Gel [Edema Assessment] -Lower Limb Edema Present Yes -Left Calf (cm) 48.5 -Left Ankle (cm) 27.0 WC - Nurse 2 - General Ulcer CM Notes Start: 11/26/17 15:29 Freq: Status: Active Protocol: Activity Type Activity Date Activity User E-Sign Co-Sign Detail Recorded Client Recorded Date Recorded By Document 11/26/17 16:13 DV [id number] 11/26/17 16:19 DV 11/26/17 16:13 Wound Center Nurse 2 [Procedure/Treatment] #1 Left julio cluster -Time 16:14 -Correct Patient Yes -Correct Side, Site, Position Yes -Correct Procedure Yes -Procedure Performed Yes -Type of Procedure Debridement -Clinical Debridement Subcutaneous -Post Debridement Size (cm) - Length 2.0 -Post Debridement Size (cm) - Width 2.0 -Post Debridement Size (cm) - Depth 0.3 -Total Square Cm 4.00 -Wound/Ulcer Outcome Not Healed -Ulcer Cleansing Rinsed/ Irrigated with Saline -Foul Odor after Cleansing No -Bioengineered Tissue No -Bleeding Controlled with Pressure -Treatment Response Procedure Tolerated Well [See Physician Procedure note for Specifics] Pain Scale: 0-10 Numeric [Pain] -Is Patient Pain Free? Yes Psych/Mental Status: Normal Affect, Appropriate Debridement Note Post-Debridement Measurements/Treatment WC - Nurse 2 - General Ulcer CM Notes Start: 11/26/17 15:29 Freq: Status: Active Protocol: Activity Type Activity Date Activity User E-Sign Co-Sign Detail Recorded Client Recorded Date Recorded By Document 11/26/17 16:13 DV [id number] 11/26/17 16:19 DV 11/26/17 16:13 Wound Center Nurse 2 #1 Left julio cluster -Time 16:14 -Correct Patient Yes -Correct Side, Site, Position Yes -Correct Procedure Yes -Procedure Performed Yes -Type of Procedure Debridement -Clinical Debridement Subcutaneous -Post Debridement Size (cm) - Length 2.0 -Post Debridement Size (cm) - Width 2.0 -Post Debridement Size (cm) - Depth 0.3 -Total Square Cm 4.00 -Wound/Ulcer Outcome Not Healed -Ulcer Cleansing Rinsed/ Irrigated with Saline -Foul Odor after Cleansing No -Bioengineered Tissue No -Bleeding Controlled with Pressure -Treatment Response Procedure Tolerated Well Pain Scale: 0-10 Numeric Is Patient Pain Free? Yes Wound debrided: left julio cluster Laterality: Left Type of Debridement: Excisional debridement Anesthesia Used: 4% Lidocaine Solution, 5% Lidocaine Gel Depth: Down to and including healthy tissue, in the subcutaneous layer Percentage of wound debrided: 100 Instrument Used: 5mm curette Tissue Removed: yellow slough, devitalized tissue Severity: Fat Layer Exposed Amount of bleeding with debridement: Mild Bleeding Controlled with: Compression and gauze Patient tolerated procedure well Assessment/Plan Active Problems Ulcer of left lower extremity with fat layer exposed (Chronic) Lymphedema (Chronic) H/O deep venous thrombosis (Chronic) 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 lymphedema. Delayed healing. Chronic leg edema. Malnutrition suspected Plan: Fannie's wounds were evaluated and debrided today. Will continue treatment with Adaptic and Debbie to address any microbial bioburden and provoke granulation. To gently wash with soap and water. To elevate and continue with compression management as tolerated. She is encouraged to elevate legs when at rest. She has followed up with vascular surgery and venous intervention will be scheduled after insurance preauthorization is completed by Dr. Paz. Venous studies were done previously at [facility] and showed that she has incompetence of veins in her legs b/l at [facility] and [facility] and [facility]. Encouraged protein supplementation. The pathology assessment demonstrates chronic ulceration without malignancy or other rare abnormality. Her leg x-rays were negative for any fractures, soft tissue emphysema, foreign body, or underlying bone abnormalities adjacent to the wound. Previous infectious disease recommendations are appreciated. I recommend application of advanced wound care provided with growth factors to optimize healing a preauthorization for the effects was already initiated by different provider earlier in her care plan and this was denied for epifix. She has been denied for Regranex as well. She has demonstrated significant delays in healing and this is medically necessary but not approved by her insurance. Her pain is still uncontrolled. She has tramadol to take as needed as well as gabapentin to take at bedtime. It is okay for her to take this once prior to debridement. Injectable local anesthetic will be considered at follow-up visit and after her venous intervention to debride more aggressively in a tolerable manner. To return to clinic in 1 week or call sooner if questions or concerns.
[2017-12-10 13:26] VITALS: BP 150/113; PULSE 80; RESP 16; TEMP 37.3; BMI 36.8
--- NOTE | 2017-12-10 19:49 | PCM.WC.PN ---
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 She denies fever, chills, increased redness. She has continued wound pain. She has been taking ciprofloxacin as prescribed and uses antimicrobial soap to cleanse the biofilm and contaminated wound bed daily. She denies loss of appetite, nausea or vomiting. She has retried application of CircAid compression wrap and is still not able to tolerate this. She saw vascular surgeon, and is scheduled for venous procedure intervention. Progress of Wound: Fannie's wound is relatively unchanged from her previous visit. She is scheduled to have venous ablation done by Dr. Paz on 01/11 and 01/17 with follow up US on 01/24. She is tolerating Debbie and tubigrip compression. - Physical Exam Vital Signs Temp Pulse Resp BP 99.1 F 80 16 150/113 H 12/10/17 13:26 12/10/17 13:26 12/10/17 13:26 12/10/17 13:26 General: Alert, Oriented x3, Cooperative, No apparent distress HEENT: Atraumatic, Normocephalic Oral: Moist Mucosa Abdomen: Obese Extremities: Edema Skin: Ulcer/ Wound Wound Measurements and Assessment WC - Nurse 1 - General Ulcer Measurement Start: 11/26/17 15:29 Freq: Status: Active Protocol: Activity Type Activity Date Activity User E-Sign Co-Sign Detail Recorded Client Recorded Date Recorded By Document 12/10/17 13:26 [id number] 12/10/17 13:30 12/10/17 13:26 Wound Center Nurse 1 [Ulcer Assessment] #1 Left julio cluster -Combined with other wound No -Current Size (cm) - Length 2.2 -Current Size (cm) - Width 2.1 -Current Size (cm) - Depth 0.3 -Total Square Cm 4.62 -Photo Taken No -Granulation Amt Small (1-33%) -Granulation Quality Red -Slough/Fibrin Yes -Necrosis Amt Small (1-33%) -Necrotic Tissue Type Adherent Slough -Structure Exposed None/Limited to Skin Breakdown -Texture (Kira-wound Skin Appearance) Assessed -Moisture (Kira-wound Skin Appearance Assessed ) -Color (Kira-wound Skin Appearance) Assessed Erythema -Temperature (Kira-wound Skin No Abnormality Appearance) (Pt Warm) -Tenderness on Palpation (Kira-wound No Skin Appearance) -Ulcer Cleansing Rinsed/ Irrigated with Saline -Foul Odor after Cleansing No -Anesthetic Used 5% Lidocaine Gel [Edema Assessment] -Lower Limb Edema Present Yes -Left Calf (cm) 46.9 -Left Ankle (cm) 26.6 WC - Nurse 2 - General Ulcer CM Notes Start: 11/26/17 15:29 Freq: Status: Active Protocol: Activity Type Activity Date Activity User E-Sign Co-Sign Detail Recorded Client Recorded Date Recorded By Document 12/10/17 14:23 [id number] 12/10/17 14:25 12/10/17 14:23 Wound Center Nurse 2 [Procedure/Treatment] #1 Left julio cluster -Time 14:24 -Correct Patient Yes -Correct Side, Site, Position Yes -Correct Procedure Yes -Procedure Performed Yes -Type of Procedure Debridement -Clinical Debridement Subcutaneous -Post Debridement Size (cm) - Length 2.0 -Post Debridement Size (cm) - Width 2.2 -Post Debridement Size (cm) - Depth 0.3 -Total Square Cm 4.40 -Wound/Ulcer Outcome Not Healed -Ulcer Cleansing Rinsed/ Irrigated with Saline -Foul Odor after Cleansing No -Bioengineered Tissue No -Topical Lidocaine (%) 5 -Bleeding Controlled with Pressure -Treatment Response Procedure Tolerated Well [See Physician Procedure note for Specifics] Pain Scale: 0-10 Numeric [Pain] -Is Patient Pain Free? Yes Psych/Mental Status: Normal Affect, Appropriate Debridement Note Post-Debridement Measurements/Treatment WC - Nurse 2 - General Ulcer CM Notes Start: 11/26/17 15:29 Freq: Status: Active Protocol: Activity Type Activity Date Activity User E-Sign Co-Sign Detail Recorded Client Recorded Date Recorded By Document 11/26/17 16:13 DV [id number] 11/26/17 16:19 DV Document 12/10/17 14:23 TM [id number] 12/10/17 14:25 TM 11/26/17 12/10/17 16:13 14:23 Wound Center Nurse 2 #1 Left julio cluster -Time 16:14 14:24 -Correct Patient Yes Yes -Correct Side, Site, Position Yes Yes -Correct Procedure Yes Yes -Procedure Performed Yes Yes -Type of Procedure Debridement Debridement -Clinical Debridement Subcutaneous Subcutaneous -Post Debridement Size (cm) - Length 2.0 2.0 -Post Debridement Size (cm) - Width 2.0 2.2 -Post Debridement Size (cm) - Depth 0.3 0.3 -Total Square Cm 4.00 4.40 -Wound/Ulcer Outcome Not Healed Not Healed -Ulcer Cleansing Rinsed/ Rinsed/ Irrigated with Irrigated with Saline Saline -Foul Odor after Cleansing No No -Bioengineered Tissue No No -Topical Lidocaine (%) 5 -Bleeding Controlled with Pressure Pressure -Treatment Response Procedure Procedure Tolerated Well Tolerated Well Pain Scale: 0-10 Numeric Is Patient Pain Free? Yes Yes Wound debrided: left julio cluster Laterality: Left Type of Debridement: Excisional debridement Anesthesia Used: 4% Lidocaine Solution Depth: Down to and including healthy tissue, in the subcutaneous layer Percentage of wound debrided: 100 Instrument Used: 5mm curette Tissue Removed: yellow slough, devitalized tissue Severity: Fat Layer Exposed Amount of bleeding with debridement: Mild Bleeding Controlled with: Compression and gauze Patient tolerated procedure well Assessment/Plan Active Problems Ulcer of left lower extremity with fat layer exposed (Chronic) Lymphedema (Chronic) H/O deep venous thrombosis (Chronic) 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 lymphedema. Delayed healing. Chronic leg edema. Malnutrition suspected Plan: Fannie's wounds were evaluated and debrided today. Will continue treatment with Adaptic and Debbie to address any microbial bioburden and provoke granulation. To gently wash with soap and water. To elevate and continue with compression management as tolerated. She is encouraged to elevate legs when at rest. She has followed up with vascular surgery and venous intervention is scheduled for 01/11 and 01/[address] Paz. Venous studies were done previously at [facility] and showed that she has incompetence of veins in her legs b/l at [facility] and [facility], [place] and [facility]. Encouraged protein supplementation. The pathology assessment demonstrates chronic ulceration without malignancy or other rare abnormality. Her leg x-rays were negative for any fractures, soft tissue emphysema, foreign body, or underlying bone abnormalities adjacent to the wound. Previous infectious disease recommendations are appreciated. I recommend application of advanced wound care provided with growth factors to optimize healing a preauthorization for the effects was already initiated by different provider earlier in her care plan and this was denied for epifix. She has been denied for Regranex as well. She has demonstrated significant delays in healing and this is medically necessary but not approved by her insurance. Her pain is still uncontrolled. She has tramadol to take as needed as well as gabapentin to take at bedtime. It is okay for her to take this once prior to debridement. OARRS appropriate and no signs of abuse. Injectable local anesthetic will be considered at follow-up visit and after her venous intervention to debride more aggressively in a tolerable manner. To return to clinic in 2 weeks or call sooner if questions or concerns.
--- NOTE | 2017-12-10 19:53 | PN.PCM_ITS ---
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 She denies fever, chills, increased redness. She has continued wound pain. She has been taking ciprofloxacin as prescribed and uses antimicrobial soap to cleanse the biofilm and contaminated wound bed daily. She denies loss of appetite, nausea or vomiting. She has retried application of CircAid compression wrap and is still not able to tolerate this. She saw vascular surgeon, and is scheduled for venous procedure intervention. Progress of Wound: Fannie's wound is relatively unchanged from her previous visit. She is scheduled to have venous ablation done by Dr. Paz on 01/11 and with follow up US on 01/24. She is tolerating Debbie and tubigrip compression. - Physical Exam Vital Signs Temp Pulse Resp BP 99.1 F 80 16 150/113 H 12/10/17 13:26 12/10/17 13:26 12/10/17 13:26 12/10/17 13:26 General: Alert, Oriented x3, Cooperative, No apparent distress HEENT: Atraumatic, Normocephalic Oral: Moist Mucosa Abdomen: Obese Extremities: Edema Skin: Ulcer/ Wound Wound Measurements and Assessment WC - Nurse 1 - General Ulcer Measurement Start: 11/26/17 15:29 Freq: Status: Active Protocol: Activity Type Activity Date Activity User E-Sign Co-Sign Detail Recorded Client Recorded Date Recorded By Document 12/10/17 13:26 [id number] 12/10/17 13:30 12/10/17 13:26 Wound Center Nurse 1 [Ulcer Assessment] #1 Left julio cluster -Combined with other wound No -Current Size (cm) - Length 2.2 -Current Size (cm) - Width 2.1 -Current Size (cm) - Depth 0.3 -Total Square Cm 4.62 -Photo Taken No -Granulation Amt Small (1-33%) -Granulation Quality Red -Slough/Fibrin Yes -Necrosis Amt Small (1-33%) -Necrotic Tissue Type Adherent Slough -Structure Exposed None/Limited to Skin Breakdown -Texture (Kira-wound Skin Appearance) Assessed -Moisture (Kira-wound Skin Appearance Assessed ) -Color (Kira-wound Skin Appearance) Assessed Erythema -Temperature (Kira-wound Skin No Abnormality Appearance) (Pt Warm) -Tenderness on Palpation (Kira-wound No Skin Appearance) -Ulcer Cleansing Rinsed/ Irrigated with Saline -Foul Odor after Cleansing No -Anesthetic Used 5% Lidocaine Gel [Edema Assessment] -Lower Limb Edema Present Yes -Left Calf (cm) 46.9 -Left Ankle (cm) 26.6 WC - Nurse 2 - General Ulcer CM Notes Start: 11/26/17 15:29 Freq: Status: Active Protocol: Activity Type Activity Date Activity User E-Sign Co-Sign Detail Recorded Client Recorded Date Recorded By Document 12/10/17 14:23 [id number] 12/10/17 14:25 12/10/17 14:23 Wound Center Nurse 2 [Procedure/Treatment] #1 Left julio cluster -Time 14:24 -Correct Patient Yes -Correct Side, Site, Position Yes -Correct Procedure Yes -Procedure Performed Yes -Type of Procedure Debridement -Clinical Debridement Subcutaneous -Post Debridement Size (cm) - Length 2.0 -Post Debridement Size (cm) - Width 2.2 -Post Debridement Size (cm) - Depth 0.3 -Total Square Cm 4.40 -Wound/Ulcer Outcome Not Healed -Ulcer Cleansing Rinsed/ Irrigated with Saline -Foul Odor after Cleansing No -Bioengineered Tissue No -Topical Lidocaine (%) 5 -Bleeding Controlled with Pressure -Treatment Response Procedure Tolerated Well [See Physician Procedure note for Specifics] Pain Scale: 0-10 Numeric [Pain] -Is Patient Pain Free? Yes Psych/Mental Status: Normal Affect, Appropriate Debridement Note Post-Debridement Measurements/Treatment WC - Nurse 2 - General Ulcer CM Notes Start: 11/26/17 15:29 Freq: Status: Active Protocol: Activity Type Activity Date Activity User E-Sign Co-Sign Detail Recorded Client Recorded Date Recorded By Document 11/26/17 16:13 DV [id number] 11/26/17 16:19 DV Document 12/10/17 14:23 TM [id number] 12/10/17 14:25 TM 11/26/17 12/10/17 16:13 14:23 Wound Center Nurse 2 #1 Left julio cluster -Time 16:14 14:24 -Correct Patient Yes Yes -Correct Side, Site, Position Yes Yes -Correct Procedure Yes Yes -Procedure Performed Yes Yes -Type of Procedure Debridement Debridement -Clinical Debridement Subcutaneous Subcutaneous -Post Debridement Size (cm) - Length 2.0 2.0 -Post Debridement Size (cm) - Width 2.0 2.2 -Post Debridement Size (cm) - Depth 0.3 0.3 -Total Square Cm 4.00 4.40 -Wound/Ulcer Outcome Not Healed Not Healed -Ulcer Cleansing Rinsed/ Rinsed/ Irrigated with Irrigated with Saline Saline -Foul Odor after Cleansing No No -Bioengineered Tissue No No -Topical Lidocaine (%) 5 -Bleeding Controlled with Pressure Pressure -Treatment Response Procedure Procedure Tolerated Well Tolerated Well Pain Scale: 0-10 Numeric Is Patient Pain Free? Yes Yes Wound debrided: left julio cluster Laterality: Left Type of Debridement: Excisional debridement Anesthesia Used: 4% Lidocaine Solution Depth: Down to and including healthy tissue, in the subcutaneous layer Percentage of wound debrided: 100 Instrument Used: 5mm curette Tissue Removed: yellow slough, devitalized tissue Severity: Fat Layer Exposed Amount of bleeding with debridement: Mild Bleeding Controlled with: Compression and gauze Patient tolerated procedure well Assessment/Plan Active Problems Ulcer of left lower extremity with fat layer exposed (Chronic) Lymphedema (Chronic) H/O deep venous thrombosis (Chronic) 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 lymphedema. Delayed healing. Chronic leg edema. Malnutrition suspected Plan: Fannie's wounds were evaluated and debrided today. Will continue treatment with Adaptic and Debbie to address any microbial bioburden and provoke granulation. To gently wash with soap and water. To elevate and continue with compression management as tolerated. She is encouraged to elevate legs when at rest. She has followed up with vascular surgery and venous intervention is scheduled for 01/11 and 01/[address] Paz. Venous studies were done previously at [facility] and showed that she has incompetence of veins in her legs b/l at [facility] and [facility] and [facility]. Encouraged protein supplementation. The pathology assessment demonstrates chronic ulceration without malignancy or other rare abnormality. Her leg x-rays were negative for any fractures, soft tissue emphysema, foreign body, or underlying bone abnormalities adjacent to the wound. Previous infectious disease recommendations are appreciated. I recommend application of advanced wound care provided with growth factors to optimize healing a preauthorization for the effects was already initiated by different provider earlier in her care plan and this was denied for epifix. She has been denied for Regranex as well. She has demonstrated significant delays in healing and this is medically necessary but not approved by her insurance. Her pain is still uncontrolled. She has tramadol to take as needed as well as gabapentin to take at bedtime. It is okay for her to take this once prior to debridement. OARRS appropriate and no signs of abuse. Injectable local anesthetic will be considered at follow-up visit and after her venous intervention to debride more aggressively in a tolerable manner. To return to clinic in 2 weeks or call sooner if questions or concerns.
== END 2017-12-11 23:59 ==
LOC: WC 13:00
PROVIDERS: Family Provider Family Medicine; PCP Family Medicine; Visit Provider Family Medicine
DX: I83.028 Varicose veins of left lower extremity with ulcer other part of lower leg (principal); L97.822 Non-pressure chronic ulcer of other part of left lower leg with fat layer exposed; I89.0 Lymphedema, not elsewhere classified; Z86.718 Personal history of other venous thrombosis and embolism
CPT/HCPCS: 11042; 97597

== ENCOUNTER 2018-01-07 13:00 | Outpatient (RCR) | payer OTHER, SELFPAY ==
[2017-12-12 00:35] VITALS: BP 150/113; PULSE 80; RESP 16; TEMP 37.3; BMI 36.8
[2017-12-24 12:53] VITALS: BP 129/77; PULSE 80; RESP 16; TEMP 37; BMI 36.8
--- NOTE | 2017-12-24 17:53 | PCM.WC.PN ---
(1) Cellulitis of left leg Status: Chronic Current Visit: Yes Code(s): L03.116 - Cellulitis of left lower limb (2) Ulcer of left lower extremity with fat layer exposed Status: Chronic Current Visit: Yes Code(s): L97.922 - Non-pressure chronic ulcer of unspecified part of left lower leg with fat layer exposed (3) Lymphedema Status: Chronic Current Visit: Yes Code(s): I89.0 - Lymphedema, not elsewhere classified (4) Venous ulcer of left lower extremity with varicose veins Status: Chronic Current Visit: Yes Code(s): I83.029 - Varicose veins of left lower extremity with ulcer of unspecified site Type of Wound Date of Service: 12/24/17 Chief Complaint: wound/ulcer on left julio with increased pain History of Wound: Fannie is here today for follow up treatment of a left julio ulcer. She denies fever, chills, increased redness. She has continued wound pain. She has been taking ciprofloxacin as prescribed and uses antimicrobial soap to cleanse the biofilm and contaminated wound bed daily. She denies loss of appetite, nausea or vomiting. She has retried application of CircAid compression wrap and is still not able to tolerate this. She saw vascular surgeon, and is scheduled for venous procedure intervention. Progress of Wound: Fannie's wound is relatively unchanged from her previous visit. She is scheduled to have venous ablation done by Dr. Paz on 01/11 and 01/17 with follow up US on 01/24. She is tolerating Debbie and tubigrip compression. Has had increased pain over the last week. - Physical Exam Vital Signs Temp Pulse Resp BP 98.6 F 80 16 129/77 H 12/24/17 12:53 12/24/17 12:53 12/24/17 12:53 12/24/17 12:53 General: Alert, Oriented x3, Cooperative, No apparent distress HEENT: Atraumatic, Normocephalic Oral: Moist Mucosa Abdomen: Obese Extremities: Edema Skin: Ulcer/ Wound Wound Measurements and Assessment WC - Nurse 1 - General Ulcer Measurement Start: 12/24/17 12:53 Freq: Status: Active Protocol: Activity Type Activity Date Activity User E-Sign Co-Sign Detail Recorded Client Recorded Date Recorded By Document 12/24/17 12:53 [email or web address] [id number] 12/24/17 13:08 JS 12/24/17 12:53 Wound Center Nurse 1 [Ulcer Assessment] #1 Left julio cluster -Combined with other wound No -Current Size (cm) - Length 1.2 -Current Size (cm) - Width 1.3 -Current Size (cm) - Depth 0.3 -Total Square Cm 1.56 -Date of Last Picture (Recall this 12/24/17 field) -Photo Taken Yes -Epithelialization Small 1-33% -Tunneling No -Undermining/Tunneling No -Circular Undermining No -Classification - Thickness Full Thickness without Exposed Support Structure -Exudate Amt Small (1-33%) -Exudate Type Serosanguineous -Wound Margin Epibole -Granulation Amt Small (1-33%) -Granulation Quality Red -Slough/Fibrin Yes -Necrosis Amt Small (1-33%) -Necrotic Tissue Type Adherent Slough -Structure Exposed None/Limited to Skin Breakdown -Texture (Kira-wound Skin Appearance) No Abnormality -Moisture (Kira-wound Skin Appearance No Abnormality ) -Color (Kira-wound Skin Appearance) Hemosiderin Staining -Temperature (Kira-wound Skin No Abnormality Appearance) (Pt Warm) -Tenderness on Palpation (Kira-wound Yes Skin Appearance) -Ulcer Cleansing Rinsed/ Irrigated with Saline -Foul Odor after Cleansing No -Anesthetic Used 4% Lidocaine Solution 5% Lidocaine Gel [Edema Assessment] -Left Calf (cm) 49.0 -Left Ankle (cm) 28.0 WC - Nurse 2 - General Ulcer CM Notes Start: 12/24/17 12:53 Freq: Status: Active Protocol: Activity Type Activity Date Activity User E-Sign Co-Sign Detail Recorded Client Recorded Date Recorded By Document 12/24/17 13:32 [id number] 12/24/17 13:33 12/24/17 13:32 Wound Center Nurse 2 [Procedure/Treatment] #1 Left julio cluster -Time 13:33 -Correct Patient Yes -Correct Side, Site, Position Yes -Correct Procedure Yes -Procedure Performed Yes -Type of Procedure Debridement -Clinical Debridement Subcutaneous -Post Debridement Size (cm) - Length 2.1 -Post Debridement Size (cm) - Width 2.2 -Post Debridement Size (cm) - Depth 0.2 -Total Square Cm 4.62 -Wound/Ulcer Outcome Not Healed -Ulcer Cleansing Rinsed/ Irrigated with Saline -Foul Odor after Cleansing No -Bioengineered Tissue No -Topical Lidocaine (%) 5 -Bleeding Controlled with Pressure -Treatment Response Procedure Tolerated Well [See Physician Procedure note for Specifics] Pain Scale: 0-10 Numeric [Pain] -Is Patient Pain Free? Yes Psych/Mental Status: Normal Affect, Appropriate Debridement Note Post-Debridement Measurements/Treatment WC - Nurse 2 - General Ulcer CM Notes Start: 12/24/17 12:53 Freq: Status: Active Protocol: Activity Type Activity Date Activity User E-Sign Co-Sign Detail Recorded Client Recorded Date Recorded By Document 12/24/17 13:32 [id number] 12/24/17 13:33 12/24/17 13:32 Wound Center Nurse 2 #1 Left julio cluster -Time 13:33 -Correct Patient Yes -Correct Side, Site, Position Yes -Correct Procedure Yes -Procedure Performed Yes -Type of Procedure Debridement -Clinical Debridement Subcutaneous -Post Debridement Size (cm) - Length 2.1 -Post Debridement Size (cm) - Width 2.2 -Post Debridement Size (cm) - Depth 0.2 -Total Square Cm 4.62 -Wound/Ulcer Outcome Not Healed -Ulcer Cleansing Rinsed/ Irrigated with Saline -Foul Odor after Cleansing No -Bioengineered Tissue No -Topical Lidocaine (%) 5 -Bleeding Controlled with Pressure -Treatment Response Procedure Tolerated Well Pain Scale: 0-10 Numeric Is Patient Pain Free? Yes Wound debrided: left julio cluster Laterality: Left Type of Debridement: Excisional debridement Anesthesia Used: 4% Lidocaine Solution Depth: Down to and including healthy tissue, in the subcutaneous layer Percentage of wound debrided: 100 Instrument Used: 5mm curette Tissue Removed: yellow slough, devitalized tissue Severity: Fat Layer Exposed Amount of bleeding with debridement: Mild Bleeding Controlled with: Compression and gauze Patient tolerated procedure well Assessment/Plan Active Problems Cellulitis of left leg (Chronic) Ulcer of left lower extremity with fat layer exposed (Chronic) Lymphedema (Chronic) Venous ulcer of left lower extremity with varicose veins (Chronic) Assessment: left julio venous ulcer fat layer exposed. 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 lymphedema. Delayed healing. Chronic leg edema. Malnutrition suspected Plan: Fannie's wounds were evaluated and debrided today. Will continue treatment with Adaptic and Debbie to address any microbial bioburden and provoke granulation. To gently wash with soap and water. To elevate and continue with compression management as tolerated. She is encouraged to elevate legs when at rest. She has followed up with vascular surgery and venous intervention is scheduled for 01/11 and 01/[address] Paz. Venous studies were done previously at [facility] and showed that she has incompetence of veins in her legs b/l at [facility] and [facility] and [facility]. Encouraged protein supplementation. The pathology assessment demonstrates chronic ulceration without malignancy or other rare abnormality. Her leg x-rays were negative for any fractures, soft tissue emphysema, foreign body, or underlying bone abnormalities adjacent to the wound. Previous infectious disease recommendations are appreciated. I recommend application of advanced wound care provided with growth factors to optimize healing a preauthorization for the effects was already initiated by different provider earlier in her care plan and this was denied for epifix. She has been denied for Regranex as well. She has demonstrated significant delays in healing and this is medically necessary but not approved by her insurance. Her pain is still uncontrolled. She has tramadol to take as needed as well as gabapentin to take at bedtime. It is okay for her to take this once prior to debridement. OARRS appropriate and no signs of abuse. Injectable local anesthetic will be considered at follow-up visit and after her venous intervention to debride more aggressively in a tolerable manner. To return to clinic in 2 weeks or call sooner if questions or concerns.
[2018-01-07 13:22] VITALS: BP 152/92; PULSE 86; RESP 14; TEMP 36.9; BMI 36.8
--- NOTE | 2018-01-07 18:40 | PCM.WC.PN ---
(1) Cellulitis of left leg Status: Chronic Current Visit: Yes Code(s): L03.116 - Cellulitis of left lower limb (2) Ulcer of left lower extremity with fat layer exposed Status: Chronic Current Visit: Yes Code(s): L97.922 - Non-pressure chronic ulcer of unspecified part of left lower leg with fat layer exposed (3) Lymphedema Status: Chronic Current Visit: Yes Code(s): I89.0 - Lymphedema, not elsewhere classified (4) Venous ulcer of left lower extremity with varicose veins Status: Chronic Current Visit: Yes Code(s): I83.029 - Varicose veins of left lower extremity with ulcer of unspecified site Type of Wound Date of Service: 01/07/18 Chief Complaint: wound/ulcer on left julio with increased pain History of Wound: Fannie is here today for follow up treatment of a left julio ulcer. She denies fever, chills, increased redness. She has continued wound pain. She has been taking ciprofloxacin as prescribed and uses antimicrobial soap to cleanse the biofilm and contaminated wound bed daily. She denies loss of appetite, nausea or vomiting. She has retried application of CircAid compression wrap and is still not able to tolerate this. She saw vascular surgeon, and is scheduled for venous procedure intervention. Progress of Wound: Fannie's wound is relatively unchanged from her previous visit. She is scheduled to have venous ablation done by Dr. Paz on 01/11 and 01/17 with follow up US on 01/24. She is tolerating Debbie and tubigrip compression. Has had increased pain in her knee over the last week. Wound culture showed normal skin merle. - Physical Exam Vital Signs Temp Pulse Resp BP 98.4 F 86 14 152/92 H 01/07/18 13:22 01/07/18 13:22 01/07/18 13:22 01/07/18 13:22 General: Alert, Oriented x3, Cooperative, No apparent distress HEENT: Atraumatic, Normocephalic Oral: Moist Mucosa Extremities: Edema Skin: Ulcer/ Wound Wound Measurements and Assessment WC - Nurse 1 - General Ulcer Measurement Start: 12/24/17 12:53 Freq: Status: Active Protocol: Activity Type Activity Date Activity User E-Sign Co-Sign Detail Recorded Client Recorded Date Recorded By Document 01/07/18 13:22 [id number] 01/07/18 13:23 01/07/18 13:22 Wound Center Nurse 1 [Ulcer Assessment] #1 Left julio cluster -Combined with other wound No -Current Size (cm) - Length 2.3 -Current Size (cm) - Width 2.3 -Current Size (cm) - Depth 0.3 -Total Square Cm 5.29 -Photo Taken No -Epithelialization None Present -Tunneling No -Undermining/Tunneling No -Circular Undermining No -Exudate Amt Medium (34-66%) -Exudate Type Serosanguineous -Wound Margin Distinct, Outline Attached -Granulation Amt Small (1-33%) -Granulation Quality Pale [place] -Slough/Fibrin No -Necrosis Amt None Present (0 %) -Necrotic Tissue Type Adherent Slough -Structure Exposed None/Limited to Skin Breakdown -Texture (Kira-wound Skin Appearance) No Abnormality Assessed -Moisture (Kira-wound Skin Appearance No Abnormality ) Assessed -Color (Kira-wound Skin Appearance) Assessed Erythema Hemosiderin Staining -Temperature (Kira-wound Skin No Abnormality Appearance) (Pt Warm) -Tenderness on Palpation (Kira-wound No Skin Appearance) -Ulcer Cleansing Rinsed/ Irrigated with Saline -Foul Odor after Cleansing No -Anesthetic Used 4% Lidocaine Solution [Edema Assessment] -Lower Limb Edema Present Yes -Left Calf (cm) 47.7 -Left Ankle (cm) 28.8 WC - Nurse 2 - General Ulcer CM Notes Start: 12/24/17 12:53 Freq: Status: Active Protocol: Activity Type Activity Date Activity User E-Sign Co-Sign Detail Recorded Client Recorded Date Recorded By Document 01/07/18 13:41 [id number] 01/07/18 13:42 01/07/18 13:41 Wound Center Nurse 2 [Procedure/Treatment] #1 Left julio cluster -Time 13:41 -Correct Patient Yes -Correct Side, Site, Position Yes -Correct Procedure Yes -Procedure Performed Yes -Type of Procedure Debridement -Clinical Debridement Subcutaneous -Post Debridement Size (cm) - Length 2.0 -Post Debridement Size (cm) - Width 2.2 -Post Debridement Size (cm) - Depth 0.2 -Total Square Cm 4.40 -Wound/Ulcer Outcome Not Healed -Ulcer Cleansing Rinsed/ Irrigated with Saline -Foul Odor after Cleansing No -Bioengineered Tissue No -Topical Lidocaine (%) 5 -Bleeding Controlled with Pressure -Treatment Response Procedure Tolerated Well [See Physician Procedure note for Specifics] Pain Scale: 0-10 Numeric [Pain] -Is Patient Pain Free? Yes Psych/Mental Status: Normal Affect, Appropriate Debridement Note Post-Debridement Measurements/Treatment WC - Nurse 2 - General Ulcer CM Notes Start: 12/24/17 12:53 Freq: Status: Active Protocol: Activity Type Activity Date Activity User E-Sign Co-Sign Detail Recorded Client Recorded Date Recorded By Document 12/24/17 13:32 TM [id number] 12/24/17 13:33 TM Document 01/07/18 13:41 TM [id number] 01/07/18 13:42 TM 12/24/17 01/07/18 13:32 13:41 Wound Center Nurse 2 #1 Left julio cluster -Time 13:33 13:41 -Correct Patient Yes Yes -Correct Side, Site, Position Yes Yes -Correct Procedure Yes Yes -Procedure Performed Yes Yes -Type of Procedure Debridement Debridement -Clinical Debridement Subcutaneous Subcutaneous -Post Debridement Size (cm) - Length 2.1 2.0 -Post Debridement Size (cm) - Width 2.2 2.2 -Post Debridement Size (cm) - Depth 0.2 0.2 -Total Square Cm 4.62 4.40 -Wound/Ulcer Outcome Not Healed Not Healed -Ulcer Cleansing Rinsed/ Rinsed/ Irrigated with Irrigated with Saline Saline -Foul Odor after Cleansing No No -Bioengineered Tissue No No -Topical Lidocaine (%) 5 5 -Bleeding Controlled with Pressure Pressure -Treatment Response Procedure Procedure Tolerated Well Tolerated Well Pain Scale: 0-10 Numeric Is Patient Pain Free? Yes Yes Wound debrided: left julio cluster Laterality: Left Type of Debridement: Excisional debridement Anesthesia Used: 5% Lidocaine Gel Depth: Down to and including healthy tissue, in the subcutaneous layer Percentage of wound debrided: 100 Instrument Used: 5mm curette Tissue Removed: yellow slough, devitalized tissue Severity: Fat Layer Exposed Amount of bleeding with debridement: Mild Bleeding Controlled with: Compression and gauze Patient tolerated procedure well Assessment/Plan Active Problems Cellulitis of left leg (Chronic) Ulcer of left lower extremity with fat layer exposed (Chronic) Lymphedema (Chronic) Venous ulcer of left lower extremity with varicose veins (Chronic) Assessment: left julio venous ulcer fat layer exposed. 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 lymphedema. Delayed healing. Chronic leg edema. Malnutrition suspected Plan: Fannie's wounds were evaluated and debrided again today. Will continue treatment with Adaptic and Debbie to address any microbial bioburden and provoke granulation. To gently wash with soap and water. To elevate and continue with compression management as tolerated. She is encouraged to elevate legs when at rest. She has followed up with vascular surgery and venous intervention is scheduled for 01/11 and 01/[address] Paz. Venous studies were done previously at [facility] and showed that she has incompetence of veins in her legs b/l at [facility] and [facility]. Encouraged protein supplementation. The pathology assessment demonstrates chronic ulceration without malignancy or other rare abnormality. Her leg x-rays were negative for any fractures, soft tissue emphysema, foreign body, or underlying bone abnormalities adjacent to the wound. Previous infectious disease recommendations are appreciated. I recommend application of advanced wound care provided with growth factors to optimize healing a preauthorization for the effects was already initiated by different provider earlier in her care plan and this was denied for epifix. She has been denied for Regranex as well. She has demonstrated significant delays in healing and this is medically necessary but not approved by her insurance. Her pain is still uncontrolled. She has tramadol to take as needed as well as gabapentin to take at bedtime. It is okay for her to take this once prior to debridement. OARRS appropriate and no signs of abuse. Injectable local anesthetic will be considered at follow-up visit and after her venous intervention to debride more aggressively in a tolerable manner. To return to clinic in 2 weeks or call sooner if questions or concerns.
--- NOTE | 2018-01-07 18:44 | PN.PCM_ITS ---
(1) Cellulitis of left leg Status: Chronic Current Visit: Yes Code(s): L03.116 - Cellulitis of left lower limb (2) Ulcer of left lower extremity with fat layer exposed Status: Chronic Current Visit: Yes Code(s): L97.922 - Non-pressure chronic ulcer of unspecified part of left lower leg with fat layer exposed (3) Lymphedema Status: Chronic Current Visit: Yes Code(s): I89.0 - Lymphedema, not elsewhere classified (4) Venous ulcer of left lower extremity with varicose veins Status: Chronic Current Visit: Yes Code(s): I83.029 - Varicose veins of left lower extremity with ulcer of unspecified site Type of Wound Date of Service: 01/07/18 Chief Complaint: wound/ulcer on left julio with increased pain History of Wound: Fannie is here today for follow up treatment of a left julio ulcer. She denies fever, chills, increased redness. She has continued wound pain. She has been taking ciprofloxacin as prescribed and uses antimicrobial soap to cleanse the biofilm and contaminated wound bed daily. She denies loss of appetite, nausea or vomiting. She has retried application of CircAid compression wrap and is still not able to tolerate this. She saw vascular surgeon, and is scheduled for venous procedure intervention. Progress of Wound: Fannie's wound is relatively unchanged from her previous visit. She is scheduled to have venous ablation done by Dr. Paz on 01/11 and with follow up US on 01/24. She is tolerating Debbie and tubigrip compression. Has had increased pain in her knee over the last week. Wound culture showed normal skin merle. - Physical Exam Vital Signs Temp Pulse Resp BP 98.4 F 86 14 152/92 H 01/07/18 13:22 01/07/18 13:22 01/07/18 13:22 01/07/18 13:22 General: Alert, Oriented x3, Cooperative, No apparent distress HEENT: Atraumatic, Normocephalic Oral: Moist Mucosa Extremities: Edema Skin: Ulcer/ Wound Wound Measurements and Assessment WC - Nurse 1 - General Ulcer Measurement Start: 12/24/17 12:53 Freq: Status: Active Protocol: Activity Type Activity Date Activity User E-Sign Co-Sign Detail Recorded Client Recorded Date Recorded By Document 01/07/18 13:22 [id number] 01/07/18 13:23 01/07/18 13:22 Wound Center Nurse 1 [Ulcer Assessment] #1 Left julio cluster -Combined with other wound No -Current Size (cm) - Length 2.3 -Current Size (cm) - Width 2.3 -Current Size (cm) - Depth 0.3 -Total Square Cm 5.29 -Photo Taken No -Epithelialization None Present -Tunneling No -Undermining/Tunneling No -Circular Undermining No -Exudate Amt Medium (34-66%) -Exudate Type Serosanguineous -Wound Margin Distinct, Outline Attached -Granulation Amt Small (1-33%) -Granulation Quality Pale [place] -Slough/Fibrin No -Necrosis Amt None Present (0 %) -Necrotic Tissue Type Adherent Slough -Structure Exposed None/Limited to Skin Breakdown -Texture (Kira-wound Skin Appearance) No Abnormality Assessed -Moisture (Kira-wound Skin Appearance No Abnormality ) Assessed -Color (Kira-wound Skin Appearance) Assessed Erythema Hemosiderin Staining -Temperature (Kira-wound Skin No Abnormality Appearance) (Pt Warm) -Tenderness on Palpation (Kira-wound No Skin Appearance) -Ulcer Cleansing Rinsed/ Irrigated with Saline -Foul Odor after Cleansing No -Anesthetic Used 4% Lidocaine Solution [Edema Assessment] -Lower Limb Edema Present Yes -Left Calf (cm) 47.7 -Left Ankle (cm) 28.8 WC - Nurse 2 - General Ulcer CM Notes Start: 12/24/17 12:53 Freq: Status: Active Protocol: Activity Type Activity Date Activity User E-Sign Co-Sign Detail Recorded Client Recorded Date Recorded By Document 01/07/18 13:41 [id number] 01/07/18 13:42 01/07/18 13:41 Wound Center Nurse 2 [Procedure/Treatment] #1 Left julio cluster -Time 13:41 -Correct Patient Yes -Correct Side, Site, Position Yes -Correct Procedure Yes -Procedure Performed Yes -Type of Procedure Debridement -Clinical Debridement Subcutaneous -Post Debridement Size (cm) - Length 2.0 -Post Debridement Size (cm) - Width 2.2 -Post Debridement Size (cm) - Depth 0.2 -Total Square Cm 4.40 -Wound/Ulcer Outcome Not Healed -Ulcer Cleansing Rinsed/ Irrigated with Saline -Foul Odor after Cleansing No -Bioengineered Tissue No -Topical Lidocaine (%) 5 -Bleeding Controlled with Pressure -Treatment Response Procedure Tolerated Well [See Physician Procedure note for Specifics] Pain Scale: 0-10 Numeric [Pain] -Is Patient Pain Free? Yes Psych/Mental Status: Normal Affect, Appropriate Debridement Note Post-Debridement Measurements/Treatment WC - Nurse 2 - General Ulcer CM Notes Start: 12/24/17 12:53 Freq: Status: Active Protocol: Activity Type Activity Date Activity User E-Sign Co-Sign Detail Recorded Client Recorded Date Recorded By Document 12/24/17 13:32 TM [id number] 12/24/17 13:33 TM Document 01/07/18 13:41 TM [id number] 01/07/18 13:42 TM 12/24/17 01/07/18 13:32 13:41 Wound Center Nurse 2 #1 Left julio cluster -Time 13:33 13:41 -Correct Patient Yes Yes -Correct Side, Site, Position Yes Yes -Correct Procedure Yes Yes -Procedure Performed Yes Yes -Type of Procedure Debridement Debridement -Clinical Debridement Subcutaneous Subcutaneous -Post Debridement Size (cm) - Length 2.1 2.0 -Post Debridement Size (cm) - Width 2.2 2.2 -Post Debridement Size (cm) - Depth 0.2 0.2 -Total Square Cm 4.62 4.40 -Wound/Ulcer Outcome Not Healed Not Healed -Ulcer Cleansing Rinsed/ Rinsed/ Irrigated with Irrigated with Saline Saline -Foul Odor after Cleansing No No -Bioengineered Tissue No No -Topical Lidocaine (%) 5 5 -Bleeding Controlled with Pressure Pressure -Treatment Response Procedure Procedure Tolerated Well Tolerated Well Pain Scale: 0-10 Numeric Is Patient Pain Free? Yes Yes Wound debrided: left julio cluster Laterality: Left Type of Debridement: Excisional debridement Anesthesia Used: 5% Lidocaine Gel Depth: Down to and including healthy tissue, in the subcutaneous layer Percentage of wound debrided: 100 Instrument Used: 5mm curette Tissue Removed: yellow slough, devitalized tissue Severity: Fat Layer Exposed Amount of bleeding with debridement: Mild Bleeding Controlled with: Compression and gauze Patient tolerated procedure well Assessment/Plan Active Problems Cellulitis of left leg (Chronic) Ulcer of left lower extremity with fat layer exposed (Chronic) Lymphedema (Chronic) Venous ulcer of left lower extremity with varicose veins (Chronic) Assessment: left julio venous ulcer fat layer exposed. 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 lymphedema. Delayed healing. Chronic leg edema. Malnutrition suspected Plan: Fannie's wounds were evaluated and debrided again today. Will continue treatment with Adaptic and Debbie to address any microbial bioburden and provoke granulation. To gently wash with soap and water. To elevate and continue with compression management as tolerated. She is encouraged to elevate legs when at rest. She has followed up with vascular surgery and venous intervention is scheduled for 01/11 and 01/[address] Paz. Venous studies were done previously at [facility] and showed that she has incompetence of veins in her legs b/l at [facility] and [facility]. Encouraged protein supplementation. The pathology assessment demonstrates chronic ulceration without malignancy or other rare abnormality. Her leg x-rays were negative for any fractures, soft tissue emphysema, foreign body, or underlying bone abnormalities adjacent to the wound. Previous infectious disease recommendations are appreciated. I recommend application of advanced wound care provided with growth factors to optimize healing a preauthorization for the effects was already initiated by different provider earlier in her care plan and this was denied for epifix. She has been denied for Regranex as well. She has demonstrated significant delays in healing and this is medically necessary but not approved by her insurance. Her pain is still uncontrolled. She has tramadol to take as needed as well as gabapentin to take at bedtime. It is okay for her to take this once prior to debridement. OARRS appropriate and no signs of abuse. Injectable local anesthetic will be considered at follow-up visit and after her venous intervention to debride more aggressively in a tolerable manner. To return to clinic in 2 weeks or call sooner if questions or concerns.
== END 2018-01-11 23:59 ==
LOC: WC 13:00
PROVIDERS: Family Provider Family Medicine; PCP Family Medicine; Visit Provider Family Medicine
DX: I83.028 Varicose veins of left lower extremity with ulcer other part of lower leg (principal); L97.822 Non-pressure chronic ulcer of other part of left lower leg with fat layer exposed; L03.116 Cellulitis of left lower limb; I89.0 Lymphedema, not elsewhere classified
CPT/HCPCS: 11042; 87070; 87075; 87077; 87186; 87205

== ENCOUNTER 2018-01-28 08:57 | Outpatient (RCR) | payer OTHER, SELFPAY ==
[2018-01-12 00:38] VITALS: BP 152/92; PULSE 86; RESP 14; TEMP 36.9; BMI 36.8
== END 2018-02-11 23:59 ==
LOC: WC 08:57
PROVIDERS: Family Provider Family Medicine; PCP Family Medicine; Visit Provider Family Medicine
DX: Z09 Encounter for follow-up examination after completed treatment for conditions other than malignant neoplasm (principal)